=== PATIENT | male | born 1955 | race Caucasian/White ===

== ENCOUNTER 2016-04-09 08:22 | Emergency (ER) | payer OTHER ==
--- NOTE | 2016-04-09 09:58 | ER Document Report ---
HPI - HPI Patient complains to provider of: rash Onset: This morning Onset/Duration: Sudden Quality of pain: Achy, Burning Severity: Severe Pain Level: 5 Context: Patient presents to the emergency department with complaints of a rash that just started this morning. Patient reports history of shingles. He reports it feels the same way. He denies other symptoms such as fever vomiting diarrhea. He has not received a shingles vaccine Associated Symptoms: None Exacerbated by: Denies Relieved by: Denies Similar symptoms previously: Yes Recently seen / treated by doctor: No - DERM Skin Color: Normal Past Medical History - General Information source: Patient - Social History Smoking Status: Current Every Day Smoker Cigarette use (# per day): Yes Chew tobacco use (# tins/day): No Frequency of alcohol use: None Drug Abuse: None Lives with: Family - Son Family History: Reviewed & Not Pertinent Patient has suicidal ideation: No Patient has homicidal ideation: No - Past Medical History Cardiac Medical History: Reports: Hx Hypercholesterolemia, Hx Hypertension Pulmonary Medical History: Reports: Hx COPD Neurological Medical History: Reports: Hx Cerebrovascular Accident - x 4 Renal/ Medical History: Denies: Hx Peritoneal Dialysis Past Surgical History: Reports: Hx Carotid Endarterectomy - R carotid endarterectomy 2 years ago, left carotid enterectomy 3 days ago., Hx Orthopedic Surgery - left shoulder, left leg, Hx Vascular Surgery - Left femoral endarterectomy with left external iliac angioplasty and stent. - Immunizations Hx Diphtheria, Pertussis, Tetanus Vaccination: Yes Vertical Provider Document - CONSTITUTIONAL Agree With Documented VS: Yes Exam Limitations: No Limitations General Appearance: WD/WN, No Apparent Distress - INFECTION CONTROL TRAVEL OUTSIDE OF THE [place] IN LAST 30 DAYS: No - HEENT HEENT: Atraumatic, Normocephalic - NECK Neck: Normal Inspection, Supple. negative: Lymphadenopathy-Left, Lymphadenopathy-Right - RESPIRATORY Respiratory: Breath Sounds Normal, No Respiratory Distress O2 Sat by Pulse Oximetry: 96 - CARDIOVASCULAR Cardiovascular: Regular Rate - GI/ABDOMEN Gastrointestinal: Abdomen Soft, Abdomen Non-Tender - BACK Back: Normal Inspection - MUSCULOSKELETAL/EXTREMETIES Musculoskeletal/Extremeties: MAEW, FROM - NEURO Level of Consciousness: Awake, Alert, Appropriate Motor/Sensory: No Motor Deficit - DERM Integumentary: Warm, Dry, Rash - Typical shingles rash noted to patient's lower left side back upper buttocks area. small scattered vesicles with no open wounds Adult Front & Back Diagram: 1 - shingles rash Course - Re-evaluation Re-evalutation: 04/09/16 Patient instructed on medication. He reports he's taking valacyclovir before. [facility] and to [facility] vaccine. Medication prescriptions were written. Pharmacy latter called and reports patient cannot afford the medication and he cannot wait until the [facility] tomorrow. Valcyclovir was changed to acyclovir. Patient was notified of the switch in medication - Vital Signs Vital signs: Temp Pulse Resp BP Pulse Ox 98.1 F 86 20 175/84 H 96 04/09/16 08:26 04/09/16 08:26 04/09/16 08:26 04/09/16 08:26 04/09/16 08:26 Discharge - Discharge Clinical Impression: Elevated blood pressure reading Shingles Qualifiers: Herpes zoster complications: without complications Qualified Code(s): B02.9 - Zoster without complications Condition: Stable Disposition: HOME, SELF-CARE Instructions: Oral Narcotic Medication ([facility]), Shingles ([facility]), Use of Diphenhydramine Additional Instructions: *You have been treated for shingles *Take medication as prescribed *Monitor the site for signs of infection such as increasing redness, swelling, warmth, pain *Take benadryl as indicated *[facility] *Monitor your blood pressure. Your blood pressure was elevated today. This may be because you were anxious, in pain or because you need medication. It is important to follow up with your primary care provider for full evaluation. *Return to ED for signs of infection, worsening condition, changes, needs Prescriptions: Hydrocodone/Acetaminophen [[place] 5-325 Tablet] 1 each PO QID #15 tablet Valacyclovir HCl [Valacyclovir] 1,000 mg PO TID #21 tablet Forms: Elevated Blood Pressure
[2016-04-09 10:12] VITALS: BP 119/79
== END 2016-04-09 10:11 | disposition home or self-care (01) ==
LOC: ER 08:22
DX: B02.9 Zoster without complications (principal); R03.0 Elevated blood-pressure reading, without diagnosis of hypertension; R21 Rash and other nonspecific skin eruption; F17.210 Nicotine dependence, cigarettes, uncomplicated
CPT/HCPCS: 99282

== ENCOUNTER 2016-08-02 10:24 | Emergency (ER) | payer OTHER ==
[2016-08-02] MEDS ORDERED: PENICILLIN V POTASSIUM 500 MG TABLET PO ONE (11:02)
--- NOTE | 2016-08-02 11:06 | ER Document Report ---
HPI - HPI Patient complains to provider of: dental pain Onset: Yesterday Onset/Duration: Gradual Quality of pain: Achy Pain Level: 5 Context: Pt complains of left lower jaw pain and swelling from an infected broken tooth. Pt denies any fever. Patient states that he knows that his blood pressure is up because he just took his medicine just prior to coming into the emergency department this morning and it has not had time yet to bring his blood pressure down where it typically runs. Associated Symptoms: Other - Dental pain. denies: Fever Exacerbated by: Denies Relieved by: Denies Similar symptoms previously: Yes Recently seen / treated by doctor: No - ROS ROS below otherwise negative: Yes Systems Reviewed and Negative: Yes All other systems reviewed and negative - CONSTITUTIONAL Constitutional: DENIES: Fever, Chills - EENT Notes: Dental pain - NEURO Neurology: DENIES: Headache - CARDIOVASCULAR Cardiovascular: DENIES: Chest pain - GASTROINTESTINAL Gastrointestinal: DENIES: Nausea, Patient vomiting - MUSCULOSKELETAL Musculoskeletal: DENIES: Back Pain, Neck Pain - DERM Skin Color: Normal Skin Problems: None Past Medical History - General Information source: Patient - Social History Smoking Status: Current Every Day Smoker Chew tobacco use (# tins/day): No Frequency of alcohol use: None Drug Abuse: None Occupation: none Family History: Reviewed & Not Pertinent Patient has suicidal ideation: No Patient has homicidal ideation: No - Past Medical History Cardiac Medical History: Reports: Hx Hypercholesterolemia, Hx Hypertension Pulmonary Medical History: Reports: Hx COPD Neurological Medical History: Reports: Hx Cerebrovascular Accident - x 4 Renal/ Medical History: Denies: Hx Peritoneal Dialysis Past Surgical History: Reports: Hx Carotid Endarterectomy - R carotid endarterectomy 2 years ago, left carotid enterectomy 3 days ago., Hx Orthopedic Surgery - left shoulder, left leg, Hx Vascular Surgery - Left femoral endarterectomy with left external iliac angioplasty and stent. - Immunizations Hx Diphtheria, Pertussis, Tetanus Vaccination: Yes Vertical Provider Document - CONSTITUTIONAL Agree With Documented VS: Yes Exam Limitations: No Limitations General Appearance: WD/WN, No Apparent Distress - INFECTION CONTROL TRAVEL OUTSIDE OF THE [place] IN LAST 30 DAYS: No - HEENT HEENT: Atraumatic, Normocephalic. negative: Pharyngeal Exudate, Pharyngeal Tenderness, Pharyngeal Erythema, Tympanic Membrane Red, Tympanic Membrane Bulging Mouth Diagram: 1 - Decay, dental fracture 2 - tender indurated area, no drainable abscess Notes: swelling along the left lower submandibular area, no submental swelling, no sublingual swelling, no potential airway compromise. - NECK Neck: Normal Inspection, Supple. negative: Lymphadenopathy-Left, Lymphadenopathy-Right - RESPIRATORY Respiratory: Breath Sounds Normal, No Respiratory Distress, Chest Non-Tender O2 Sat by Pulse Oximetry: 97 - CARDIOVASCULAR Cardiovascular: Regular Rate, Regular Rhythm, No Murmur - MUSCULOSKELETAL/EXTREMETIES Musculoskeletal/Extremeties: MAEW - NEURO Level of Consciousness: Awake, Alert, Appropriate - DERM Integumentary: Warm, Dry, No Rash Course - Re-evaluation Re-evalutation: 08/02/16 11:05 The patient has been informed that they may have pre-hypertension or hypertension based on a blood pressure reading in the emergency department. I recommend that patient call the primary care provider listed on their discharge instructions or a physician of their choice by this week to arrange follow-up for further evaluation of possible pre-hypertension her hypertension. - Vital Signs Vital signs: Temp Pulse Resp BP Pulse Ox 97.5 F 98 16 211/107 H 97 08/02/16 10:32 08/02/16 10:32 08/02/16 10:32 08/02/16 10:32 08/02/16 10:32 Discharge - Discharge Clinical Impression: Infected dental caries, Hx of essential hypertension Condition: Stable Disposition: HOME, SELF-CARE Instructions: Toothache ([facility]), Oral Narcotic Medication ([facility]), Penicillin V K ( [facility]), Dentist, Dental Infection or Abscess ([facility]) Additional Instructions: Return immediately for any new or worsening symptoms Followup with your primary care provider, call tomorrow to make a followup appointment, your blood pressure was elevated today your doctor can recheck this for you Follow up with a dentist for further management Prescriptions: Oxycodone HCl/Acetaminophen [Percocet 5-325 mg Tablet] 1 tab PO ASDIR PRN #15 tablet PRN Reason: Penicillin V Potassium [Penicillin Vk 500 mg Tablet] 500 mg PO BID #20 tablet Referrals: [facility] [Provider Group] - Follow up as needed [facility] [Provider Group] - Follow up in 3-5 days
[2016-08-02 11:18] VITALS: BP 161/94
== END 2016-08-02 11:20 | disposition home or self-care (01) ==
LOC: ER 10:24
DX: K02.9 Dental caries, unspecified (principal); K04.7 Periapical abscess without sinus; K08.89 Other specified disorders of teeth and supporting structures; I10 Essential (primary) hypertension; J44.9 Chronic obstructive pulmonary disease, unspecified; F17.200 Nicotine dependence, unspecified, uncomplicated; Z86.73 Personal history of transient ischemic attack (TIA), and cerebral infarction without residual deficits; Z79.899 Other long term (current) drug therapy
CPT/HCPCS: 99282

== ENCOUNTER → 2017-04-26 | Outpatient (CLI) | payer OTHER ==
--- NOTE | 2017-04-27 08:25 | XCELERA REPORT ---
[address] [address] Lower Extremity Arterial Evaluation Name: MIRYAM GOFF Age: 61 yrs Gender: Male : 1955 Patient Status: Outpatient Patient Location: Study Date: 04/26/2017 02:20 PM Procedure: A color flow and duplex scan of the lower extremity arteries was performed bilaterally with velocity and waveform anaylsis. Ankle brachial indicies performed. Reason For Study: PVD Ordering Physician: CALVIN CAGLE Performed By: Sonya Boyd Measurements and Calculations Right Left COMMERCIAL AGENT PSV 139.1 36.2 cm/sec Prox PFA PSV -249.2 -84.9 cm/sec Dist SFA PSV -41.5 cm/sec Prox Pop A PSV 23.9 32.1 cm/sec Dist Pop A PSV -32.2 -23.6 cm/sec Prox FAVIOLA PSV 29.4 cm/sec Dist FAVIOLA PSV 23.9 8.8 cm/sec Prox CATERING SERVICE MANAGER PSV 28.4 41.5 cm/sec Dist CATERING SERVICE MANAGER PSV 22.9 34.3 cm/sec Dist Moraima A PSV 16.1 11.0 cm/sec Shelton Pedis PSV 26.1 13.2 cm/sec Right Side Arterial Evaluation Normal velocity and biphasic waveforms noted in the Common Femoral artery. Biphasic with increased velocity in the Deep Femoral artery. Occluded Femoral artery. Monophasic with reduced velocities, Popliteal to the infrageniculate vessels. 20-49 % stenosis at the Aorto Iliac inflow. with sequential disease. Ankle Brachial index is 0.62. Left Side Arterial Evaluation Near normal velocity and biphasic waveforms noted in the Common Femoral artery. Occluded Femoral artery. Monophasic with reduced velocities, Popliteal to the infrageniculate vessels. Short segment occlusion in the Anterior Tibial artery. 20-49 % stenosis at the Aorto Iliac inflow. with severe sequential disease. Ankle Brachial index is 0.46. Interpretation Summary Severe hemodynamically significant lesions in the bilateral lower extremities, on duplex imaging, at rest. Multilevel , complex PAD , worse on left. : CALVIN CAGLE > Calvin Cagle
== END ==
LOC: SP 13:53
PROVIDERS: ATTEND Surgery
DX: I73.9 Peripheral vascular disease, unspecified (principal)
CPT/HCPCS: 93925

== ENCOUNTER 2017-11-13 11:45 | Emergency (ER) | payer OTHER ==
--- NOTE | 2017-11-13 12:58 | ER Document Report ---
ED General - General Chief Complaint: Wound Infection Stated Complaint: ABSCESS Time Seen by Provider: 11/13/17 12:28 Mode of Arrival: Medic Information source: Patient, Outside Facility Records Notes: Patient was sent from the [facility] facility for concerns about a skin infection and wound infection. Patient has had erythema along surgical incision to his left AKA. Patient states that he has had previous episodes of in traction and was treated with antibiotics. Patient is not presently taking any antibiotics at this time. Patient also states that he leaks urine typically at nighttime but has been doing this for some time. Transfer note from the rehab facility states the patient has been lethargic. Patient presently awake alert oriented answering history questions without difficulty. TRAVEL OUTSIDE OF THE [place] IN LAST 30 DAYS: No - HPI Onset: This morning Onset/Duration: Gradual Pain Level: Denies Associated symptoms: denies: Chest pain, Nonproductive cough, Productive cough, Fever, Nausea, Vomiting Exacerbated by: Denies Relieved by: Denies Similar symptoms previously: Yes Recently seen / treated by doctor: No - Related Data Allergies/Adverse Reactions: No Known Allergies Allergy (Verified 08/02/16 10:28) Past Medical History - General Information source: Patient, Outside Facility Records - Social History Smoking Status: Never Smoker Frequency of alcohol use: None Drug Abuse: None [facility] with: [facility] Family History: Reviewed & Not Pertinent - Past Medical History Cardiac Medical History: Reports: Hx Hypercholesterolemia, Hx Hypertension Pulmonary Medical History: Reports: Hx COPD Neurological Medical History: Reports: Hx Cerebrovascular Accident - x 4 Renal/ Medical History: Denies: Hx Peritoneal Dialysis Psychiatric Medical History: Reports: Hx Post Traumatic Stress Disorder Past Surgical History: Reports: Hx Carotid Endarterectomy - R carotid endarterectomy 2 years ago, left carotid enterectomy 3 days ago., Hx Orthopedic Surgery - left shoulder, left leg, Hx Vascular Surgery - Left femoral endarterectomy with left external iliac angioplasty and stent. - Immunizations Hx Diphtheria, Pertussis, Tetanus Vaccination: Yes Review of Systems - Review of Systems Constitutional: No symptoms reported. denies: Fever, Recent illness EENT: No symptoms reported Cardiovascular: No symptoms reported. denies: Chest pain Respiratory: No symptoms reported. denies: Cough, Short of breath Gastrointestinal: No symptoms reported. denies: Abdominal pain, Nausea, Vomiting Genitourinary: Incontinence Male Genitourinary: No symptoms reported Musculoskeletal: Other - Phantom limb pain to left leg Skin: Other - Erythema along left AKA, scattered erythematous skin lesions to abdomen and extremities Hematologic/Lymphatic: No symptoms reported Neurological/Psychological: No symptoms reported Physical Exam - Vital signs Vitals: Resp Pulse Ox 18 96 11/13/17 13:18 11/13/17 13:18 - General General appearance: Appears well, Alert. No: Lethargic In distress: None - HEENT Head: Normocephalic, Atraumatic Eyes: Normal Conjunctiva: Normal Nasal: Normal Mouth/Lips: Normal Neck: Normal, Supple. No: Lymphadenopathy - Respiratory Respiratory status: No respiratory distress Chest status: Nontender Breath sounds: Normal. No: Rales, Rhonchi, Stridor, Wheezing Chest palpation: Normal - Cardiovascular Rhythm: Regular Heart sounds: S1 appreciated, S2 appreciated - Abdominal Inspection: Normal Distension: No distension Bowel sounds: Normal Tenderness: Nontender Organomegaly: No organomegaly - Back Back: Normal, Nontender - Extremities General upper extremity: Other - weakness to LUE, contracture to left hand General lower extremity: Other - L aka - Neurological Neuro grossly intact: Yes Cognition: Normal Miesha Coma Scale Eye Opening: Spontaneous [place] Coma Scale Verbal: Oriented Miesha Coma Scale Motor: Obeys Commands Miesha Coma Scale Total: 15 - Psychological Associated symptoms: Normal affect, Normal mood - Skin Skin Temperature: Warm Skin Moisture: Dry Skin Color: Erythema - Erythema noted along left AKA stump wound. Multiple erythematous pustular lesion to bilateral extremity and lower abdomen. Abrasion noted to scrotum Skin irregularity: negative: Abscess Course - Re-evaluation Re-evalutation: 11/13/17 15:41 Patient nontoxic in appearance. She without fever or any leukocytosis. No concern for sepsis at this time. Wound culture is pending, will cover with antibiotics for left stump cellulitis with folliculitis to abdomen. Patient has been awake alert oriented and able to give good history regarding his presentation. Patient has not been lethargic during his entire stay in the ER. - Vital Signs Vital signs: Temp Pulse Resp BP Pulse Ox 97.5 F 12 147/80 H 99 11/13/17 17:01 11/13/17 17:00 11/13/17 17:01 11/13/17 15:00 - Laboratory Result Diagrams: 11/13/17 13:30 11/13/17 13:30 Laboratory results interpreted by me: 11/13/17 11/13/17 11/13/17 13:30 13:30 15:00 RBC 4.17 L Hgb 12.0 L Hct 36.1 L RDW 14.7 H Carbon Dioxide 31 H Albumin 3.3 L Urine Urobilinogen 2.0 H Labs- Entire Visit 11/13/17 11/13/17 11/13/17 13:30 13:30 13:30 WBC 9.5 RBC 4.17 L Hgb 12.0 L Hct 36.1 L MCV 87 MCH 28.9 MCHC 33.3 RDW 14.7 H Plt Count 446 Seg Neutrophils % 73.5 Lymphocytes % 15.0 Monocytes % 5.9 Eosinophils % 5.0 Basophils % 0.6 Absolute Neutrophils 7.0 Absolute Lymphocytes 1.4 Absolute Monocytes 0.6 Absolute Eosinophils 0.5 Absolute Basophils 0.1 Sodium 140.3 Potassium 4.0 Chloride 102 Carbon Dioxide 31 H Anion Gap 7 BUN 8 Creatinine 0.68 Est GFR ( Amer) > 60 Est GFR (Non-Af Amer) > 60 Glucose 108 Lactic Acid 0.9 Calcium 9.2 Total Bilirubin 0.7 Direct Bilirubin 0.4 Neonat Total Bilirubin Not Reportable Neonat Direct Bilirubin Not Reportable Neonat Indirect Bili Not Reportable AST 26 ALT 28 Alkaline Phosphatase 79 Total Protein 6.3 Albumin 3.3 L Urine Color Urine Appearance Urine pH Ur Specific [place] Urine Protein Urine Glucose (UA) Urine Ketones Urine Blood Urine Nitrite Urine Bilirubin Urine Urobilinogen Ur Leukocyte Esterase Urine WBC (Auto) Urine RBC (Auto) U Hyaline Cast (Auto) Urine Mucus (Auto) Urine Ascorbic Acid 11/13/17 15:00 WBC RBC Hgb Hct MCV MCH MCHC RDW Plt Count Seg Neutrophils % Lymphocytes % Monocytes % Eosinophils % Basophils % Absolute Neutrophils Absolute Lymphocytes Absolute Monocytes Absolute Eosinophils Absolute Basophils Sodium Potassium Chloride Carbon Dioxide Anion Gap BUN Creatinine Est GFR ( Amer) Est GFR (Non-Af Amer) Glucose Lactic Acid Calcium Total Bilirubin Direct Bilirubin Neonat Total Bilirubin Neonat Direct Bilirubin Neonat Indirect Bili AST ALT Alkaline Phosphatase Total Protein Albumin Urine Color YELLOW Urine Appearance SLIGHTLY-CLOUDY Urine pH 6.0 Ur Specific [place] 1.016 Urine Protein NEGATIVE Urine Glucose (UA) NEGATIVE Urine Ketones NEGATIVE Urine Blood NEGATIVE Urine Nitrite NEGATIVE Urine Bilirubin NEGATIVE Urine Urobilinogen 2.0 H Ur Leukocyte Esterase NEGATIVE Urine WBC (Auto) 3 Urine RBC (Auto) 2 U Hyaline Cast (Auto) 1 Urine Mucus (Auto) OCC Urine Ascorbic Acid NEGATIVE Discharge - Discharge Clinical Impression: Folliculitis Cellulitis Qualifiers: Site of cellulitis: extremity Site of cellulitis of extremity: lower extremity Laterality: left Qualified Code(s): L03.116 - Cellulitis of left lower limb Condition: Stable Disposition: HOME, SELF-CARE Instructions: Cellulitis ([facility]), Cephalexin ([facility]), Folliculitis ([facility]) Additional Instructions: Return immediately for any new or worsening symptoms Followup with your primary care provider, call tomorrow to make a followup appointment Cultures are pending, we will call if you need any different treatment Prescriptions: Cephalexin Monohydrate [Keflex 500 mg Capsule] 500 mg PO Q6H 7 Days capsule Referrals: [facility] [Provider Group] - Follow up as needed
[2017-11-13] MEDS ORDERED: CEFTRIAXONE INJ 1000 MG VIAL IV ONE (13:16)
[2017-11-13 14:08] LABS: ABSOLUTE BASOPHILS # (AUTO) 0.1 10^3/uL (0.0-0.2); ABSOLUTE EOSINOPHILS # (AUTO) 0.5 10^3/uL (0.0-0.6); ABSOLUTE LYMPHOCYTES (AUTO) 1.4 10^3/uL (0.5-4.7); ABSOLUTE MONOCYTES (AUTO) 0.6 10^3/uL (0.1-1.4); BASOPHILS % (AUTO) 0.6 % (0-2); HEMATOCRIT 36.1 % (37.9-51.0); MEAN CORPUSCULAR HEMOGLOBIN 28.9 pg (27.0-33.4); MEAN CORPUSCULAR HGB CONC 33.3 g/dL (32.0-36.0); MEAN CORPUSCULAR VOLUME 87 fl (80-97); MONOCYTES % (AUTO) 5.9 % (3-13); PLATELET COUNT 446 10^3/uL (150-450); RED BLOOD COUNT 4.17 10^6/uL (4.35-5.55); RED CELL DISTRIBUTION WIDTH 14.7 % (11.5-14.0); SEGMENTED NEUTROPHILS % (AUTO) 73.5 % (42-78); TOTAL CELLS COUNTED % (AUTO) 100 %; WHITE BLOOD COUNT 9.5 10^3/uL (4.0-10.5)
[2017-11-13 14:24] LABS: ALANINE AMINOTRANSFERASE 28 U/L (21-72); ALBUMIN 3.3 g/dL (3.5-5.0); ALKALINE PHOSPHATASE 79 U/L (38-126); ANION GAP 7 (5-19); ASPARTATE AMINO TRANSFERASE 26 U/L (17-59); BILIRUBIN,DIRECT 0.4 mg/dL (0.0-0.4); BILIRUBIN,TOTAL 0.7 mg/dL (0.2-1.3); BLOOD UREA NITROGEN 8 mg/dL (7-20); CALCIUM 9.2 mg/dL (8.4-10.2); CARBON DIOXIDE 31 mmol/L (22-30); CHLORIDE 102 mmol/L (98-107); GLUCOSE 108 mg/dL (75-110); SODIUM 140.3 mmol/L (137-145); TOTAL PROTEIN 6.3 g/dL (6.3-8.2)
[2017-11-13 15:23] LABS: APPEARANCE,URINE SLIGHTLY-CLOUDY; BILIRUBIN,URINE NEGATIVE (NEGATIVE); COLOR,URINE YELLOW; GLUCOSE, URINE NEGATIVE (NEGATIVE); KETONES,URINE NEGATIVE (NEGATIVE); LEUKOCYTE ESTERASE,URINE NEGATIVE (NEGATIVE); NITRITE,URINE NEGATIVE (NEGATIVE); PROTEIN,URINE NEGATIVE (NEGATIVE); URINE SPECIFIC GRAVITY 1.016
[2017-11-13] MEDS ORDERED: OXYCODONE HCL IR 5 MG TABLET PO ONE ×2 (16:20→16:33)
[2017-11-13 17:08] VITALS: BP 147/80
== END 2017-11-13 17:08 | disposition home or self-care (01) ==
LOC: ER 11:45
DX: L03.116 Cellulitis of left lower limb (principal); L73.9 Follicular disorder, unspecified; G54.6 Phantom limb syndrome with pain; Z89.612 Acquired absence of left leg above knee; S30.813A Abrasion of scrotum and testes, initial encounter; X58.XXXA Exposure to other specified factors, initial encounter; R32 Unspecified urinary incontinence; I10 Essential (primary) hypertension; J44.9 Chronic obstructive pulmonary disease, unspecified; R53.1 Weakness
CPT/HCPCS: 99283; 96374; 36415; 87040; 87086; 87070; 87205; 83605; 85025; 87077; 80053; 81001; 87186; J0696

== ENCOUNTER 2018-03-19 11:58 | Emergency (ER) | payer OTHER ==
--- NOTE | 2018-03-19 13:18 | ER Document Report ---
ED Medical Screen (RME) - General Chief Complaint: Abscess Stated Complaint: LEFT THIGH PAIN Time Seen by Provider: 03/19/18 13:12 Primary Care Provider: JASPAL PUENTE MD [Primary Care Provider] - Follow up as needed Mode of Arrival: Wheelchair Information source: Patient Notes: Patient presents to the emergency department with complaints of abscess to his left leg. Patient has left BKA. The BKA due to poor circulation attempted bypass and infection. He reports he believes it started last week when he was not sitting with a pad in his wheelchair and the area rubbed against a wheelchair. He reports abscess is draining and is very large. He reports he could not put on his prosthetic leg today because of the abscess and pain. Denies fever vomiting diarrhea. Denies history of MRSA. I have greeted and performed a rapid initial assessment of this patient. A comprehensive ED assessment and evaluation of the patient, analysis of test results and completion of the medical decision making process will be conducted by additional ED providers. Dictation of this chart was performed using voice recognition software; therefore, there may be some unintended grammatical errors. TRAVEL OUTSIDE OF THE [place] IN LAST 30 DAYS: No - Related Data Allergies/Adverse Reactions: No Known Allergies Allergy (Verified 03/19/18 11:59) Past Medical History - Past Medical History Cardiac Medical History: Reports: Hx Hypercholesterolemia, Hx Hypertension Pulmonary Medical History: Reports: Hx COPD Neurological Medical History: Reports: Hx Cerebrovascular Accident - x 4 Renal/ Medical History: Denies: Hx Peritoneal Dialysis Psychiatric Medical History: Reports: Hx Post Traumatic Stress Disorder Past Surgical History: Reports: Hx Carotid Endarterectomy - R carotid endarterectomy 2 years ago, left carotid enterectomy 3 days ago., Hx Orthopedic Surgery - left shoulder, left leg, Hx Vascular Surgery - Left femoral endarterectomy with left external iliac angioplasty and stent. - Immunizations Hx Diphtheria, Pertussis, Tetanus Vaccination: Yes Physical Exam - Vital signs Vitals: Temp Pulse Resp BP Pulse Ox 98.3 F 87 24 H 139/69 H 99 03/19/18 12:29 03/19/18 12:29 03/19/18 12:29 03/19/18 12:29 03/19/18 12:29 Course - Vital Signs Vital signs: Temp Pulse Resp BP Pulse Ox 98.3 F 87 24 H 139/69 H 99 03/19/18 12:29 03/19/18 12:29 03/19/18 12:29 03/19/18 12:29 03/19/18 12:29 Doctor's Discharge - Discharge Referrals: JASPAL PUENTE MD [Primary Care Provider] - Follow up as needed
[2018-03-19] MEDS ORDERED: CEPHALEXIN 500 MG CAPSULE PO ONE (16:26)
[2018-03-19] MEDS ORDERED: SULFAMETHOXAZOLE/TRIMETHOPRIM 800-160 MG TABLET PO ONE (16:26)
--- NOTE | 2018-03-19 16:36 | ER Document Report ---
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 Patient is concerned that it is a new abscess. Does have a history of abscesses in the past. Patient denies fevers, chills, nausea, vomiting, shortness of breath, chest pain, warmth at the site. No other complaints TRAVEL OUTSIDE OF THE [place] IN LAST 30 DAYS: No - Related Data Allergies/Adverse Reactions: No Known Allergies Allergy (Verified 03/19/18 11:59) Past Medical History - General Information source: Patient - Social History Smoking Status: Current Every Day Smoker Frequency of alcohol use: None Drug Abuse: None Family History: Reviewed & Not Pertinent Patient has suicidal ideation: No Patient has homicidal ideation: No - Past Medical History Cardiac Medical History: Reports: Hx Hypercholesterolemia, Hx Hypertension Pulmonary Medical History: Reports: Hx COPD Neurological Medical History: Reports: Hx Cerebrovascular Accident - x 4 Renal/ Medical History: Denies: Hx Peritoneal Dialysis Psychiatric Medical History: Reports: Hx Depression - PTSD, Hx Post Traumatic Stress Disorder Past Surgical History: Reports: Hx Carotid Endarterectomy - R carotid endarterectomy 2 years ago, left carotid enterectomy 3 days ago., Hx Orthopedic Surgery - left shoulder, left leg, Hx Vascular Surgery - Left femoral endarterectomy with left external iliac angioplasty and stent. - Immunizations Hx Diphtheria, Pertussis, Tetanus Vaccination: Yes Review of Systems - Review of Systems Constitutional: See HPI EENT: No symptoms reported Cardiovascular: See HPI Respiratory: See HPI Gastrointestinal: See HPI Genitourinary: No symptoms reported Male Genitourinary: No symptoms reported Musculoskeletal: No symptoms reported Skin: No symptoms reported Hematologic/Lymphatic: No symptoms reported Neurological/Psychological: No symptoms reported Physical Exam - Vital signs Vitals: Temp Pulse Resp BP Pulse Ox 98.3 F 87 24 H 139/69 H 99 03/19/18 12:29 03/19/18 12:29 03/19/18 12:29 03/19/18 12:29 03/19/18 12:29 - Notes Notes: PHYSICAL EXAMINATION: Reviewed vital signs and charting by RN GENERAL: Alert, interacts well. No acute distress. HEAD: Normocephalic, atraumatic. EYES: Pupils equal, round. Extraocular movements intact. ENT: Oral mucosa moist. NECK: Full range of motion. Supple. Trachea midline. EXTREMITIES: Left AKA with abscess on the posterior proximal aspect. There is a hole about the size of a dime with a large mucous plug partially sticking out. There is surrounding erythema. NEUROLOGICAL: Alert and oriented x3. Normal speech. PSYCH: Normal affect, normal mood. Course - Re-evaluation Re-evalutation: 03/19/18 17:36 Well-appearing nontoxic 62-year-old male presents for abscess. Upon inspection there is a large mucous plug and a large open hole the size of a dime. I pulled the mucous plug out and used a pair of small hemostats to find that there was tracking. I was able to express purulent discharge. There is surrounding erythema consistent with mild cellulitis. Plan is for double coverage for MSSA/MRSA. Patient is being seen by the wound clinic and instructed him to call them tomorrow for sooner follow-up the next week. Patient does not have any fevers or any evidence of sepsis or sirs. Stable for discharge with close follow-up. - Vital Signs Vital signs: Temp Pulse Resp BP Pulse Ox 98.3 F 80 20 135/60 H 100 03/19/18 16:00 03/19/18 16:00 03/19/18 16:00 03/19/18 16:00 03/19/18 16:00 Discharge - Discharge Clinical Impression: Abscess Cellulitis Qualifiers: Site of cellulitis: extremity Site of cellulitis of extremity: lower extremity Laterality: left Qualified Code(s): L03.116 - Cellulitis of left lower limb Condition: Good Disposition: HOME, SELF-CARE Instructions: Abscess ([facility]), Cephalexin ([facility]), Trimethoprim-Sulfa ([facility]) Additional Instructions: You were seen in the emergency department this afternoon for an abscess and a mild case of cellulitis. Please call the wound clinic tomorrow to arrange follow-up care. You had a moderate size abscess on the back of your left leg with about a dime sized hole where it is actively discharging purulent drainage. This is good. Maintain your dressings and do daily dressing changes for more frequent if you have excessive drainage. If you develop fever, chills, nausea, vomiting, infectious symptoms, or you feel ill please follow-up with your primary care or return to the emergency department. Prescriptions: Cephalexin Monohydrate [Keflex 500 mg Capsule] 500 mg PO Q6H 7 Days capsule Sulfamethoxazole/Trimethoprim [Bactrim Ds Tablet] 1 each PO BID #14 tablet Referrals: JASPAL PUENTE MD [ACTIVE STAFF] - Follow up as needed
[2018-03-19 16:42] VITALS: BP 135/60
== END 2018-03-19 16:43 | disposition home or self-care (01) ==
LOC: ER 11:58
DX: L02.416 Cutaneous abscess of left lower limb (principal); L03.116 Cellulitis of left lower limb; F17.200 Nicotine dependence, unspecified, uncomplicated; J44.9 Chronic obstructive pulmonary disease, unspecified
CPT/HCPCS: 99282; A6266

== ENCOUNTER 2018-06-09 10:41 | Inpatient (IN) | payer OTHER ==
--- NOTE | 2018-06-09 11:02 | ER Document Report ---
ED Medical Screen (RME) - General Chief Complaint: Hip Injury Stated Complaint: FALL/HIP PAIN Time Seen by Provider: 06/09/18 10:53 Primary Care Provider: MITESH,ALEE [Primary Care Provider] - Follow up as needed Mode of Arrival: Wheelchair Information source: Patient Notes: Patient is a 63-year-old male, patient of the [place] clinic presenting with multiple complaints. Patient's private home health aide is accompanying him. She states patient has not had any urinary output in greater than 24 hours, patient reports he has tried multiple times and nothing will come out. He states he has low abdominal pain due to this. Patient also is complaining of right-sided hip pain from a fall last week. Patient is wheelchair-bound, he has a left [id number] amputation. He is also had low-grade fevers and has a wound on his buttocks. The home health aide that is accompanying him states that the wound just appeared a few days ago. Exam: Patient alert, oriented and answering all questions appropriately. Lung sounds are clear to auscultation bilaterally. I have greeted and performed a rapid initial assessment of this patient. A comprehensive ED assessment and evaluation of the patient, analysis of test results and completion of the medical decision making process will be conducted by additional ED providers. Dictation of this chart was performed using voice recognition software; therefore, there may be some unintended grammatical errors. TRAVEL OUTSIDE OF THE [place] IN LAST 30 DAYS: No - Related Data Allergies/Adverse Reactions: No Known Allergies Allergy (Verified 03/19/18 11:59) Past Medical History - Social History Chew tobacco use (# tins/day): No Frequency of alcohol use: None Drug Abuse: Marijuana - Past Medical History Cardiac Medical History: Reports: Hx Hypercholesterolemia, Hx Hypertension Pulmonary Medical History: Reports: Hx COPD Neurological Medical History: Reports: Hx Cerebrovascular Accident - x 4 Renal/ Medical History: Denies: Hx Peritoneal Dialysis Psychiatric Medical History: Reports: Hx Depression - PTSD, Hx Post Traumatic Stress Disorder Past Surgical History: Reports: Hx Carotid Endarterectomy - R carotid endarterectomy 2 years ago, left carotid enterectomy 3 days ago., Hx Orthopedic Surgery - left shoulder, left leg amputation, Hx Vascular Surgery - Left femoral endarterectomy with left external iliac angioplasty and stent. - Immunizations Hx Diphtheria, Pertussis, Tetanus Vaccination: Yes Physical Exam - Vital signs Vitals: Temp Pulse Resp BP Pulse Ox 100.1 F 99 16 127/66 H 95 06/09/18 10:52 06/09/18 10:52 06/09/18 10:52 06/09/18 10:52 06/09/18 10:52 Course - Vital Signs Vital signs: Temp Pulse Resp BP Pulse Ox 100.1 F 99 16 127/66 H 95 06/09/18 10:52 06/09/18 10:52 06/09/18 10:52 06/09/18 10:52 06/09/18 10:52 Doctor's Discharge - Discharge [facility]errals: [facility] [Primary [facility]] - Follow up as needed
[2018-06-09 11:49] LABS: HEMATOCRIT 34.5 % (37.9-51.0); HEMOGLOBIN 11.8 g/dL (13.5-17.0); MEAN CORPUSCULAR HEMOGLOBIN 30.5 pg (27.0-33.4); MEAN CORPUSCULAR HGB CONC 34.3 g/dL (32.0-36.0); MEAN CORPUSCULAR VOLUME 89 fl (80-97); PLATELET COUNT 414 10^3/uL (150-450); RED BLOOD COUNT 3.88 10^6/uL (4.35-5.55); RED CELL DISTRIBUTION WIDTH 14.5 % (11.5-14.0); WHITE BLOOD COUNT 25.1 10^3/uL (4.0-10.5)
[2018-06-09 11:50] LABS: ALANINE AMINOTRANSFERASE 25 U/L (21-72); ALBUMIN 3.6 g/dL (3.5-5.0); ALKALINE PHOSPHATASE 117 U/L (38-126); ANION GAP 14 (5-19); ASPARTATE AMINO TRANSFERASE 50 U/L (17-59); BILIRUBIN,DIRECT 0.5 mg/dL (0.0-0.4); BILIRUBIN,TOTAL 0.9 mg/dL (0.2-1.3); BLOOD UREA NITROGEN 14 mg/dL (7-20); CALCIUM 9.3 mg/dL (8.4-10.2); CARBON DIOXIDE 27 mmol/L (22-30); CHLORIDE 91 mmol/L (98-107); GLUCOSE 141 mg/dL (75-110); POTASSIUM 4.5 mmol/L (3.6-5.0); SODIUM 131.7 mmol/L (137-145)
--- NOTE | 2018-06-09 11:57 | RADIOLOGY REPORT (SQ) ---
EXAM DESCRIPTION: PELVIS AP COMPLETED DATE/TIME: 06/09/2018 11:36 am REASON FOR STUDY: fall, right hip pain COMPARISON: None. NUMBER OF VIEWS: Single AP view pelvis. LIMITATIONS: None. FINDINGS: Osteopenic. Mild hip DJD. No areas of bone destruction. No fracture. Lower lumbar spon dylosis and SI joint DJD. OTHER: No other significant finding. IMPRESSION: No acute radiographic abnormality. TECHNICAL DOCUMENTATION: JOB ID: [id number] Reading location - IP/workstation name: [email or web address]
[2018-06-09 12:28] LABS: ABSOLUTE LYMPHOCYTES# (MANUAL) 1.3 10^3/uL (0.5-4.7); ABSOLUTE MONOCYTES # (MANUAL) 0.8 10^3/uL (0.1-1.4); ABSOLUTE NEUTROPHILS# (MANUAL) 22.8 10^3/uL (1.7-8.2); BASOPHILS % (MANUAL) 0 % (0-2); EOSINOPHILS % (MANUAL) 1 % (0-6); LYMPHOCYTES % (MANUAL) 5 % (13-45); MONOCYTES % (MANUAL) 3 % (3-13); SEGMENTED NEUTROPHILS % (MAN) 91 % (42-78); TOTAL CELLS COUNTED 100
[2018-06-09 12:36] LABS: ANISOCYTOSIS SLIGHT; TOXIC GRANULATION 1+
[2018-06-09 12:37] LABS: PLATELET COMMENT ADEQUATE
[2018-06-09] MEDS ORDERED: VANCOMYCIN HCL INJ 1000 MG VIAL IV ONE (12:44)
[2018-06-09] MEDS ORDERED: PIPERACILLIN/TAZOBACTAM 3.375 GM VIAL IV ONE ×2 (12:45→21:33)
--- NOTE | 2018-06-09 12:52 | ER Document Report ---
ED Hip Pain/Injury - General Chief Complaint: Hip Injury Stated Complaint: FALL/HIP PAIN Time Seen by Provider: 06/09/18 10:53 Primary Care Provider: MITESH,ALEE [Primary Care Provider] - Follow up as needed Mode of Arrival: Wheelchair Information source: Patient Notes: Patient is a 63-year-old male presents today with right hip pain. Patient supposedly has had multiple falls on his right side when attempting to get out of bed. Patient is sure he has not hit his head. Patient has a history of peripheral vascular disease with a left AKA. Patient however is normally very ambulatory. Patient has also been noted to have a recent sacral decubitus wound noted in the last 48 hours by the work adjustment instructor who is currently at bedside. Low- grade fever without vomiting. Patient states pain to his right lateral hip. He denies any pain to his thigh, knee, tibia/fibula, ankle, or foot. Patient denies any lightheadedness, dizziness, headache, or chest pain causing the fall. Patient is on Plavix. TRAVEL OUTSIDE OF THE [place] IN LAST 30 DAYS: No - Related Data Allergies/Adverse Reactions: No Known Allergies Allergy (Verified 03/19/18 11:59) Past Medical History - General Information source: Patient - Social History Smoking Status: Current Every Day Smoker Chew tobacco use (# tins/day): No Frequency of alcohol use: None Drug Abuse: Marijuana Family History: Reviewed & Not Pertinent Patient has suicidal ideation: No Patient has homicidal ideation: No - Past Medical History Cardiac Medical History: Reports: Hx Hypercholesterolemia, Hx Hypertension Pulmonary Medical History: Reports: Hx COPD Neurological Medical History: Reports: Hx Cerebrovascular Accident - x 4 Renal/ Medical History: Denies: Hx Peritoneal Dialysis Psychiatric Medical History: Reports: Hx Depression - PTSD, Hx Post Traumatic Stress Disorder Past Surgical History: Reports: Hx Carotid Endarterectomy - R carotid endarterectomy 2 years ago, left carotid enterectomy 3 days ago., Hx Orthopedic Surgery - left shoulder, left leg amputation, Hx Vascular Surgery - Left femoral endarterectomy with left external iliac angioplasty and stent. - Immunizations Hx Diphtheria, Pertussis, Tetanus Vaccination: Yes Review of Systems - Review of Systems Constitutional: denies: Fever Respiratory: denies: Short of breath Gastrointestinal: denies: Vomiting Genitourinary: denies: Dysuria Musculoskeletal: denies: Leg swelling Neurological/Psychological: Other - no slurred speech -: Yes All other systems reviewed and negative Physical Exam - Vital signs Vitals: Temp Pulse Resp BP Pulse Ox 100.1 F 99 16 127/66 H 95 06/09/18 10:52 06/09/18 10:52 06/09/18 10:52 06/09/18 10:52 06/09/18 10:52 Interpretation: Normal Notes: Reviewed vital signs and nursing note as charted by RN. CONSTITUTIONAL: Alert and oriented and responds appropriately to questions. Well-appearing; well-nourished HEAD: Normocephalic; atraumatic EYES: PERRL; Conjunctivae clear, sclerae non-icteric NECK: Supple without meningismus; non-tender; no cervical lymphadenopathy, no masses CARD: Regular rate and rhythm; no murmurs; symmetric distal pulses RESP: Normal chest excursion without splinting or tachypnea; breath sounds clear and equal bilaterally; no wheezes, no rhonchi, no rales ABD/GI: Normal bowel sounds; soft, non-tender; suprapubic fullness present BACK: Patient has what appears to be a sacral decubitus ulcer more the left lateral side of the lower lumbar sacral region. Surrounding erythema is present. It does not appear to extend into the perirectal region EXT: Normal ROM in all joints; non-tender to palpation; no edema SKIN: No acute lesions noted NEURO: CN 2-12 intact; 5/5 bilateral upper and lower extremity strength with sensation intact to light touch PSYCH: The patient's mood and manner are appropriate. Grooming and personal hygiene are appropriate. Course - Re-evaluation Re-evalutation: Given the above history and physical examination, a septic workup was ordered in triage as well as a pelvis/hip x-ray. Temperature as recorded. Examination is recorded. I am concerned about a possible sacral decubitus infection causing the symptomatology. I would also like to rule out hip fracture. Patient has 5 out of 5 plantar and flexor extension of the right foot with good distal pulses. Left AKA present. I do not believe CT imaging of the head is necessary given the lack of any head trauma in this oriented patient. 06/09/18 12:51 Labs as recorded. Broad-spectrum antibiotics have been provided. I have called and spoken directly to the surgeon who states that he will come and consult on the patient. The surgeon now believes he would take the patient to the operating room to help remove a possible abscess to that region. - Vital Signs Vital signs: Temp Pulse Resp BP Pulse Ox 100.1 F 99 16 127/66 H 95 06/09/18 10:52 06/09/18 10:52 06/09/18 10:52 06/09/18 10:52 06/09/18 10:52 - Laboratory Result Diagrams: 06/09/18 11:05 06/09/18 11:05 Laboratory results interpreted by me: 06/09/18 06/09/18 11:05 11:05 WBC 25.1 H RBC 3.88 L Hgb 11.8 L Hct 34.5 L RDW 14.5 H Seg Neuts % (Manual) 91 H Lymphocytes % (Manual) 5 L Abs Neuts (Manual) 22.8 H Sodium 131.7 L Chloride 91 L Glucose 141 H Direct Bilirubin 0.5 H Discharge - Discharge Clinical Impression: Sacral decubitus ulcer Qualifiers: Pressure injury stage: unspecified pressure injury stage Qualified Code(s): L89.159 - Pressure ulcer of sacral region, unspecified stage Fever Qualifiers: Fever type: unspecified Qualified Code(s): R50.9 - Fever, unspecified Fall Qualifiers: Encounter type: initial encounter Qualified Code(s): W19.XXXA - Unspecified fall, initial encounter Contusion of right hip Qualifiers: Encounter type: initial encounter Qualified Code(s): S70.01XA - Contusion of right hip, initial encounter Condition: Fair Disposition: ADMITTED OBSERVATION Admitting Provider: Surgicalist Unit Admitted: Surgical Floor [facility]errals: [facility] [Primary [facility]] - Follow up as needed
[2018-06-09] MEDS ORDERED: MIDAZOLAM 2 MG/2 ML INJ ONE (15:34)
[2018-06-09] MEDS ORDERED: LIDOCAINE 1% INJ-PF (10 MG/ML) 30 ML SDV ONE (15:34)
[2018-06-09] MEDS ORDERED: FENTANYL CITRATE INJ/PF 100 MCG/2 ML AMPUL ONE (15:34)
[2018-06-09] MEDS ORDERED: PROPOFOL INJ 200 MG/20 ML VIAL IV ONE (15:34)
[2018-06-09] MEDS ORDERED: IPRATROPIUM/ALBUTEROL 0.5-2.5 MG/3 ML AMPUL NEB PRN (15:44)
[2018-06-09] MEDS ORDERED: MAGNESIUM HYDROXIDE SUSP 30 ML UDCUP PO PRN (15:44)
[2018-06-09] MEDS ORDERED: ONDANSETRON HCL INJ/PF 4 MG/2 ML SDV IV PRN ×2 (15:44→17:57)
[2018-06-09] MEDS ORDERED: PROMETHAZINE HCL INJ 25 MG/1 ML VIAL IV PRN (15:44)
[2018-06-09] MEDS ORDERED: ACETAMINOPHEN 325 MG TABLET PO PRN (15:44)
[2018-06-09] MEDS ORDERED: MAG HYDROX/AL HYDROX/SIMETH SUSP 30 ML UDCUP PO PRN (15:44)
[2018-06-09] MEDS ORDERED: VANCOMYCIN HCL 0 MG in DEXTROSE 5%-WATER 250 ML IV NR (16:00)
[2018-06-09] MEDS ORDERED: HYDRALAZINE HCL INJ/PF 20 MG/1 ML SDV IV PRN (16:04)
--- NOTE | 2018-06-09 16:08 | PDOC H&P ---
History of Present Illness Admission Date/PCP: 06/09/18 13:15 Patient complains of: hip pain History of Present Illness: MIRYAM GOFF is a 63 year old male with a past medical history of multiple CVAs, on dual antiplatelet therapy, hypertension, hyperlipidemia, COPD, left AKA secondary to PAD, tobacco dependence with continuous use, and chronic pain on opiate medications who presents to the emergency department after multiple falls at home resulting in right hip pain and a left lateral unstageable sacral decubitus wound. Evaluation in the emergency department revealed a low-grade temperature (100.1), tachycardia (120), leukocytosis (WBCs 25.1), unremarkable chemistry, and normal lactic acid. Surgical services were consulted; Dr. Cox plans to take the patient to the OR today for debridement and requested the hospitalist service to admit and manage chronic medical conditions. Past Medical History Cardiac Medical History: Reports: Hyperlipidema, Hypertension Pulmonary Medical History: Reports: Chronic Obstructive Pulmonary Disease (COPD) Neurological Medical History: Reports: Ischemic CVA Endocrine Medical History: Reports: Obesity Psychiatric Medical History: Reports: Post Traumatic Stress Disorder, Tobacco Dependency Past Surgical History Past Surgical History: Reports: Carotid Endarterectomy - Bilateral, Orthopedic Surgery - left shoulder, left leg amputation, Vascular Surgery - Left femoral endarterectomy with left external iliac angioplasty and stent. Social History Information Source: Patient Lives with: Family Smoking Status: Current Every Day Smoker Cigarettes Packs Per Day: 1 Number of Years Smokin Frequency of Alcohol Use: Rare Hx Recreational Drug Use: No Hx Prescription Drug Abuse: No - Advance Directive Resuscitation Status: Full Code Surrogate healthcare decision maker:: The patient's son, Elias Macias, Family History Family History: Reviewed & Not Pertinent Parental Family History Reviewed: Yes Children Family History Reviewed: Yes Sibling(s) Family History Reviewed.: Yes Medication/Allergy Allergies/Adverse Reactions: No Known Allergies Allergy (Verified 03/19/18 11:59) Review of Systems Constitutional: PRESENT: chills, fatigue, fever(s), weakness. ABSENT: headache(s), weight gain, weight loss Eyes: ABSENT: visual disturbances Ears: ABSENT: hearing changes Cardiovascular: ABSENT: chest pain, dyspnea on exertion, edema, orthropnea, palpitations Respiratory: ABSENT: cough, hemoptysis Gastrointestinal: ABSENT: abdominal pain, constipation, diarrhea, hematemesis, hematochezia, nausea, vomiting Genitourinary: ABSENT: dysuria, hematuria Musculoskeletal: PRESENT: back pain. ABSENT: joint swelling Integumentary: PRESENT: wounds. ABSENT: rash Neurological: PRESENT: confusion. ABSENT: abnormal gait, abnormal speech, dizziness, focal weakness, syncope Psychiatric: ABSENT: anxiety, depression, homidical ideation, suicidal ideation Endocrine: ABSENT: cold intolerance, heat intolerance, polydipsia, polyuria Hematologic/Lymphatic: ABSENT: easy bleeding, easy bruising Physical Exam Vital Signs: Temp Pulse Resp BP Pulse Ox 98.7 F 115 H 20 127/66 H 96 06/09/18 15:25 06/09/18 15:25 06/09/18 15:25 06/09/18 10:52 06/09/18 15:25 Intake & Output 06/08/18 06/09/18 06/10/18 06:59 06:59 06:59 Weight 81.193 kg General appearance: PRESENT: cooperative, mild distress, well-developed, well-nourished - Overweight, other - Acutely ill-appearing Head exam: PRESENT: atraumatic, normocephalic Eye exam: PRESENT: conjunctiva pink, EOMI, PERRLA. ABSENT: scleral icterus Ear exam: PRESENT: normal external ear exam Mouth exam: PRESENT: dry mucosa, tongue midline Neck exam: ABSENT: carotid bruit - Bilateral carotid endarterectomies, JVD, lymphadenopathy, thyromegaly Respiratory exam: PRESENT: prolonged expiratory phas, rhonchi, symmetrical, unlabored, wheezes - Lower right. ABSENT: rales Cardiovascular exam: PRESENT: RRR, +S1, +S2, tachycardia. ABSENT: diastolic murmur, rubs, systolic murmur Pulses: PRESENT: normal dorsalis pedis pul Vascular exam: PRESENT: normal capillary refill GI/Abdominal exam: PRESENT: normal bowel sounds, soft. ABSENT: distended, guarding, mass, organolmegaly, rebound, tenderness Rectal exam: PRESENT: deferred Gentrourinary exam: PRESENT: indwelling catheter Extremities exam: PRESENT: full ROM, other - Left AKA. ABSENT: calf tenderness, clubbing, pedal edema Neurological exam: PRESENT: alert, awake, oriented to person, oriented to place, oriented to time, oriented to situation, CN II-XII grossly intact, other - Confused/repetitive. ABSENT: motor sensory deficit Psychiatric exam: PRESENT: appropriate affect, normal mood. ABSENT: homicidal ideation, suicidal ideation Skin exam: PRESENT: dry, warm, other - Unstageable sacral decubitus wound. ABSENT: cyanosis, rash Results Laboratory Results: 06/09/18 11:05 06/09/18 11:05 06/09/18 06/09/18 06/09/18 11:05 11:05 11:05 WBC 25.1 H RBC 3.88 L Hgb 11.8 L Hct 34.5 L MCV 89 MCH 30.5 MCHC 34.3 RDW 14.5 H Plt Count 414 Seg Neutrophils % Not Reportable Lymphocytes % Not Reportable Monocytes % Not Reportable Eosinophils % Not Reportable Basophils % Not Reportable Absolute Neutrophils Not Reportable Absolute Lymphocytes Not Reportable Absolute Monocytes Not Reportable Absolute Eosinophils Not Reportable Absolute Basophils Not Reportable Sodium 131.7 L Potassium 4.5 Chloride 91 L Carbon Dioxide 27 Anion Gap 14 BUN 14 Creatinine 0.70 Est GFR ( Amer) > 60 Est GFR (Non-Af Amer) > 60 Glucose 141 H Lactic Acid 1.5 Calcium 9.3 Total Bilirubin 0.9 AST 50 ALT 25 Alkaline Phosphatase 117 Total Protein 7.0 Albumin 3.6 Impressions: Pelvis X-Ray 06/09/18 10:59 IMPRESSION: No acute radiographic abnormality. Assessment and Plan - Diagnosis (1) Sepsis Qualifiers: Sepsis type: sepsis due to unspecified organism Qualified Code(s): A41.9 - Sepsis, unspecified organism Is this a current diagnosis for this admission?: Yes Plan: Patient presents with sepsis, due to sacral decubitus wound with surrounding cellulitis (likely MRSA or Pseudomonas given patient's previous wound culture history), present on admission, and evidenced by acute encephalopathy (patient is oriented, but confused, repetitive, and forgetful), with leukocytosis, tachycardia, and fever. Patient meets sepsis 2 criteria. Patient was taken directly to the OR prior to admission orders placed; therefore has not received IV fluid boluses. Presumably he will receive fluid support during his intraoperative period. Lactic acid 1.5. Blood cultures pending. He will be admitted to the medical floor. We will continue maintenance IV fluids He is empirically placed on IV Zosyn and vancomycin (suspected Pseudomonas and MRSA); will adjust as cultures result. Surgery is consulted; appreciate their assistance. Will follow daily CBC and chemistry. (2) Sacral decubitus ulcer Qualifiers: Pressure injury stage: unspecified pressure injury stage Qualified Code(s): L89.159 - Pressure ulcer of sacral region, unspecified stage Is this a current diagnosis for this admission?: Yes Plan: Left lateral unstageable sacral decubitus ulcer present on arrival. Surgery is consulted; appreciate Dr. Cox's assistance. Patient is taken directly to the OR from the ED. Wound care per surgery's direction. Cultures and antibiotics as above. (3) HTN (hypertension) Is this a current diagnosis for this admission?: Yes Plan: Patient reports a history of hypertension; unfortunately the patient's caregiver left with his home medications prior to full reconciliation being completed. The patient is confused and when asked what he takes at home repeatedly directs me to look in to his belongings back which only contains his shoes. Cardiac diet with no longer n.p.o. for surgery. IV hydralazine as needed for blood pressure control. We will resume home medications once reconciled. (4) HLD (hyperlipidemia) Is this a current diagnosis for this admission?: Yes Plan: Cardiac diet, statin therapy. (5) History of CVA (cerebrovascular accident) Is this a current diagnosis for this admission?: Yes Plan: Patient reports history of CVA events with mild left upper extremity residual weakness. We will resume the patient's daily aspirin and Plavix therapy tomorrow (to the OR tonight). Continue statin therapy. We will resume his home dose antihypertensives once reconciled. Cardiac diet. (6) Contusion of right hip Qualifiers: Encounter type: initial encounter Qualified Code(s): S70.01XA - Contusion of right hip, initial encounter Is this a current diagnosis for this admission?: Yes Plan: Secondary to fall at home. Daily returns. Analgesics as needed. (7) Tobacco dependence Is this a current diagnosis for this admission?: Yes Plan: Smoking cessation encouraged, nicotine replacement therapies provided. - Time Time Spent with patient: 35 or more minutes Smoking Cessation Education: 3 to 10 minutes Anticipated discharge: SNF - vs home w/ HH. Anticipate possible wound vac needs. - Inpatient Certification Based on my medical assessment, after consideration of the patient's comorbidities, presenting symptoms, or acuity I expect that the services needed warrant INPATIENT care.: Yes I certify that my determination is in accordance with my understanding of Medicare's requirements for reasonable and necessary INPATIENT services [42 CFR 412.3e].: Yes Medical Necessity: Need For IV Fluids, Need for IV Antibiotics
[2018-06-09] MEDS ORDERED: DIPHENHYDRAMINE HCL 50 MG/ML VIAL IV PRN (16:20)
[2018-06-09] MEDS ORDERED: MEPERIDINE HCL/PF INJ 25 MG/1 ML DISP.SYRIN IV PRN (16:20)
[2018-06-09] MEDS ORDERED: FENTANYL CITRATE INJ/PF 100 MCG/2 ML AMPUL IV PRN ×3 (16:20)
[2018-06-09] MEDS ORDERED: LIDOCAINE 0.5% INJ-PF (5 MG/ML) 50 ML SDV ONE (16:31)
[2018-06-09] MEDS ORDERED: NORMAL SALINE 1000 ML 1,000 ML IV ONE (18:00)
--- NOTE | 2018-06-09 18:59 | OPERATIVE REPORT E ---
Operative Report NAME: MIRYAM GOFF : 1955 AGE: 63Y DATE OF SURGERY: 06/09/2018 ROOM: ED12 PREOPERATIVE DIAGNOSIS: LEFT PERIANAL AND COCCYGEAL ABSCESS. POSTOPERATIVE DIAGNOSIS: LEFT PERIANAL AND COCCYGEAL ABSCESS WITH ABSCESS EXTENDING THROUGH THE SUPRALEVATOR MUSCLE. OPERATION: Incision and drainage and debridement of left perianal and lateral coccygeal abscess with necrotic subcutaneous, fascia extending to the supralevator muscle. SURGEON: PHILLY GONZALEZ M.D. ANESTHESIA: Local MAC. 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 Patient noted severe pains in the left buttock area and noted to have a markedly elevated white count and tender reddish swelling along the left pericoccygeal and perianal area. PROCEDURE: Patient was placed in prone position and given adequate IV sedation. The perianal area was then prepped and draped in the usual sterile fashion. Appropriate timeout was then called. Patient had multiple areas of dark discoloration with some soft area underneath. This was then incised from the left perirectal area, which was about 3 to 4 cm from the anal verge, extending cephalad just lateral to the coccygeal area, encompassing a length of about 12 cm. There was a gush of foul-smelling purulent material and there was some necrotic subcutaneous and fascia that were sharply debrided. On further blunt dissection with a finger, the abscess cavity appeared to be going down through the lateral supralevator muscle area. This was then pulse lavaged. No evidence of necrotic area deep to this site, but just some purulent material that was all removed and suctioned out. Further sharp debridement of all necrotic areas was done. Practically all the necrotic skin and subcutaneous and fat as well as some fascia that were involved were sharply removed. Hemostasis obtained with cautery. Specimens were sent for culture. After pulse lavage using at least 2 liters of saline, the cavity towards the supralevator muscle area was then packed with a half-inch Iodoform gauze and all the rest of the cavity also packed with another bottle of Iodoform gauze, which was tied together. Adequate hemostasis was noted. A sterile dressing with 4 x 4 and ABD pad was used to dress the operative site. Patient may need a diverting colostomy because of the proximity of the wound to the rectal site and it is going to be impossible to prevent contamination of the wound. At any rate, patient tolerated the procedure well. Needle, instrument and sponge counts were all correct. Estimated blood loss about 40 mL. Patient brought to the recovery room in guarded condition. DICTATING PHYSICIAN: PHILLY GONZALEZ M.D. [id number] PHY#: [id number] ID: [id number] JOB#: [id number] ACCT: [id number] cc:PHILLY GONZALEZ M.D. > MTDD
[2018-06-09 19:14] LABS: ANION GAP 7 (5-19); BLOOD UREA NITROGEN 13 mg/dL (7-20); CALCIUM 8.1 mg/dL (8.4-10.2); CARBON DIOXIDE 29 mmol/L (22-30); CHLORIDE 95 mmol/L (98-107); GLUCOSE 127 mg/dL (75-110); POTASSIUM 3.7 mmol/L (3.6-5.0); SODIUM 130.7 mmol/L (137-145)
[2018-06-09 19:47] LABS: APPEARANCE,URINE CLEAR; BILIRUBIN,URINE NEGATIVE (NEGATIVE); COLOR,URINE YELLOW; GLUCOSE, URINE NEGATIVE (NEGATIVE); KETONES,URINE NEGATIVE (NEGATIVE); LEUKOCYTE ESTERASE,URINE NEGATIVE (NEGATIVE); NITRITE,URINE NEGATIVE (NEGATIVE); PROTEIN,URINE 30 mg/dL (NEGATIVE); URINE SPECIFIC GRAVITY 1.017
[2018-06-09] MEDS: DOCUSATE SODIUM 100 MG/10 ML UDC PO SCH (20:20)
[2018-06-09] MEDS: METRONIDAZOLE 500 MG/NS RTU 500 MG/100 ML RTUPB IV SCH (20:20)
[2018-06-09] MEDS ORDERED: VANCOMYCIN HCL INJ 1000 MG VIAL ONE (21:33)
[2018-06-09] MEDS: VANCOMYCIN HCL 1,000 MG in DEXTROSE 5%-WATER 250 ML IV SCH (22:06)
[2018-06-09] MEDS: PIPERACILLIN SODIUM/TAZOBACTAM 3.375 GM in NORMAL SALINE 100 ML IV SCH (22:07)
[2018-06-09] MEDS: HEPARIN SOD (PORCINE) 5,000 UNIT/ML 1 ML SYRINGE SUBCUT SCH (22:08)
[2018-06-09] MEDS: ATORVASTATIN CALCIUM 20 MG TABLET PO SCH (22:08)
[2018-06-09] MEDS: FAMOTIDINE INJ/PF 20 MG/2 ML SDV IV SCH (22:08)
[2018-06-09] MEDS: NORMAL SALINE 1000 ML 1,000 ML IV PRN (22:17)
--- NOTE | 2018-06-09 23:37 | EKG REPORT ---
SEVERITY:- ABNORMAL ECG - SINUS TACHYCARDIA MULTIPLE ATRIAL PREMATURE COMPLEXES LEFT AXIS DEVIATION CONSIDER ANTEROSEPTAL INFARCT : Confirmed by: Blade Maya 09-Jun-2018 23:36:51
--- NOTE | 2018-06-09 23:37 | EKG REPORT ---
SEVERITY:- ABNORMAL ECG - SINUS TACHYCARDIA LEFT AXIS DEVIATION CONSIDER ANTEROSEPTAL INFARCT : Confirmed by: Blade Maya 09-Jun-2018 23:37:01
[2018-06-10] MEDS: METRONIDAZOLE 500 MG/NS RTU 500 MG/100 ML RTUPB IV SCH ×5 (01:04→23:44)
[2018-06-10] MEDS: PIPERACILLIN SODIUM/TAZOBACTAM 3.375 GM in NORMAL SALINE 100 ML IV SCH ×4 (03:37→20:58)
[2018-06-10 05:43] LABS: HEMATOCRIT 26.9 % (37.9-51.0); MEAN CORPUSCULAR HEMOGLOBIN 29.4 pg (27.0-33.4); MEAN CORPUSCULAR HGB CONC 32.8 g/dL (32.0-36.0); MEAN CORPUSCULAR VOLUME 90 fl (80-97); PLATELET COUNT 259 10^3/uL (150-450); RED CELL DISTRIBUTION WIDTH 14.5 % (11.5-14.0); WHITE BLOOD COUNT 17.4 10^3/uL (4.0-10.5)
[2018-06-10 05:46] LABS: HEMOGLOBIN 8.8 g/dL (13.5-17.0)
[2018-06-10] MEDS: HEPARIN SOD (PORCINE) 5,000 UNIT/ML 1 ML SYRINGE SUBCUT SCH ×3 (05:46→22:10)
[2018-06-10] MEDS: VANCOMYCIN HCL 1,000 MG in DEXTROSE 5%-WATER 250 ML IV SCH ×3 (05:47→22:02)
[2018-06-10 05:54] LABS: ANION GAP 5 (5-19); BLOOD UREA NITROGEN 12 mg/dL (7-20); CALCIUM 8.2 mg/dL (8.4-10.2); GLUCOSE 105 mg/dL (75-110); POTASSIUM 3.2 mmol/L (3.6-5.0)
[2018-06-10 05:58] LABS: ABSOLUTE LYMPHOCYTES# (MANUAL) 1.2 10^3/uL (0.5-4.7); ABSOLUTE MONOCYTES # (MANUAL) 0.9 10^3/uL (0.1-1.4); ABSOLUTE NEUTROPHILS# (MANUAL) 15.3 10^3/uL (1.7-8.2); BASOPHILS % (MANUAL) 0 % (0-2); EOSINOPHILS % (MANUAL) 0 % (0-6); LYMPHOCYTES % (MANUAL) 7 % (13-45); MONOCYTES % (MANUAL) 5 % (3-13); SEGMENTED NEUTROPHILS % (MAN) 88 % (42-78); TOTAL CELLS COUNTED 100
[2018-06-10 05:59] LABS: TOXIC GRANULATION 1+; TOXIC VACUOLATION PRESENT
[2018-06-10 06:00] LABS: ANISOCYTOSIS SLIGHT; CARBON DIOXIDE 26 mmol/L (22-30); CHLORIDE 103 mmol/L (98-107); HYPOCHROMASIA SLIGHT; SODIUM 134.3 mmol/L (137-145)
[2018-06-10 06:01] LABS: PLATELET COMMENT ADEQUATE
[2018-06-10] MEDS ORDERED: POTASSI CL 20 MEQ/50 ML RIDER 20 MEQ/50 ML RTUPB IV ONE ×2 (06:20→07:30)
[2018-06-10] MEDS ORDERED: POTASSIUM CHLORIDE 10 MEQ CAPSULE.ER PO ONE (08:18)
--- NOTE | 2018-06-10 10:05 | PDOC PROGRESS REPORT ---
Subjective Progress Note for:: 06/10/18 Subjective:: Patient laying in bed; states he gets out of bed transfers to chair at home. Reason For Visit: SCARAL DECUBITUS ULCER,CELLULITIS Physical Exam Vital Signs: Temp Pulse Resp BP Pulse Ox 98.6 F 107 H 18 123/61 91 L 06/10/18 07:41 06/10/18 07:41 06/10/18 07:41 06/10/18 07:41 06/10/18 07:41 Intake & Output 06/09/18 06/10/18 06/11/18 06:59 06:59 06:59 Intake Total 4970 Output Total 2210 Balance 2760 Weight 81.2 kg General appearance: PRESENT: mild distress Rectal exam: PRESENT: other - Patient rolled in the right lateral decubitus position. All packing removed from ischial wound. Surrounding skin slightly macerated with some vitalized fibrinous subcutaneous tissue. No pus draining from wound at this time. Wound repacked with moist saline dressings. Results Laboratory Results: 06/10/18 04:50 06/10/18 04:50 06/09/18 06/09/18 06/09/18 11:05 11:05 11:05 WBC 25.1 H RBC 3.88 L Hgb 11.8 L Hct 34.5 L MCV 89 MCH 30.5 MCHC 34.3 RDW 14.5 H Plt Count 414 Seg Neutrophils % Not Reportable Lymphocytes % Not Reportable Monocytes % Not Reportable Eosinophils % Not Reportable Basophils % Not Reportable Absolute Neutrophils Not Reportable Absolute Lymphocytes Not Reportable Absolute Monocytes Not Reportable Absolute Eosinophils Not Reportable Absolute Basophils Not Reportable Sodium 131.7 L Potassium 4.5 Chloride 91 L Carbon Dioxide 27 Anion Gap 14 BUN 14 Creatinine 0.70 Est GFR ( Amer) > 60 Est GFR (Non-Af Amer) > 60 Glucose 141 H Lactic Acid 1.5 Calcium 9.3 Total Bilirubin 0.9 AST 50 ALT 25 Alkaline Phosphatase 117 Total Protein 7.0 Albumin 3.6 Urine Color Urine Appearance Urine pH Ur Specific [place] Urine Protein Urine Glucose (UA) Urine Ketones Urine Blood Urine Nitrite Ur Leukocyte Esterase Urine WBC (Auto) Urine RBC (Auto) 06/09/18 06/09/18 06/10/18 13:00 18:45 04:50 WBC 17.4 H RBC 3.00 L Hgb 8.8 L D Hct 26.9 L MCV 90 MCH 29.4 MCHC 32.8 RDW 14.5 H Plt Count 259 Seg Neutrophils % Not Reportable Lymphocytes % Not Reportable Monocytes % Not Reportable Eosinophils % Not Reportable Basophils % Not Reportable Absolute Neutrophils Not Reportable Absolute Lymphocytes Not Reportable Absolute Monocytes Not Reportable Absolute Eosinophils Not Reportable Absolute Basophils Not Reportable Sodium 130.7 L Potassium 3.7 Chloride 95 L Carbon Dioxide 29 Anion Gap 7 BUN 13 Creatinine 0.75 Est GFR ( Amer) > 60 Est GFR (Non-Af Amer) > 60 Glucose 127 H Lactic Acid Calcium 8.1 L Total Bilirubin AST ALT Alkaline Phosphatase Total Protein Albumin Urine Color YELLOW Urine Appearance CLEAR Urine pH 6.0 Ur Specific [place] 1.017 Urine Protein 30 H Urine Glucose (UA) NEGATIVE Urine Ketones NEGATIVE Urine Blood SMALL H Urine Nitrite NEGATIVE Ur Leukocyte Esterase NEGATIVE Urine WBC (Auto) 3 Urine RBC (Auto) 8 06/10/18 04:50 WBC RBC Hgb Hct MCV MCH MCHC RDW Plt Count Seg Neutrophils % Lymphocytes % Monocytes % Eosinophils % Basophils % Absolute Neutrophils Absolute Lymphocytes Absolute Monocytes Absolute Eosinophils Absolute Basophils Sodium 134.3 L Potassium 3.2 L Chloride 103 Carbon Dioxide 26 Anion Gap 5 BUN 12 Creatinine 0.72 Est GFR ( Amer) > 60 Est GFR (Non-Af Amer) > 60 Glucose 105 Lactic Acid Calcium 8.2 L Total Bilirubin AST ALT Alkaline Phosphatase Total Protein Albumin Urine Color Urine Appearance Urine pH Ur Specific [place] Urine Protein Urine Glucose (UA) Urine Ketones Urine Blood Urine Nitrite Ur Leukocyte Esterase Urine WBC (Auto) Urine RBC (Auto) Impressions: Pelvis X-Ray 06/09/18 10:59 IMPRESSION: No acute radiographic abnormality. Assessment & Plan - Diagnosis (1) Left ischial pressure sore Qualifiers: Pressure injury stage: stage 4 Qualified Code(s): L89.324 - Pressure ulcer of left buttock, stage 4 Is this a current diagnosis for this admission?: Yes Plan: Impression: Day 1 status post vigorous debridement of left ischial ulcer, with perirectal tension; packing removed today and devitalized skin and subcutaneous tissue but no clinical indication for repeat debridement now. Recommendations 1. Wound repacked; managing this deep, stage IV wound adjacent to the anus with persisting fecal stream will be a challenge. I did not discuss colostomy options with the patient at this time; May be a candidate for wound VAC in a few days 2. We will get patient out of bed to chair.
[2018-06-10] MEDS: CLOPIDOGREL BISULFATE 75 MG TABLET PO SCH (10:39)
[2018-06-10] MEDS: ASPIRIN 81 MG TABLET, CHEWABLE PO SCH (10:39)
[2018-06-10] MEDS: FAMOTIDINE INJ/PF 20 MG/2 ML SDV IV SCH ×2 (10:39→22:10)
[2018-06-10] MEDS: NICOTINE 14 MG/24 HR PATCH.TD24 TD SCH (10:39)
[2018-06-10] MEDS: DOCUSATE SODIUM 100 MG/10 ML UDC PO SCH ×2 (10:39→17:14)
[2018-06-10] MEDS: NORMAL SALINE 1000 ML 1,000 ML IV PRN ×2 (15:08→23:49)
[2018-06-10] MEDS: OXYCODONE-ACETAMINOPHEN 5-325 MG TABLET PO PRN ×2 (16:34→23:48)
--- NOTE | 2018-06-10 17:32 | PDOC PROGRESS REPORT ---
Subjective Progress Note for:: 06/10/18 Subjective:: MIRYAM GOFF is a 63 year old male with a past medical history of multiple CVAs, on dual antiplatelet therapy, hypertension, hyperlipidemia, COPD, left AKA secondary to PAD, tobacco dependence with continuous use, and chronic pain on opiate medications who was admitted 06/09/18 sepsis secondary to sacral decubitus ulcer and surrounding cellulitis. Patient was seen on morning rounds. He was found resting in bed comfortably on room air. He was oriented to self, year and president, but not place or situation. The patient insisted that he was in [place] became upset with me when I informed him that he was at a hospital in [facility]. Comfort ent tells me that he went for a long car ride yesterday and is now in [place] and he does not understand why I will not assist him to return to home. He is reminded that he underwent surgery yesterday for a wound to his sacrum; he again becomes upset and tells me that I must be talking to the wrong person. He did deny fever, chills, chest pain, dyspnea, cough, abdominal pain, nausea and vomiting. Has no questions at this time. No concerns per nursing. Reason For Visit: SACRAL DECUBITUS ULCER,CELLULITIS Physical Exam Vital Signs: Temp Pulse Resp BP Pulse Ox 98.3 F 90 18 104/51 L 93 06/10/18 15:57 06/10/18 15:57 06/10/18 15:57 06/10/18 15:57 06/10/18 15:57 Intake & Output 06/09/18 06/10/18 06/11/18 06:59 06:59 06:59 Intake Total 5970 950 Output Total 2210 375 Balance 3760 575 Weight 81.2 kg General appearance: PRESENT: no acute distress, well-developed, well-nourished - Overweight Head exam: PRESENT: atraumatic, normocephalic Eye exam: PRESENT: conjunctiva pink, EOMI, PERRLA. ABSENT: scleral icterus Ear exam: PRESENT: normal external ear exam Mouth exam: PRESENT: moist, tongue midline Neck exam: ABSENT: carotid bruit, JVD, lymphadenopathy, thyromegaly Respiratory exam: PRESENT: rhonchi, symmetrical, unlabored. ABSENT: rales, wheezes Cardiovascular exam: PRESENT: RRR. ABSENT: diastolic murmur, rubs, systolic murmur Pulses: PRESENT: normal dorsalis pedis pul Vascular exam: PRESENT: normal capillary refill GI/Abdominal exam: PRESENT: normal bowel sounds, soft. ABSENT: distended, guarding, mass, organolmegaly, rebound, tenderness Rectal exam: PRESENT: deferred Gentrourinary exam: PRESENT: indwelling catheter Extremities exam: PRESENT: full ROM, other - Left AKA. ABSENT: calf tenderness, clubbing, pedal edema Neurological exam: PRESENT: alert, awake, oriented to person, oriented to time, CN II-XII grossly intact, other - Disoriented to place and situation; becomes upset with attempts to reorient. ABSENT: oriented to place, oriented to situation, motor sensory deficit Psychiatric exam: PRESENT: agitated, appropriate affect. ABSENT: homicidal ideation, suicidal ideation Skin exam: PRESENT: dry, warm, other - would to sacrum not visualized; surgical dressing in place.. ABSENT: cyanosis, rash Results Laboratory Results: 06/10/18 04:50 06/10/18 04:50 06/09/18 06/09/18 06/10/18 13:00 18:45 04:50 WBC 17.4 H RBC 3.00 L Hgb 8.8 L D Hct 26.9 L MCV 90 MCH 29.4 MCHC 32.8 RDW 14.5 H Plt Count 259 Seg Neutrophils % Not Reportable Lymphocytes % Not Reportable Monocytes % Not Reportable Eosinophils % Not Reportable Basophils % Not Reportable Absolute Neutrophils Not Reportable Absolute Lymphocytes Not Reportable Absolute Monocytes Not Reportable Absolute Eosinophils Not Reportable Absolute Basophils Not Reportable Sodium 130.7 L Potassium 3.7 Chloride 95 L Carbon Dioxide 29 Anion Gap 7 BUN 13 Creatinine 0.75 Est GFR ( Amer) > 60 Est GFR (Non-Af Amer) > 60 Glucose 127 H Calcium 8.1 L Urine Color YELLOW Urine Appearance CLEAR Urine pH 6.0 Ur Specific [place] 1.017 Urine Protein 30 H Urine Glucose (UA) NEGATIVE Urine Ketones NEGATIVE Urine Blood SMALL H Urine Nitrite NEGATIVE Ur Leukocyte Esterase NEGATIVE Urine WBC (Auto) 3 Urine RBC (Auto) 8 06/10/18 04:50 WBC RBC Hgb Hct MCV MCH MCHC RDW Plt Count Seg Neutrophils % Lymphocytes % Monocytes % Eosinophils % Basophils % Absolute Neutrophils Absolute Lymphocytes Absolute Monocytes Absolute Eosinophils Absolute Basophils Sodium 134.3 L Potassium 3.2 L Chloride 103 Carbon Dioxide 26 Anion Gap 5 BUN 12 Creatinine 0.72 Est GFR ( Amer) > 60 Est GFR (Non-Af Amer) > 60 Glucose 105 Calcium 8.2 L Urine Color Urine Appearance Urine pH Ur Specific [place] Urine Protein Urine Glucose (UA) Urine Ketones Urine Blood Urine Nitrite Ur Leukocyte Esterase Urine WBC (Auto) Urine RBC (Auto) Impressions: Pelvis X-Ray 06/09/18 10:59 IMPRESSION: No acute radiographic abnormality. Assessment and Plan - Diagnosis (1) Sepsis Qualifiers: Sepsis type: sepsis due to unspecified organism Qualified Code(s): A41.9 - Sepsis, unspecified organism Is this a current diagnosis for this admission?: Yes Plan: Improved; T-max 103.1 in the last 24 hours, tachycardia has resolved, blood pressures remain soft (140/50), tachypnea has resolved, and now maintaining oxygen saturations on room air, Patient remains confused. Patient presents with sepsis, due to sacral decubitus wound with surrounding cellulitis (likely MRSA or Pseudomonas given patient's previous wound culture history), present on admission, and evidenced by acute encephalopathy (patient is oriented, but confused, repetitive, and forgetful), with leukocytosis, tachycardia, and fever. Patient meets sepsis 2 criteria. Patient was taken directly to the OR prior to admission orders placed; he did receive generous IV fluids during the intraoperative period (5L in first 24 hrs) Lactic acid 1.5. Blood cultures are negative at 24 hours. He is admitted to the medical floor. Continue maintenance IV fluids He is empirically placed on IV Zosyn and vancomycin (suspected Pseudomonas and MRSA); will adjust as cultures result. Surgery is consulted; appreciate their assistance. Will follow daily CBC and chemistry. (2) Sacral decubitus ulcer Qualifiers: Pressure injury stage: stage 4 Qualified Code(s): L89.154 - Pressure ulcer of sacral region, stage 4 Is this a current diagnosis for this admission?: Yes Plan: Now POD#1 surgical debridement. Left lateral unstageable sacral decubitus ulcer present on arrival. Surgery is consulted. Spoke with Dr. Cox; wound is extensive and bordering against the rectum. He may require colostomy. Wound care per surgery's direction. Cultures and antibiotics as above. (3) HTN (hypertension) Is this a current diagnosis for this admission?: Yes Plan: Patient reports a history of hypertension; blood pressures remain low (104/50) Cardiac diet once no longer n.p.o. for surgery. IV hydralazine as needed for blood pressure control. We will hold on resuming patient's home medications at this time as blood pressures remain soft. Will resume when appropriate. (4) HLD (hyperlipidemia) Is this a current diagnosis for this admission?: Yes Plan: Cardiac diet, statin therapy. (5) History of CVA (cerebrovascular accident) Is this a current diagnosis for this admission?: Yes Plan: Patient reports history of CVA events with mild left upper extremity residual weakness. We will resume the patient's daily aspirin and Plavix therapy once cleared by Surgery (plans for possible additional debridement and/or colostomy). Continue statin therapy. We will resume his home dose antihypertensives once blood pressures allow. Cardiac diet. (6) Contusion of right hip Qualifiers: Encounter type: initial encounter Qualified Code(s): S70.01XA - Contusion of right hip, initial encounter Is this a current diagnosis for this admission?: Yes Plan: Secondary to fall at home. Turn/reposition every 2 hours. Analgesics as needed. Physical therapy consultation. (7) Tobacco dependence Is this a current diagnosis for this admission?: Yes Plan: Smoking cessation encouraged, nicotine replacement therapies provided. (8) Acute encephalopathy Is this a current diagnosis for this admission?: Yes Plan: Acute metabolic encephalopathy secondary to #1. Supportive care. Gentle IV fluids. Cultures and antibiotics as above. Fall precautions. - Time Time Spent with patient: 15-24 minutes Medications reviewed and adjusted accordingly: Yes Anticipated discharge: Home with Homehealth
[2018-06-10] MEDS: AMITRIPTYLINE HCL 25 MG TABLET PO SCH (22:05)
[2018-06-10] MEDS: OXYCODONE HCL IR 5 MG TABLET PO PRN (22:05)
[2018-06-10] MEDS: ATORVASTATIN CALCIUM 20 MG TABLET PO SCH (22:05)
[2018-06-10] MEDS: GABAPENTIN 300 MG CAPSULE PO SCH (22:05)
[2018-06-11] MEDS: PIPERACILLIN SODIUM/TAZOBACTAM 3.375 GM in NORMAL SALINE 100 ML IV SCH ×4 (02:53→21:47)
[2018-06-11] MEDS: OXYCODONE HCL IR 5 MG TABLET PO PRN ×3 (02:54→17:17)
[2018-06-11] MEDS: METRONIDAZOLE 500 MG/NS RTU 500 MG/100 ML RTUPB IV SCH (05:18)
[2018-06-11] MEDS: OXYCODONE-ACETAMINOPHEN 5-325 MG TABLET PO PRN ×3 (06:49→21:45)
[2018-06-11] MEDS: GABAPENTIN 300 MG CAPSULE PO SCH ×3 (06:50→21:45)
[2018-06-11] MEDS: HEPARIN SOD (PORCINE) 5,000 UNIT/ML 1 ML SYRINGE SUBCUT SCH ×3 (06:50→21:46)
[2018-06-11] MEDS: VANCOMYCIN HCL 1,000 MG in DEXTROSE 5%-WATER 250 ML IV SCH ×3 (07:10→22:36)
[2018-06-11 07:29] LABS: ABSOLUTE BASOPHILS # (AUTO) 0.1 10^3/uL (0.0-0.2); ABSOLUTE EOSINOPHILS # (AUTO) 0.3 10^3/uL (0.0-0.6); ABSOLUTE LYMPHOCYTES (AUTO) 0.9 10^3/uL (0.5-4.7); ABSOLUTE MONOCYTES (AUTO) 0.8 10^3/uL (0.1-1.4); ABSOLUTE NEUT (AUTO) 9.1 10^3/uL (1.7-8.2); BASOPHILS % (AUTO) 0.7 % (0-2); EOSINOPHILS % (AUTO) 3.1 % (0-6); HEMOGLOBIN 8.8 g/dL (13.5-17.0); LYMPHOCYTES % (AUTO) 7.9 % (13-45); MEAN CORPUSCULAR HEMOGLOBIN 30.1 pg (27.0-33.4); MEAN CORPUSCULAR HGB CONC 33.7 g/dL (32.0-36.0); MEAN CORPUSCULAR VOLUME 89 fl (80-97); MONOCYTES % (AUTO) 7.4 % (3-13); PLATELET COUNT 294 10^3/uL (150-450); RED BLOOD COUNT 2.91 10^6/uL (4.35-5.55); RED CELL DISTRIBUTION WIDTH 14.6 % (11.5-14.0); SEGMENTED NEUTROPHILS % (AUTO) 80.9 % (42-78); TOTAL CELLS COUNTED % (AUTO) 100 %; WHITE BLOOD COUNT 11.3 10^3/uL (4.0-10.5)
[2018-06-11 07:44] LABS: ANION GAP 5 (5-19); BLOOD UREA NITROGEN 8 mg/dL (7-20); CALCIUM 8.4 mg/dL (8.4-10.2); CARBON DIOXIDE 24 mmol/L (22-30); CHLORIDE 105 mmol/L (98-107); GLUCOSE 100 mg/dL (75-110); POTASSIUM 3.4 mmol/L (3.6-5.0)
[2018-06-11 08:24] LABS: VANCOMYCIN,TROUGH 16.5 ug/mL (5.0-20.0)
[2018-06-11] MEDS ORDERED: EZETIMIBE 10 MG TABLET PO SCH (10:00)
--- NOTE | 2018-06-11 10:13 | PDOC PROGRESS REPORT ---
Subjective Progress Note for:: 06/11/18 Subjective:: This is a 63-year-old male with a large decubitus ulcer overlying the left ischium and buttock. It abuts the anus. The patient underwent debridement of the area several days ago. The patient reports pain in the area, fatigue, malaise. He denies chest pain, shortness of breath, fevers, chills, nausea, vomiting, dizziness, blurry vision. Reason For Visit: SACRAL DECUBITUS ULCER,CELLULITIS Physical Exam Vital Signs: Temp Pulse Resp BP Pulse Ox 98.5 F 88 18 123/74 93 06/11/18 08:00 06/11/18 09:21 06/11/18 09:21 06/11/18 08:00 06/11/18 09:21 Intake & Output 06/10/18 06/11/18 06/12/18 06:59 06:59 06:59 Intake Total 5970 2700 Output Total 2210 375 Balance 3760 2325 Weight 81.2 kg 81 kg Skin exam: PRESENT: other - Wound to the left buttock with developing areas of necrosis. There is a foul odor to the wound. There is obvious purulence present. Results Laboratory Results: 06/11/18 06:42 06/11/18 06:42 06/11/18 06/11/18 06/11/18 06:42 06:42 06:42 WBC 11.3 H RBC 2.91 L Hgb 8.8 L Hct 26.0 L MCV 89 MCH 30.1 MCHC 33.7 RDW 14.6 H Plt Count 294 Seg Neutrophils % 80.9 H Lymphocytes % 7.9 L Monocytes % 7.4 Eosinophils % 3.1 Basophils % 0.7 Absolute Neutrophils 9.1 H Absolute Lymphocytes 0.9 Absolute Monocytes 0.8 Absolute Eosinophils 0.3 Absolute Basophils 0.1 Sodium 134.0 L Potassium 3.4 L Chloride 105 Carbon Dioxide 24 Anion Gap 5 BUN 8 Creatinine 0.66 0.64 Est GFR ( Amer) > 60 > 60 Est GFR (Non-Af Amer) > 60 > 60 Glucose 100 Calcium 8.4 06/09/18 13:00 Swenson Catheter Urine Culture - Final NO GROWTH 2 DAYS 06/09/18 16:17 Buttocks - Left Side Abscess Gram Stain - Final 06/09/18 16:26 Coccyx - Abscess Gram Stain - Final Impressions: Pelvis X-Ray 06/09/18 10:59 IMPRESSION: No acute radiographic abnormality. Assessment & Plan - Diagnosis (2) Sepsis Qualifiers: Sepsis type: sepsis due to unspecified organism Qualified Code(s): A41.9 - Sepsis, unspecified organism Is this a current diagnosis for this admission?: Yes - Plan Summary Plan Summary: This is a 63-year-old male with a large decubitus ulcer of the left buttock area. It is very close to the anus. There is obvious necrotic tissue present. The patient will require further debridement to remove all necrotic tissue. I have encouraged the patient to minimize pressure on this area. Diverting colostomy has also been discussed with the patient. I believe this will be necessary in order to maintain a clean environment for healing. The patient wishes to discuss all of these options with his son, who is coming to see him today. Plan for n.p.o. after midnight with debridement tomorrow (if the patient will consent).
[2018-06-11] MEDS: FAMOTIDINE INJ/PF 20 MG/2 ML SDV IV SCH ×2 (10:31→21:46)
[2018-06-11] MEDS: NICOTINE 14 MG/24 HR PATCH.TD24 TD SCH (10:31)
[2018-06-11] MEDS: TAMSULOSIN HCL 0.4 MG CAP.SR.24H PO SCH (10:32)
[2018-06-11] MEDS: ASPIRIN 81 MG TABLET, CHEWABLE PO SCH (10:32)
[2018-06-11] MEDS: DOCUSATE SODIUM 100 MG/10 ML UDC PO SCH ×2 (10:32→17:17)
[2018-06-11] MEDS: CLOPIDOGREL BISULFATE 75 MG TABLET PO SCH (10:32)
[2018-06-11] MEDS: NORMAL SALINE 1000 ML 1,000 ML IV PRN ×2 (10:42→21:48)
[2018-06-11] MEDS ORDERED: GLUCAGON,HUMAN RECOMB 1 MG INJ SUBCUT PRN (17:55)
[2018-06-11] MEDS ORDERED: DEXTROSE 50%-WATER 25 GM/50 ML DISP.SYRIN IV PRN ×2 (17:55)
[2018-06-11] MEDS ORDERED: DEXTROSE 40% GEL 15 GM TUBE PO PRN ×2 (17:55)
[2018-06-11] MEDS: AMITRIPTYLINE HCL 25 MG TABLET PO SCH (21:45)
[2018-06-11] MEDS: ATORVASTATIN CALCIUM 20 MG TABLET PO SCH (21:45)
[2018-06-12] MEDS: PIPERACILLIN SODIUM/TAZOBACTAM 3.375 GM in NORMAL SALINE 100 ML IV SCH ×4 (03:23→22:26)
--- NOTE | 2018-06-12 04:59 | PDOC PROGRESS REPORT ---
Subjective Progress Note for:: 06/11/18 Subjective:: MIRYAM GOFF is a 63 year old male with a past medical history of multiple CVAs, on dual antiplatelet therapy, hypertension, hyperlipidemia, COPD, left AKA secondary to PAD, tobacco dependence with continuous use, and chronic pain on opiate medications who was admitted 06/09/18 sepsis secondary to sacral decubitus ulcer and surrounding cellulitis. The patient was seen this afternoon on rounds. He is resting comfortably with friends at the bedside. The patient denies any complaints. Nursing denies any concerns. Plan for OR tomorrow for wound debridement. Reason For Visit: SACRAL DECUBITUS ULCER,CELLULITIS Physical Exam Vital Signs: Temp Pulse Resp BP Pulse Ox 99.0 F 80 16 141/74 H 94 06/11/18 23:37 06/12/18 02:00 06/11/18 23:37 06/11/18 23:37 06/11/18 23:37 Intake & Output 06/10/18 06/11/18 06/12/18 06:59 06:59 06:59 Intake Total 5970 2700 3268 Output Total 2210 375 300 Balance 3760 2325 2968 Weight 81.2 kg 81 kg General appearance: PRESENT: well-developed, well-nourished Head exam: PRESENT: atraumatic Eye exam: PRESENT: conjunctiva pink, PERRLA Mouth exam: PRESENT: moist Teeth exam: PRESENT: poor dentation Neck exam: PRESENT: full ROM Respiratory exam: PRESENT: clear to auscultation kami, symmetrical, unlabored Cardiovascular exam: PRESENT: RRR Pulses: PRESENT: normal radial pulses, +1 pedal pulses bilateral - rle only. L AKA GI/Abdominal exam: PRESENT: normal bowel sounds, soft. ABSENT: distended, tenderness Rectal exam: PRESENT: deferred Musculoskeletal exam: ABSENT: ambulatory - L AKA. PT DOES NOT HAVE PROSTHETIC DEVICE. USES WHEELCHAIR FOR MOBILITY, normal inspection - L AKA Neurological exam: PRESENT: alert, awake, oriented to person, oriented to place, oriented to time, oriented to situation Psychiatric exam: PRESENT: appropriate affect Skin exam: PRESENT: dry, intact, normal color Results Laboratory Results: 06/11/18 06:42 06/11/18 06:42 06/11/18 06/11/18 06/11/18 06:42 06:42 06:42 WBC 11.3 H RBC 2.91 L Hgb 8.8 L Hct 26.0 L MCV 89 MCH 30.1 MCHC 33.7 RDW 14.6 H Plt Count 294 Seg Neutrophils % 80.9 H Lymphocytes % 7.9 L Monocytes % 7.4 Eosinophils % 3.1 Basophils % 0.7 Absolute Neutrophils 9.1 H Absolute Lymphocytes 0.9 Absolute Monocytes 0.8 Absolute Eosinophils 0.3 Absolute Basophils 0.1 Sodium 134.0 L Potassium 3.4 L Chloride 105 Carbon Dioxide 24 Anion Gap 5 BUN 8 Creatinine 0.66 0.64 Est GFR ( Amer) > 60 > 60 Est GFR (Non-Af Amer) > 60 > 60 Glucose 100 Calcium 8.4 06/09/18 16:17 Buttocks - Left Side Abscess Gram Stain - Final 06/09/18 16:26 Coccyx - Abscess Gram Stain - Final 06/09/18 16:26 Coccyx - Abscess Wound Culture - Final Mrsa (Meth Resis Staph Aureus) Prevotella Species Anaerococcus (Peptostrep) Sp. 06/09/18 13:00 Swenson Catheter Urine Culture - Final NO GROWTH 2 DAYS Impressions: Pelvis X-Ray 06/09/18 10:59 IMPRESSION: No acute radiographic abnormality. Status: Imported from PACS Assessment and Plan - Diagnosis (1) Sepsis Qualifiers: Sepsis type: sepsis due to unspecified organism Qualified Code(s): A41.9 - Sepsis, unspecified organism Is this a current diagnosis for this admission?: Yes Plan: Improved; T-max 103.1 in the last 48 hours, other vital signs acceptable Patient presents with sepsis, due to sacral decubitus wound with surrounding cellulitis (likely MRSA or Pseudomonas given patient's previous wound culture history), present on admission, and evidenced by acute encephalopathy (oriented, but confused, repetitive, and forgetful), with leukocytosis, tachycardia, and fever. Patient meets sepsis 2 criteria. Patient was taken directly to the OR prior to admission orders placed; he did receive generous IV fluids during the intraoperative period (5L in first 24 hrs) Lactic acid 1.5. Blood cultures are negative at 24 hours. Empirically covered with IV Zosyn and vancomycin (suspected Pseudomonas and MRSA); waiting for C&S Surgery is consulted; appreciate their assistance. (2) HLD (hyperlipidemia) Is this a current diagnosis for this admission?: Yes Plan: Cardiac diet, statin therapy. (3) HTN (hypertension) Is this a current diagnosis for this admission?: Yes Plan: Patient reports a history of hypertension; systolic blood pressures now 118-135 Cardiac diet IV hydralazine as needed for blood pressure control. Will resume home anti-HTN medications now that he is no longer hypotensive (4) Sacral decubitus ulcer Qualifiers: Pressure injury stage: unstageable Qualified Code(s): L89.150 - Pressure ulcer of sacral region, unstageable Is this a current diagnosis for this admission?: Yes Plan: Now POD#2 surgical debridement. Left lateral unstageable sacral decubitus ulcer present on arrival. Surgery is consulted. Wound is extensive and bordering against the rectum. He may require colostomy. Wound care per surgery's direction. Cultures and antibiotics as above. (5) Acute encephalopathy Is this a current diagnosis for this admission?: Yes Plan: Resolved (6) Contusion of right hip Qualifiers: Encounter type: initial encounter Qualified Code(s): S70.01XA - Contusion of right hip, initial encounter Is this a current diagnosis for this admission?: Yes Plan: Secondary to fall at home. Turn/reposition every 2 hours. Analgesics as needed. Physical therapy consultation. (7) History of CVA (cerebrovascular accident) Is this a current diagnosis for this admission?: Yes Plan: Patient reports history of CVA events with mild left upper extremity residual weakness. We will resume the patient's daily aspirin and Plavix therapy once cleared by Surgery (plans for possible additional debridement and/or colostomy). Continue statin therapy. Resume home anti-HTN Cardiac diet. - Time Time Spent with patient: 15-24 minutes Medications reviewed and adjusted accordingly: Yes Anticipated discharge: Home with Homehealth Within: Other - when medically cleared - Inpatient Certification Based on my medical assessment, after consideration of the patient's comorbidities, presenting symptoms, or acuity I expect that the services needed warrant INPATIENT care.: Yes I certify that my determination is in accordance with my understanding of Medicare's requirements for reasonable and necessary INPATIENT services [42 CFR 412.3e].: Yes Medical Necessity: Risk of Complication if Not Cared For in Hospital
[2018-06-12] MEDS: VANCOMYCIN HCL 1,000 MG in DEXTROSE 5%-WATER 250 ML IV SCH ×3 (05:54→23:29)
[2018-06-12] MEDS: GABAPENTIN 300 MG CAPSULE PO SCH ×3 (07:06→22:25)
[2018-06-12] MEDS: HEPARIN SOD (PORCINE) 5,000 UNIT/ML 1 ML SYRINGE SUBCUT SCH ×3 (07:06→22:32)
[2018-06-12 07:10] LABS: HEMATOCRIT 29.5 % (37.9-51.0); MEAN CORPUSCULAR HEMOGLOBIN 30.4 pg (27.0-33.4); MEAN CORPUSCULAR HGB CONC 34.1 g/dL (32.0-36.0); MEAN CORPUSCULAR VOLUME 89 fl (80-97); PLATELET COUNT 406 10^3/uL (150-450); RED BLOOD COUNT 3.31 10^6/uL (4.35-5.55); RED CELL DISTRIBUTION WIDTH 14.6 % (11.5-14.0); WHITE BLOOD COUNT 11.7 10^3/uL (4.0-10.5)
[2018-06-12 07:19] LABS: ALANINE AMINOTRANSFERASE 27 U/L (21-72); ALBUMIN 2.6 g/dL (3.5-5.0); ALKALINE PHOSPHATASE 81 U/L (38-126); ANION GAP 7 (5-19); ASPARTATE AMINO TRANSFERASE 20 U/L (17-59); BILIRUBIN,DIRECT 0.3 mg/dL (0.0-0.4); BILIRUBIN,TOTAL 0.4 mg/dL (0.2-1.3); BLOOD UREA NITROGEN 6 mg/dL (7-20); CALCIUM 8.4 mg/dL (8.4-10.2); CARBON DIOXIDE 27 mmol/L (22-30); CHLORIDE 104 mmol/L (98-107); GLUCOSE 103 mg/dL (75-110); PHOSPHORUS 3.5 mg/dL (2.5-4.5); POTASSIUM 3.5 mmol/L (3.6-5.0); SODIUM 138.1 mmol/L (137-145); TOTAL PROTEIN 5.3 g/dL (6.3-8.2)
[2018-06-12] MEDS ORDERED: LIDOCAINE 2% INJ-PF (20 MG/ML) 2 ML AMPUL ONE (10:38)
[2018-06-12] MEDS: DOCUSATE SODIUM 100 MG/10 ML UDC PO SCH ×2 (11:50→17:07)
[2018-06-12] MEDS: ASPIRIN 81 MG TABLET, CHEWABLE PO SCH (11:50)
[2018-06-12] MEDS: FAMOTIDINE INJ/PF 20 MG/2 ML SDV IV SCH ×2 (11:50→22:24)
[2018-06-12] MEDS: LOSARTAN POTASSIUM 50 MG TABLET PO SCH (11:55)
[2018-06-12] MEDS: TAMSULOSIN HCL 0.4 MG CAP.SR.24H PO SCH (11:55)
[2018-06-12] MEDS: CLOPIDOGREL BISULFATE 75 MG TABLET PO SCH (11:55)
[2018-06-12] MEDS: METOPROLOL TARTRATE 50 MG TABLET PO SCH ×2 (11:55→22:25)
[2018-06-12] MEDS: NICOTINE 14 MG/24 HR PATCH.TD24 TD SCH (15:35)
[2018-06-12] MEDS: MORPHINE SULFATE 10 MG/ML INJ IV PRN ×2 (15:58→23:29)
[2018-06-12] MEDS ORDERED: FENTANYL CITRATE INJ/PF 100 MCG/2 ML AMPUL ONE (16:57)
[2018-06-12] MEDS ORDERED: HYDROMORPHONE HCL INJ/PF 2 MG/ML AMPULE ONE (16:57)
[2018-06-12] MEDS ORDERED: ACETAMINOPHEN 0 MG/0 ML RTUPB IV ONE (16:58)
[2018-06-12] MEDS ORDERED: MIDAZOLAM 2 MG/2 ML INJ ONE (16:58)
[2018-06-12] MEDS ORDERED: PROPOFOL INJ 200 MG/20 ML VIAL IV ONE (16:58)
[2018-06-12] MEDS ORDERED: LIDOCAINE 1% INJ-PF (10 MG/ML) 30 ML SDV ONE (17:07)
[2018-06-12] MEDS ORDERED: KETAMINE HCL INJ 500 MG/10 ML VIAL ONE (19:30)
[2018-06-12] MEDS ORDERED: FENTANYL CITRATE INJ/PF 100 MCG/2 ML AMPUL IV PRN ×3 (20:26)
[2018-06-12] MEDS ORDERED: PROMETHAZINE HCL INJ 25 MG/1 ML VIAL IV PRN (20:26)
[2018-06-12] MEDS ORDERED: DIPHENHYDRAMINE HCL 50 MG/ML VIAL IV PRN (20:26)
--- NOTE | 2018-06-12 21:54 | OPERATIVE REPORT E ---
Operative Report NAME: MIRYAM GOFF : 1955 AGE: 63Y DATE OF SURGERY: 06/12/2018 ROOM: 404 PREOPERATIVE DIAGNOSIS: MORE NECROTIC AREAS AND FOUL-SMELLING DISCHARGE FROM THE ORIGINAL INCISION AND DEBRIDEMENT SITE IN THE LEFT PARACOCCYGEAL AND PERIANAL AREAS. POSTOPERATIVE DIAGNOSIS: MORE NECROTIC AREAS AND FOUL-SMELLING DISCHARGE FROM THE ORIGINAL INCISION AND DEBRIDEMENT SITE IN THE LEFT PARACOCCYGEAL AND PERIANAL AREAS. OPERATION: FURTHER DEBRIDEMENT AND PULSE LAVAGE OF LEFT PARACOCCYGEAL AND PERIANAL INCISION AND DRAINAGE SITE. SIZE OF THE NEW WOUND IS ABOUT 21 CM LONG X 5.5 CM WIDE WITH THE MID PART GOING INTO THE AREA OF THE SUPRALEVATOR MUSCLE ABOUT 8 CM DOWN CLOSE TO THE RECTAL AREA AND ROUGHLY ABOUT 2 CM WIDE. SURGEON: PHILLY GONZALEZ M.D. ANESTHESIA: Local. INDICATION: This is a 63-year-old male who initially had debridement of abscess along the left paracoccygeal and perianal area about 3 days ago. The patient has been falling on this side for the past few days. The initial size of the wound was about 12 cm long x 5 cm wide with deep cavity going to the levator muscle about 8 cm deep. At this time, the patient has a lot more necrotic tissue going cephalad and also purulent material going distally toward the perianal area. This area was incised and a lot of purulent material with some thick exudate was removed. Hemostasis obtained with cautery. PROCEDURE: Anesthesia was infiltrated along the necrotic areas using about 60 mL of 0.5% Xylocaine. The necrotic area was then excised sharply down to subcutaneous area, actually going also to the fascial area. Hemostasis was then obtained with cautery. The cavity in the mid part going to the levator muscle was noted to have a small amount of purulent material. Cultures again obtained. The cavity was then pulse lavaged with at least 2 liters of saline. Further hemostasis obtained with cautery. Following this, the deep narrowed cavity was packed with Iodoform gauze 1/2 inch and also the whole external area close to the rectum was also packed with part of the 1/2 inch Iodoform gauze, and another bottle of 1/4 inch Iodoform gauze. Sterile 4 x 4 and ABD pad were used to dress the wound. It appears at this time the patient needs definitely a diverting colostomy to allow healing of this large wound, which now measures about 21 cm long x 5.5 cm wide x persistent 8 cm deep cavity going through the levator muscle about 8 cm deep. The patient tolerated the procedure well. Needle, instrument, and sponge count were all correct. Estimated blood loss is about 50 mL. The patient was then brought to the recovery room in satisfactory condition. DICTATING PHYSICIAN: PHILLY GONZALEZ M.D. [id number] PHY#: [id number] ID: [id number] JOB#: [id number] ACCT: [id number] cc:PHILLY GONZALEZ M.D. > MTDD
[2018-06-12] MEDS: AMITRIPTYLINE HCL 25 MG TABLET PO SCH (22:25)
[2018-06-12] MEDS: ATORVASTATIN CALCIUM 20 MG TABLET PO SCH (22:25)
[2018-06-13] MEDS: NORMAL SALINE 1000 ML 1,000 ML IV PRN ×2 (01:13→11:04)
[2018-06-13] MEDS: PIPERACILLIN SODIUM/TAZOBACTAM 3.375 GM in NORMAL SALINE 100 ML IV SCH (02:13)
--- NOTE | 2018-06-13 05:12 | PDOC PROGRESS REPORT ---
Subjective Progress Note for:: 06/12/18 Subjective:: MIRYAM GOFF is a 63 year old male with a past medical history of multiple CVAs, on dual antiplatelet therapy, hypertension, hyperlipidemia, COPD, left AKA secondary to PAD, tobacco dependence with continuous use, and chronic pain on opiate medications who was admitted 06/09/18 sepsis secondary to sacral decubitus ulcer and surrounding cellulitis. The patient was seen this afternoon on rounds. He is resting comfortably in bed. The patient denies any complaints. Nursing denies any concerns. Plan for OR today for wound debridement. Reason For Visit: SACRAL DECUBITUS ULCER,CELLULITIS Physical Exam Vital Signs: Temp Pulse Resp BP Pulse Ox 99.0 F 93 18 140/73 H 93 06/13/18 02:30 06/13/18 02:30 06/13/18 02:30 06/13/18 02:30 06/13/18 02:30 Intake & Output 06/11/18 06/12/18 06/13/18 06:59 06:59 06:59 Intake Total 2700 3388 4350 Output Total 375 1300 3300 Balance 2325 2088 1050 Weight 81 kg 81 kg General appearance: PRESENT: well-developed, well-nourished Eye exam: PRESENT: conjunctiva pink, PERRLA Mouth exam: PRESENT: moist, tongue midline Neck exam: PRESENT: full ROM Respiratory exam: PRESENT: clear to auscultation kami, symmetrical, unlabored Cardiovascular exam: PRESENT: RRR Pulses: PRESENT: normal radial pulses GI/Abdominal exam: PRESENT: soft. ABSENT: distended, tenderness Rectal exam: PRESENT: deferred Extremities exam: ABSENT: full ROM Musculoskeletal exam: PRESENT: deformity - L AKA. ABSENT: ambulatory - USES WHEELCHAIR FOR MOBILITY Neurological exam: PRESENT: alert, awake, oriented to person, oriented to place, oriented to time, oriented to situation Psychiatric exam: PRESENT: appropriate affect Skin exam: PRESENT: dry, intact, other - UNSTAGABLE SACRAL PRESSURE ULCER Results Laboratory Results: 06/12/18 06:00 06/12/18 06:00 06/12/18 06/12/18 06:00 06:00 WBC 11.7 H RBC 3.31 L Hgb 10.0 L Hct 29.5 L MCV 89 MCH 30.4 MCHC 34.1 RDW 14.6 H Plt Count 406 Sodium 138.1 Potassium 3.5 L Chloride 104 Carbon Dioxide 27 Anion Gap 7 BUN 6 L Creatinine 0.74 Est GFR ( Amer) > 60 Est GFR (Non-Af Amer) > 60 Glucose 103 Calcium 8.4 Phosphorus 3.5 Magnesium 2.0 Total Bilirubin 0.4 AST 20 ALT 27 Alkaline Phosphatase 81 Total Protein 5.3 L Albumin 2.6 L 06/09/18 16:17 Buttocks - Left Side Abscess Gram Stain - Final 06/09/18 16:17 Buttocks - Left Side Abscess Wound Culture - Final Mrsa (Meth Resis Staph Aureus) Proteus Mirabilis Prevotella Species Anaerococcus (Peptostrep) Sp. Impressions: Pelvis X-Ray 06/09/18 10:59 IMPRESSION: No acute radiographic abnormality. Status: Imported from PACS Assessment and Plan - Diagnosis (1) Sepsis Qualifiers: Sepsis type: sepsis due to unspecified organism Qualified Code(s): A41.9 - Sepsis, unspecified organism Is this a current diagnosis for this admission?: Yes Plan: Improved Patient presents with sepsis, due to sacral decubitus wound with surrounding cellulitis (likely MRSA or Pseudomonas given patient's previous wound culture history), present on admission, and evidenced by acute encephalopathy (oriented, but confused, repetitive, and forgetful), with leukocytosis, tachycardia, and fever. Patient meets sepsis 2 criteria. Patient was taken directly to the OR prior to admission orders placed; he did receive generous IV fluids during the intraoperative period (5L in first 24 hrs) Lactic acid 1.5. Blood cultures are negative at 24 hours. Initially covered with IV Zosyn and vancomycin, buttocks wound culture (+) for MRSA and proteus. Will d/c Zosyn and switch to cefepime. Coccyx wound culture (+) MRSA Surgery is consulted; appreciate their assistance. (2) HLD (hyperlipidemia) Is this a current diagnosis for this admission?: Yes Plan: Cardiac diet, statin therapy. (3) HTN (hypertension) Is this a current diagnosis for this admission?: Yes Plan: Patient reports a history of hypertension; systolic blood pressures now 118-135 Cardiac diet IV hydralazine as needed for blood pressure control. Will resume home anti-HTN medications now that he is no longer hypotensive (4) Sacral decubitus ulcer Qualifiers: Pressure injury stage: unstageable Qualified Code(s): L89.150 - Pressure ulcer of sacral region, unstageable Is this a current diagnosis for this admission?: Yes Plan: Now POD#3 surgical debridement, plan to go to OR today for another debridement. Left lateral unstageable sacral decubitus ulcer present on arrival. Surgery is consulted. Wound is extensive and bordering against the rectum. He may require colostomy. Wound care per surgery's direction. Cultures and antibiotics as above. (5) Acute encephalopathy Is this a current diagnosis for this admission?: Yes Plan: Resolved (6) Contusion of right hip Qualifiers: Encounter type: initial encounter Qualified Code(s): S70.01XA - Contusion of right hip, initial encounter Is this a current diagnosis for this admission?: Yes Plan: Secondary to fall at home. Turn/reposition every 2 hours. Analgesics as needed. Physical therapy consultation. (7) History of CVA (cerebrovascular accident) Is this a current diagnosis for this admission?: Yes Plan: Patient reports history of CVA events with mild left upper extremity residual weakness. We will resume the patient's daily aspirin and Plavix therapy once cleared by Surgery (plans for possible additional debridementS and/or colostomy). Continue statin therapy. Resume home anti-HTN Cardiac diet. - Time Time Spent with patient: 15-24 minutes Medications reviewed and adjusted accordingly: Yes Anticipated discharge: Home with Homehealth - Inpatient Certification Based on my medical assessment, after consideration of the patient's comorbidities, presenting symptoms, or acuity I expect that the services needed warrant INPATIENT care.: Yes I certify that my determination is in accordance with my understanding of Medicare's requirements for reasonable and necessary INPATIENT services [42 CFR 412.3e].: Yes Medical Necessity: Need for IV Antibiotics
[2018-06-13] MEDS: GABAPENTIN 300 MG CAPSULE PO SCH ×3 (05:34→21:56)
[2018-06-13] MEDS: VANCOMYCIN HCL 1,000 MG in DEXTROSE 5%-WATER 250 ML IV SCH ×3 (05:35→21:57)
[2018-06-13] MEDS ORDERED: CEFEPIME 2 GM/D5W RTU 2 GM/50 ML RTUPB IV SCH ×2 (06:00→10:00)
[2018-06-13] MEDS: HEPARIN SOD (PORCINE) 5,000 UNIT/ML 1 ML SYRINGE SUBCUT SCH ×3 (06:09→21:58)
[2018-06-13] MEDS: CLOPIDOGREL BISULFATE 75 MG TABLET PO SCH (09:38)
[2018-06-13] MEDS: TAMSULOSIN HCL 0.4 MG CAP.SR.24H PO SCH (09:39)
[2018-06-13] MEDS: METOPROLOL TARTRATE 50 MG TABLET PO SCH ×2 (09:39→21:56)
[2018-06-13] MEDS: ASPIRIN 81 MG TABLET, CHEWABLE PO SCH (09:39)
[2018-06-13] MEDS: LOSARTAN POTASSIUM 50 MG TABLET PO SCH (09:39)
[2018-06-13] MEDS: NICOTINE 14 MG/24 HR PATCH.TD24 TD SCH (09:39)
[2018-06-13] MEDS: MORPHINE SULFATE 10 MG/ML INJ IV PRN (09:40)
[2018-06-13] MEDS: DOCUSATE SODIUM 100 MG/10 ML UDC PO SCH ×3 (09:41→19:03)
[2018-06-13] MEDS: FAMOTIDINE INJ/PF 20 MG/2 ML SDV IV SCH ×2 (09:41→21:58)
[2018-06-13] MEDS: CEFEPIME HCL 2 GM in DEXTROSE 5%-WATER 50 ML IV SCH (09:50)
[2018-06-13] MEDS: OXYCODONE HCL IR 5 MG TABLET PO PRN ×2 (13:17→19:06)
[2018-06-13] MEDS ORDERED: POLYETHYLENE GLYCOL 3350 POWDER 17 GM/1 PACKET PO ONE ×2 (19:00→21:45)
[2018-06-13] MEDS: AMITRIPTYLINE HCL 25 MG TABLET PO SCH (21:56)
[2018-06-13] MEDS: ATORVASTATIN CALCIUM 20 MG TABLET PO SCH (21:56)
[2018-06-14] MEDS: CEFEPIME HCL 2 GM in DEXTROSE 5%-WATER 50 ML IV SCH ×2 (00:44→10:45)
[2018-06-14] MEDS: GABAPENTIN 300 MG CAPSULE PO SCH ×3 (06:04→22:47)
[2018-06-14] MEDS: HEPARIN SOD (PORCINE) 5,000 UNIT/ML 1 ML SYRINGE SUBCUT SCH ×2 (06:04→14:00)
[2018-06-14] MEDS: VANCOMYCIN HCL 1,000 MG in DEXTROSE 5%-WATER 250 ML IV SCH ×2 (06:08→14:00)
[2018-06-14] MEDS: NORMAL SALINE 1000 ML 1,000 ML IV PRN (06:09)
[2018-06-14 06:32] LABS: HEMATOCRIT 27.2 % (37.9-51.0); HEMOGLOBIN 9.4 g/dL (13.5-17.0); MEAN CORPUSCULAR HEMOGLOBIN 30.5 pg (27.0-33.4); MEAN CORPUSCULAR HGB CONC 34.5 g/dL (32.0-36.0); MEAN CORPUSCULAR VOLUME 89 fl (80-97); PLATELET COUNT 411 10^3/uL (150-450); RED BLOOD COUNT 3.07 10^6/uL (4.35-5.55); RED CELL DISTRIBUTION WIDTH 14.4 % (11.5-14.0); WHITE BLOOD COUNT 9.8 10^3/uL (4.0-10.5)
[2018-06-14 06:57] LABS: ALANINE AMINOTRANSFERASE 20 U/L (21-72); ALBUMIN 2.3 g/dL (3.5-5.0); ALKALINE PHOSPHATASE 59 U/L (38-126); ANION GAP 6 (5-19); ASPARTATE AMINO TRANSFERASE 19 U/L (17-59); BILIRUBIN,DIRECT 0.2 mg/dL (0.0-0.4); BILIRUBIN,TOTAL 0.3 mg/dL (0.2-1.3); BLOOD UREA NITROGEN 7 mg/dL (7-20); CALCIUM 8.3 mg/dL (8.4-10.2); CARBON DIOXIDE 26 mmol/L (22-30); CHLORIDE 105 mmol/L (98-107); GLUCOSE 103 mg/dL (75-110); POTASSIUM 3.2 mmol/L (3.6-5.0); SODIUM 136.8 mmol/L (137-145); TOTAL PROTEIN 4.9 g/dL (6.3-8.2)
[2018-06-14] MEDS: METOPROLOL TARTRATE 50 MG TABLET PO SCH ×2 (10:00→22:47)
[2018-06-14] MEDS: DOCUSATE SODIUM 100 MG/10 ML UDC PO SCH ×2 (10:00→19:59)
[2018-06-14] MEDS: LOSARTAN POTASSIUM 50 MG TABLET PO SCH (10:00)
[2018-06-14] MEDS: ASPIRIN 81 MG TABLET, CHEWABLE PO SCH (10:00)
[2018-06-14] MEDS: TAMSULOSIN HCL 0.4 MG CAP.SR.24H PO SCH (10:00)
[2018-06-14] MEDS: MORPHINE SULFATE 10 MG/ML INJ IV PRN (11:42)
[2018-06-14] MEDS ORDERED: DEXAMETHASONE SOD PHOSPHATE INJ 4 MG/1 ML VIAL ONE (14:16)
[2018-06-14] MEDS ORDERED: SUCCINYLCHOLINE CHLORIDE INJ 200 MG/10 ML VIAL ONE (14:16)
[2018-06-14] MEDS ORDERED: NEOSTIGMINE METHYLSULFATE 10 MG/10 ML VIAL ONE (14:16)
[2018-06-14] MEDS ORDERED: LIDOCAINE 2% INJ-PF (20 MG/ML) 2 ML AMPUL ONE (14:16)
[2018-06-14] MEDS ORDERED: ROCURONIUM BROMIDE INJ 50 MG/5 ML VIAL IV ONE (14:16)
[2018-06-14] MEDS ORDERED: KETOROLAC TROMETHAMINE 60 MG/2 ML SDV ONE (14:16)
[2018-06-14] MEDS ORDERED: GLYCOPYRROLATE 1 MG/5 ML SYRINGE ONE (14:16)
[2018-06-14] MEDS ORDERED: ONDANSETRON HCL INJ/PF 4 MG/2 ML SDV ONE (14:16)
[2018-06-14] MEDS: FAMOTIDINE INJ/PF 20 MG/2 ML SDV IV SCH ×2 (15:20→22:48)
[2018-06-14] MEDS: NICOTINE 14 MG/24 HR PATCH.TD24 TD SCH (15:21)
[2018-06-14] MEDS: POTASSI CL 20 MEQ/50 ML RIDER 20 MEQ/50 ML RTUPB IV SCH (15:22)
[2018-06-14] MEDS ORDERED: MIDAZOLAM 2 MG/2 ML INJ ONE (16:46)
[2018-06-14] MEDS ORDERED: FENTANYL CITRATE INJ/PF 100 MCG/2 ML AMPUL ONE (16:46)
[2018-06-14] MEDS ORDERED: HYDROMORPHONE HCL INJ/PF 2 MG/ML AMPULE ONE (16:46)
[2018-06-14] MEDS ORDERED: PROPOFOL INJ 200 MG/20 ML VIAL IV ONE (16:47)
[2018-06-14] MEDS ORDERED: ACETAMINOPHEN 1,000 MG/100 ML RTUPB IV ONE (16:47)
[2018-06-14] MEDS ORDERED: BUPIVACAINE HCL 0.5%-EPI 1:200000 INJ/PF 30 ML VIAL ONE (16:52)
[2018-06-14] MEDS ORDERED: ALBUMIN HUMAN 25.0 GM/100 ML RTUINJ IV ONE (16:55)
[2018-06-14] MEDS ORDERED: DIPHENHYDRAMINE HCL 50 MG/ML VIAL IV PRN (18:33)
[2018-06-14] MEDS ORDERED: MEPERIDINE HCL/PF INJ 25 MG/1 ML DISP.SYRIN IV PRN (18:33)
[2018-06-14] MEDS ORDERED: PROMETHAZINE HCL INJ 25 MG/1 ML VIAL IV PRN ×2 (18:33)
[2018-06-14] MEDS ORDERED: FENTANYL CITRATE INJ/PF 100 MCG/2 ML AMPUL IV PRN ×3 (18:33)
[2018-06-14] MEDS ORDERED: OXYCODONE-ACETAMINOPHEN 5-325 MG TABLET PO PRN ×2 (18:33)
[2018-06-14] MEDS ORDERED: ONDANSETRON HCL INJ/PF 4 MG/2 ML SDV IV PRN (18:33)
--- NOTE | 2018-06-14 19:13 | Operative Report ---
Nonrecallable Operative Report DATE OF SURGERY: 06/14/18 PREOPERATIVE DIAGNOSIS: sacral decubuti ulcers POSTOPERATIVE DIAGNOSIS: sacral decubuti ulcers OPERATION: laparoscopic assisted decending loop colostomy ANESTHESIA: GA COMPLICATIONS: none ESTIMATED BLOOD LOSS: 10cc INTRAOPERATIVE FINDINGS: see dictation PROCEDURE: see dictation
[2018-06-14] MEDS: CLOPIDOGREL BISULFATE 75 MG TABLET PO SCH (19:57)
[2018-06-14] MEDS: OXYCODONE HCL IR 5 MG TABLET PO PRN (20:58)
[2018-06-14] MEDS: ALBUMIN HUMAN 12.5 GM/50 ML RTUINJ IV SCH ×2 (21:01→22:48)
--- NOTE | 2018-06-14 21:30 | OPERATIVE REPORT E ---
Operative Report NAME: MIRYAM GOFF : 1955 AGE: 63Y DATE OF SURGERY: 06/14/2018 ROOM: 404 PREOPERATIVE DIAGNOSIS: SACRAL DECUBITI. POSTOPERATIVE DIAGNOSIS: SACRAL DECUBITI. OPERATIVE PROCEDURE: Laparoscopic assisted diverting colostomy. SURGEON: KEREN SAUCEDO M.D. INDICATIONS FOR OPERATION: This is a 63-year-old male who is admitted to the hospital for severe sacral decubiti. He has undergone a number of debridements and they are extending down towards his rectum. He continues to stool and cause difficulty with healing and dressing changes and, therefore, he is being scheduled for this diverting colostomy. PROCEDURE IN DETAIL: The patient brought to the operating room in awake, alert, and stable condition and placed on the operating room table supine position, induced under general anesthesia, intubated. The abdomen was prepped and draped in the usual sterile manner for the procedure. After appropriate timeout and site verification a Veress needle was placed in to the umbilicus and the abdomen was insufflated with 6 liters of CO2 gas. An infraumbilical 10 mm incision was made with a 10 blade and a 10 mm port placed in the abdominal cavity. Intraabdominal visualization revealed no evidence of a Veress needle or trocar injury. Two right-sided 5 mm ports were placed under direct vision. We identified the transverse colon, the splenic flexure, descending colon, and sigmoid colon. The descending colon was chosen for point for colostomy. The peritoneal reflection was taken down along the white line of Toldt using the LigaSure device, being careful not to injury ureteral structures. Once the mobilization was complete and the descending colon easily came up to the anterior abdominal wall a point was picked on the left anterior abdominal wall, lateral to the umbilicus, and just above it. A circular incision was made with the cautery to remove the section of about 2 cm diameter skin segment. We carried our dissection down to the rectus fascia that was open in a stellate fashion. The rectus muscle was divided bluntly. The descending colon was easily pulled through the defect. It was then fixed to the skin circumferentially, serosa to skin with 3-0 Vicryl sutures. A bridge was then placed underneath through the loop of bowel, through the mesentery, and fixed to the skin with 3-0 Nylon. The stoma was then matured by opening it longitudinally and fixing it to the skin edge with interrupted placed 3-0 Vicryl sutures creating a dual lumen diverting colostomy. Once this was done we looked again laparoscopically and noted that were was no twist to the colon. We then closed the umbilical port site with 0 Vicryl and then closed the skin incisions with intracuticular 4-0 Caprosyn. Steri-Strips were placed and then a sterile colostomy appliance was then placed on top of the stoma, which completed the procedure. Estimated blood loss was less than 25 mL. Sponge and needle counts were correct x2. The patient was awakened in the operating room, extubated, and transferred to recovery in stable condition. No complications. DICTATING PHYSICIAN: KEREN SAUCEDO M.D. [id number] Y#: [id number] ID: [id number] JOB#: [id number] ACCT: [id number] cc:KEREN SAUCEDO M.D. >
[2018-06-14] MEDS: AMITRIPTYLINE HCL 25 MG TABLET PO SCH (22:48)
[2018-06-14] MEDS: ATORVASTATIN CALCIUM 20 MG TABLET PO SCH (22:48)
[2018-06-15] MEDS: OXYCODONE-ACETAMINOPHEN 5-325 MG TABLET PO PRN ×3 (00:12→17:37)
[2018-06-15] MEDS: VANCOMYCIN HCL 1,000 MG in DEXTROSE 5%-WATER 250 ML IV SCH ×4 (00:15→21:33)
[2018-06-15] MEDS: HEPARIN SOD (PORCINE) 5,000 UNIT/ML 1 ML SYRINGE SUBCUT SCH ×4 (01:12→21:33)
[2018-06-15] MEDS: GABAPENTIN 300 MG CAPSULE PO SCH ×3 (05:28→21:34)
[2018-06-15] MEDS: OXYCODONE HCL IR 5 MG TABLET PO PRN ×3 (05:28→19:57)
--- NOTE | 2018-06-15 05:30 | PDOC PROGRESS REPORT ---
Addendum entered and electronically signed by ELBA ADAN NP 06/15/18 05:34: Provider Note Provider Note: LATE ENTRY: THIS IS PROGRESS NOTE FOR 06/14/2018 Original Note: Subjective Progress Note for:: 06/15/18 Subjective:: MIRYAM GOFF is a 63 year old male with a past medical history of multiple CVAs, on dual antiplatelet therapy, hypertension, hyperlipidemia, COPD, left AKA secondary to PAD, tobacco dependence with continuous use, and chronic pain on opiate medications who was admitted 06/09/18 sepsis secondary to sacral decubitus ulcer and surrounding cellulitis. The patient was seen this afternoon on rounds. He is resting comfortably in bed. The patient is asking when he will go to surgery (plan is for tonight around 1800). Nursing denies any concerns. Plan for OR today for colostomy. Reason For Visit: SACRAL DECUBITUS ULCER,CELLULITIS Physical Exam Vital Signs: Temp Pulse Resp BP Pulse Ox 98.1 F 76 15 149/79 H 100 06/15/18 04:00 06/15/18 04:00 06/15/18 04:00 06/15/18 04:00 06/15/18 04:00 Intake & Output 06/13/18 06/14/18 06/15/18 06:59 06:59 06:59 Intake Total 4670 3017 1500 Output Total 4156 2956 1795 Balance 520 -884 -749 Weight 81.3 kg 80.6 kg 81.9 kg General appearance: PRESENT: obese Eye exam: PRESENT: conjunctiva pink, PERRLA Mouth exam: PRESENT: moist, tongue midline Neck exam: PRESENT: full ROM Respiratory exam: PRESENT: clear to auscultation kami, symmetrical, unlabored Cardiovascular exam: PRESENT: RRR Pulses: PRESENT: normal radial pulses Vascular exam: PRESENT: pallor GI/Abdominal exam: PRESENT: normal bowel sounds, soft. ABSENT: tenderness Rectal exam: PRESENT: deferred Extremities exam: PRESENT: full ROM - RLE only. L AKA Musculoskeletal exam: PRESENT: deformity - L AKA. ABSENT: ambulatory - wheelchair Neurological exam: PRESENT: alert, awake, oriented to person, oriented to place, oriented to time, oriented to situation Psychiatric exam: PRESENT: appropriate affect Skin exam: PRESENT: dry, intact, other - unstagable sacral decubitus ulcer Results Laboratory Results: 06/14/18 05:10 04/19/19 05:10 06/14/18 06/14/18 06/14/18 05:10 05:10 09:57 WBC 9.8 RBC 3.07 L Hgb 9.4 L Hct 27.2 L MCV 89 MCH 30.5 MCHC 34.5 RDW 14.4 H Plt Count 411 Sodium 136.8 L Potassium 3.2 L Chloride 105 Carbon Dioxide 26 Anion Gap 6 BUN 7 Creatinine 0.83 Est GFR ( Amer) > 60 Est GFR (Non-Af Amer) > 60 Glucose 103 Calcium 8.3 L Total Bilirubin 0.3 AST 19 ALT 20 L Alkaline Phosphatase 59 Total Protein 4.9 L Albumin 2.3 L Blood Type A POSITIVE Antibody Screen NEGATIVE 06/09/18 15:31 Blood Blood Culture - Final NO GROWTH IN 5 DAYS 06/09/18 11:05 Blood Blood Culture - Final NO GROWTH IN 5 DAYS Impressions: Pelvis X-Ray 06/09/18 10:59 IMPRESSION: No acute radiographic abnormality. Status: Imported from PACS Assessment and Plan - Diagnosis (1) Sepsis Qualifiers: Sepsis type: sepsis due to unspecified organism Qualified Code(s): A41.9 - Sepsis, unspecified organism Is this a current diagnosis for this admission?: Yes Plan: Improved Patient presents with sepsis, due to sacral decubitus wound with surrounding cellulitis (likely MRSA or Pseudomonas given patient's previous wound culture history), present on admission, and evidenced by acute encephalopathy (oriented, but confused, repetitive, and forgetful), with leukocytosis, tachycardia, and fever. Patient meets sepsis 2 criteria. Patient was taken directly to the OR prior to admission orders placed; he did receive generous IV fluids during the intraoperative period (5L in first 24 hrs) Lactic acid 1.5. Blood cultures are negative at 24 hours. Initially covered with IV Zosyn and vancomycin, buttocks wound culture (+) for MRSA and proteus. Will d/c Zosyn and switch to cefepime. Coccyx wound culture (+) MRSA Surgery is consulted; appreciate their assistance. Will consult ID regarding duration of antibiotic treatment (2) HLD (hyperlipidemia) Is this a current diagnosis for this admission?: Yes Plan: Cardiac diet, statin therapy. (3) HTN (hypertension) Is this a current diagnosis for this admission?: Yes Plan: Patient reports a history of hypertension; systolic blood pressures now 118-135 Cardiac diet IV hydralazine as needed for blood pressure control. Will resume home anti-HTN medications now that he is no longer hypotensive (4) Sacral decubitus ulcer Qualifiers: Pressure injury stage: unstageable Qualified Code(s): L89.150 - Pressure ulcer of sacral region, unstageable Is this a current diagnosis for this admission?: Yes Plan: Now POD#1 surgical debridement, plan to go to OR today for colostomy. Left lateral unstageable sacral decubitus ulcer present on arrival. Surgery is consulted. Wound is extensive and bordering against the rectum. Plan for temporary colostomy Wound care per surgery's direction. Cultures and antibiotics as above. (5) Acute encephalopathy Is this a current diagnosis for this admission?: Yes Plan: Resolved (6) Contusion of right hip Qualifiers: Encounter type: initial encounter Qualified Code(s): S70.01XA - Contusion of right hip, initial encounter Is this a current diagnosis for this admission?: Yes Plan: Secondary to fall at home. Turn/reposition every 2 hours. Analgesics as needed. Physical therapy consultation. (7) History of CVA (cerebrovascular accident) Is this a current diagnosis for this admission?: Yes Plan: Patient reports history of CVA events with mild left upper extremity residual weakness. We will resume the patient's daily aspirin and Plavix therapy once cleared by Surgery (plans for possible additional debridementS and/or colostomy). Continue statin therapy. Resume home anti-HTN Cardiac diet. - Time Time Spent with patient: 15-24 minutes Medications reviewed and adjusted accordingly: Yes Anticipated discharge: Home - Inpatient Certification Based on my medical assessment, after consideration of the patient's comorbidities, presenting symptoms, or acuity I expect that the services needed warrant INPATIENT care.: Yes I certify that my determination is in accordance with my understanding of Medicare's requirements for reasonable and necessary INPATIENT services [42 CFR 412.3e].: Yes Medical Necessity: Risk of Complication if Not Cared For in Hospital
[2018-06-15] MEDS: CEFEPIME HCL 2 GM in DEXTROSE 5%-WATER 50 ML IV SCH ×3 (05:42→21:33)
[2018-06-15] MEDS: POTASSI CL 20 MEQ/50 ML RIDER 20 MEQ/50 ML RTUPB IV SCH (07:36)
[2018-06-15] MEDS: FAMOTIDINE INJ/PF 20 MG/2 ML SDV IV SCH ×2 (10:39→21:34)
[2018-06-15] MEDS: DOCUSATE SODIUM 100 MG/10 ML UDC PO SCH ×3 (10:39→17:41)
[2018-06-15] MEDS: METOPROLOL TARTRATE 50 MG TABLET PO SCH ×2 (10:41→21:34)
[2018-06-15] MEDS: CLOPIDOGREL BISULFATE 75 MG TABLET PO SCH (10:41)
[2018-06-15] MEDS: TAMSULOSIN HCL 0.4 MG CAP.SR.24H PO SCH (10:41)
[2018-06-15] MEDS: NICOTINE 14 MG/24 HR PATCH.TD24 TD SCH (10:41)
[2018-06-15] MEDS: ASPIRIN 81 MG TABLET, CHEWABLE PO SCH (10:42)
[2018-06-15] MEDS: LOSARTAN POTASSIUM 50 MG TABLET PO SCH (10:42)
--- NOTE | 2018-06-15 11:39 | PDOC PROGRESS REPORT ---
Subjective Reason For Visit: SACRAL DECUBITUS ULCER,CELLULITIS Physical Exam Vital Signs: Temp Pulse Resp BP Pulse Ox 97.6 F 78 16 130/77 H 100 06/15/18 08:00 06/15/18 08:00 06/15/18 08:00 06/15/18 08:00 06/15/18 08:00 Intake & Output 06/14/18 06/15/18 06/16/18 06:59 06:59 06:59 Intake Total 3017 2493 Output Total 3376 2095 Balance -358 398 Weight 80.6 kg 81.9 kg Results Laboratory Results: 06/14/18 05:10 06/14/18 05:10 06/09/18 15:31 Blood Blood Culture - Final NO GROWTH IN 5 DAYS 06/09/18 11:05 Blood Blood Culture - Final NO GROWTH IN 5 DAYS Impressions: Pelvis X-Ray 06/09/18 10:59 IMPRESSION: No acute radiographic abnormality. Assessment & Plan - Plan Summary Plan Summary: This is a 63-year-old male with a large pressure ulcer to the left buttock. The wound is much mold sheet cleaner today than previously. There is still some fibrinous slough in the base. The patient is status post diverting left lower quadrant colostomy. His ostomy is pink with a small amount of air in the colostomy bag. The patient is currently on a liquid diet, and tolerating it well. Awaiting bowel function before advancing to regular diet. Will change dressing orders to include Santyl applications daily. Minimize pressure on the wound as much as is feasible. Protein supplementation when appropriate. Will follow.
[2018-06-15] MEDS: NORMAL SALINE 1000 ML 1,000 ML IV PRN (18:46)
[2018-06-15] MEDS: ATORVASTATIN CALCIUM 20 MG TABLET PO SCH (21:34)
[2018-06-15] MEDS: AMITRIPTYLINE HCL 25 MG TABLET PO SCH (21:34)
[2018-06-16] MEDS: OXYCODONE-ACETAMINOPHEN 5-325 MG TABLET PO PRN ×4 (00:19→23:33)
[2018-06-16] MEDS: OXYCODONE HCL IR 5 MG TABLET PO PRN ×2 (02:24→11:11)
[2018-06-16] MEDS: GABAPENTIN 300 MG CAPSULE PO SCH ×3 (05:55→21:19)
[2018-06-16] MEDS: VANCOMYCIN HCL 1,000 MG in DEXTROSE 5%-WATER 250 ML IV SCH (05:55)
[2018-06-16] MEDS: HEPARIN SOD (PORCINE) 5,000 UNIT/ML 1 ML SYRINGE SUBCUT SCH ×3 (05:56→21:18)
[2018-06-16] MEDS: NORMAL SALINE 1000 ML 1,000 ML IV PRN ×2 (05:56→17:36)
--- NOTE | 2018-06-16 06:03 | PDOC PROGRESS REPORT ---
Addendum entered and electronically signed by ELBA ADAN NP 06/16/18 06:03: Provider Note Provider Note: LATE ENTRY: THIS IS PROGRESS NOTE FOR 06/15/2018 Original Note: Subjective Progress Note for:: 06/15/18 Subjective:: MIRYAM GOFF is a 63 year old male with a past medical history of multiple CVAs, on dual antiplatelet therapy, hypertension, hyperlipidemia, COPD, left AKA secondary to PAD, tobacco dependence with continuous use, and chronic pain on opiate medications who was admitted 06/09/18 sepsis secondary to sacral decubitus ulcer and surrounding cellulitis. Pod#1 laparoscopic assisted decending loop colostomy. The patient was seen this morning on rounds. He is resting comfortably in bed. He is asking to go outside to "get some vitamin D." Informed the patient he could go accompanied by a staff member. Patient has no complaints regarding his colostomy. No stool present at the time of assessment. Staff/patient have no concerns or questions. Reason For Visit: SACRAL DECUBITUS ULCER,CELLULITIS Physical Exam Vital Signs: Temp Pulse Resp BP Pulse Ox 98.0 F 75 16 127/66 H 100 06/15/18 20:00 06/16/18 02:00 06/15/18 20:00 06/15/18 20:00 06/15/18 20:00 Intake & Output 06/14/18 06/15/18 06/16/18 06:59 06:59 06:59 Intake Total 3017 3493 2380 Output Total 3375 2095 650 Balance -358 1398 1730 Weight 80.6 kg 81.9 kg General appearance: PRESENT: well-developed, well-nourished Eye exam: PRESENT: conjunctiva pink, PERRLA Mouth exam: PRESENT: moist, tongue midline Neck exam: PRESENT: full ROM Respiratory exam: PRESENT: clear to auscultation kami, symmetrical, unlabored Cardiovascular exam: PRESENT: RRR Pulses: PRESENT: normal radial pulses, normal dorsalis pedis pul Vascular exam: PRESENT: normal capillary refill GI/Abdominal exam: PRESENT: soft, other - new colostomy present. stoma appears pink/round/healthy tissue. ABSENT: tenderness Rectal exam: PRESENT: deferred Extremities exam: PRESENT: full ROM - RLE only Musculoskeletal exam: PRESENT: full ROM - rle only. ABSENT: ambulatory - uses wheelchair for mobility Neurological exam: PRESENT: alert, awake, oriented to person, oriented to place, oriented to time, oriented to situation Psychiatric exam: PRESENT: appropriate affect Skin exam: PRESENT: dry, intact Results Laboratory Results: 06/14/18 05:10 06/14/18 05:10 Impressions: Pelvis X-Ray 06/09/18 10:59 IMPRESSION: No acute radiographic abnormality. Status: Imported from PACS Assessment and Plan - Diagnosis (1) Sepsis Qualifiers: Sepsis type: sepsis due to unspecified organism Qualified Code(s): A41.9 - Sepsis, unspecified organism Is this a current diagnosis for this admission?: Yes Plan: Improved Patient presents with sepsis, due to sacral decubitus wound with surrounding cellulitis (likely MRSA or Pseudomonas given patient's previous wound culture history), present on admission, and evidenced by acute encephalopathy (oriented, but confused, repetitive, and forgetful), with leukocytosis, tachycardia, and fever. Patient meets sepsis 2 criteria. Patient was taken directly to the OR prior to admission orders placed; he did receive generous IV fluids during the intraoperative period (5L in first 24 hrs) Lactic acid 1.5. Blood cultures are negative at 24 hours. Initially covered with IV Zosyn and vancomycin, buttocks wound culture (+) for MRSA and proteus. Will d/c Zosyn and switch to cefepime. Coccyx wound culture (+) MRSA Surgery is consulted; appreciate their assistance. Will consult ID regarding duration of antibiotic treatment (2) HLD (hyperlipidemia) Is this a current diagnosis for this admission?: Yes Plan: Cardiac diet, statin therapy. (3) HTN (hypertension) Is this a current diagnosis for this admission?: Yes Plan: Patient reports a history of hypertension; systolic blood pressures now 118-135 Cardiac diet IV hydralazine as needed for blood pressure control. Will resume home anti-HTN medications now that he is no longer hypotensive (4) Sacral decubitus ulcer Qualifiers: Pressure injury stage: unstageable Qualified Code(s): L89.150 - Pressure ulcer of sacral region, unstageable Is this a current diagnosis for this admission?: Yes Plan: Now post-op surgical debridement Left lateral unstageable sacral decubitus ulcer present on arrival. Surgery is consulted. Wound is extensive and bordering against the rectum. Plan for temporary colostomy Wound care per surgery's direction. Cultures and antibiotics as above. (5) Acute encephalopathy Is this a current diagnosis for this admission?: Yes Plan: Resolved (6) Contusion of right hip Qualifiers: Encounter type: initial encounter Qualified Code(s): S70.01XA - Contusion of right hip, initial encounter Is this a current diagnosis for this admission?: Yes Plan: Secondary to fall at home. Turn/reposition every 2 hours. Analgesics as needed. Physical therapy consultation. (7) History of CVA (cerebrovascular accident) Is this a current diagnosis for this admission?: Yes Plan: Patient reports history of CVA events with mild left upper extremity residual weakness. We will resume the patient's daily aspirin and Plavix therapy once cleared by Surgery (plans for possible additional debridementS and/or colostomy). Continue statin therapy. Resume home anti-HTN Cardiac diet. - Time Time Spent with patient: 15-24 minutes Medications reviewed and adjusted accordingly: Yes Anticipated discharge: Home, Home with Homehealth Within: within 48 hours - Inpatient Certification Based on my medical assessment, after consideration of the patient's cassie rbidities, presenting symptoms, or acuity I expect that the services needed warrant INPATIENT care.: Yes I certify that my determination is in accordance with my understanding of Medicare's requirements for reasonable and necessary INPATIENT services [42 CFR 412.3e].: Yes Medical Necessity: Risk of Complication if Not Cared For in Hospital
[2018-06-16 07:38] LABS: VANCOMYCIN,TROUGH 28.8 ug/mL (5.0-20.0)
--- NOTE | 2018-06-16 10:49 | PDOC PROGRESS REPORT ---
Subjective Reason For Visit: SACRAL DECUBITUS ULCER,CELLULITIS Physical Exam Vital Signs: Temp Pulse Resp BP Pulse Ox 97.5 F 74 18 121/70 97 06/16/18 07:58 06/16/18 07:58 06/16/18 07:58 06/16/18 07:58 06/16/18 07:58 Intake & Output 06/15/18 06/16/18 06/17/18 06:59 06:59 06:59 Intake Total 3493 3380 250 Output Total 2095 1550 Balance 1398 1830 250 Weight 81.9 kg 82.1 kg Results Laboratory Results: 06/14/18 05:10 06/16/18 05:53 06/16/18 05:53 Creatinine 0.89 Est GFR ( Amer) > 60 Est GFR (Non-Af Amer) > 60 Impressions: Pelvis X-Ray 06/09/18 10:59 IMPRESSION: No acute radiographic abnormality. Assessment & Plan - Plan Summary Plan Summary: This is a 63-year-old male with a large pressure ulcer to the left buttock. The wound is stable. The patient is status post diverting left lower quadrant colostomy. His ostomy is pink and productive. Regular diet. Santyl with Dressing changes, daily. Minimize pressure on the wound as much as is feasible. Protein supplementation. Will follow.
[2018-06-16] MEDS: DOCUSATE SODIUM 100 MG/10 ML UDC PO SCH ×2 (11:05→17:37)
[2018-06-16] MEDS: LOSARTAN POTASSIUM 50 MG TABLET PO SCH (11:05)
[2018-06-16] MEDS: CLOPIDOGREL BISULFATE 75 MG TABLET PO SCH (11:05)
[2018-06-16] MEDS: TAMSULOSIN HCL 0.4 MG CAP.SR.24H PO SCH (11:06)
[2018-06-16] MEDS: FAMOTIDINE INJ/PF 20 MG/2 ML SDV IV SCH ×2 (11:06→21:18)
[2018-06-16] MEDS: METOPROLOL TARTRATE 50 MG TABLET PO SCH ×2 (11:06→21:19)
[2018-06-16] MEDS: ASPIRIN 81 MG TABLET, CHEWABLE PO SCH (11:06)
[2018-06-16] MEDS: CEFEPIME HCL 2 GM in DEXTROSE 5%-WATER 50 ML IV SCH ×2 (11:06→21:18)
[2018-06-16] MEDS: NICOTINE 14 MG/24 HR PATCH.TD24 TD SCH (11:06)
[2018-06-16] MEDS: COLLAGENASE CLOSTRIDIUM HIST. OINT 30 GM TP SCH (11:12)
[2018-06-16] MEDS ORDERED: OXYCODONE HCL IR 5 MG TABLET PO ONE (17:30)
[2018-06-16] MEDS: ATORVASTATIN CALCIUM 20 MG TABLET PO SCH (21:19)
[2018-06-16] MEDS: AMITRIPTYLINE HCL 25 MG TABLET PO SCH (21:19)
[2018-06-16] MEDS: VANCOMYCIN HCL 750 MG in DEXTROSE 5%-WATER 250 ML IV SCH (21:25)
[2018-06-17] MEDS: GABAPENTIN 300 MG CAPSULE PO SCH ×2 (05:42→13:46)
[2018-06-17] MEDS: HEPARIN SOD (PORCINE) 5,000 UNIT/ML 1 ML SYRINGE SUBCUT SCH ×2 (05:42→13:46)
[2018-06-17] MEDS: NORMAL SALINE 1000 ML 1,000 ML IV PRN (05:44)
[2018-06-17] MEDS: CEFEPIME HCL 2 GM in DEXTROSE 5%-WATER 50 ML IV SCH (09:08)
[2018-06-17] MEDS: DOCUSATE SODIUM 100 MG/10 ML UDC PO SCH (09:08)
[2018-06-17] MEDS: TAMSULOSIN HCL 0.4 MG CAP.SR.24H PO SCH (09:09)
[2018-06-17] MEDS: LOSARTAN POTASSIUM 50 MG TABLET PO SCH (09:09)
[2018-06-17] MEDS: FAMOTIDINE INJ/PF 20 MG/2 ML SDV IV SCH (09:09)
[2018-06-17] MEDS: ASPIRIN 81 MG TABLET, CHEWABLE PO SCH (09:09)
[2018-06-17] MEDS: CLOPIDOGREL BISULFATE 75 MG TABLET PO SCH (09:09)
[2018-06-17] MEDS: METOPROLOL TARTRATE 50 MG TABLET PO SCH (09:09)
[2018-06-17] MEDS: OXYCODONE-ACETAMINOPHEN 5-325 MG TABLET PO PRN ×2 (09:09→16:08)
[2018-06-17] MEDS: NICOTINE 14 MG/24 HR PATCH.TD24 TD SCH (09:10)
[2018-06-17] MEDS: COLLAGENASE CLOSTRIDIUM HIST. OINT 30 GM TP SCH (09:16)
[2018-06-17] MEDS: VANCOMYCIN HCL 750 MG in DEXTROSE 5%-WATER 250 ML IV SCH (11:48)
--- NOTE | 2018-06-17 14:19 | Progress Note ---
Provider Note Provider Note: ID Consult- I reviewed the patient's chart, including the operative note and the microbiology cultures. The patient has had an I&D of a large abscess of the buttocks with Stage IV decubitus ulcer. Cultures done at the time of the surgical debridement were positive for several organisms, including MRSA, Proteus, Prevotella, and Streptococcus anginosus. The patient appears to be clinically responding. The WBC was elevated, and is now normal. He has been treated with vancomycin and Zosyn; the Zosyn was recently changed to cefepime. The duration of antibiotics will depend on whether or not there is felt to be bone involvement. This is a stage IV decubitus ulcer, which may or may not involve bone. If there is bone involvement, then the patient should be treated for 6 weeks. I would recommend treating with the combination of vancomycin (for MRSA), ceftriaxone 2 gm daily (for Strep and Proteus), and metronidazole 500 mg IV q 12 hours (for Prevotella). An oral alternative, if the patient is to be discharged soon, is TMP-SMX (Bactrim DS) 2 tabs BID (for MRSA) and Augmentin 500 mg TID (for Strep, Proteus, and Prevotella). If there is not bone involvement, then the duration of antibiotics could be much shorter (10 days) as long as there has been adequate debridement of the infected tissue. Demario Godwin MD Pager: [phone]
[2018-06-17 17:20] VITALS: BP 147/79
--- NOTE | 2018-07-04 08:56 | PDOC DISCHARGE SUMMARY ---
General - Admit/Disc Date/PCP Admission Date/Primary Care Provider: 06/09/18 13:15 Discharge Date: 06/17/18 - Discharge Diagnosis (1) Sepsis Is this a current diagnosis for this admission?: Yes (2) HLD (hyperlipidemia) Is this a current diagnosis for this admission?: Yes (3) HTN (hypertension) Is this a current diagnosis for this admission?: Yes (4) Sacral decubitus ulcer Is this a current diagnosis for this admission?: Yes (5) Acute encephalopathy Is this a current diagnosis for this admission?: Yes (6) Contusion of right hip Is this a current diagnosis for this admission?: Yes (7) History of CVA (cerebrovascular accident) Is this a current diagnosis for this admission?: Yes - Additional Information Resuscitation Status: Full Code Discharge Diet: As Tolerated Discharge Activity: Activity As Tolerated Prescriptions: Amox Tr/Potassium Clavulanate [Augmentin 500-125 Tablet] 1 tab PO Q8 #30 tablet Collagenase Clostridium Hist. [Santyl Ointment 30 gm] 1 applic TP DAILY #1 tube Sulfamethoxazole/Trimethoprim [Bactrim Ds Tablet] 2 each PO BID #20 tablet Home Medications: Amitriptyline HCl [Elavil 25 mg Tablet] 25 mg PO QHS 06/10/18 Baclofen [Baclofen 10 mg Tablet] 10 mg PO Q12 06/10/18 Clopidogrel Bisulfate [Plavix 75 mg Tablet] 75 mg PO DAILY 06/10/18 Ezetimibe [Zetia 10 mg Tablet] 10 mg PO DAILY 06/10/18 Gabapentin [Neurontin 300 mg Capsule] 300 mg PO Q8 06/10/18 Hydroxyzine HCl [Atarax 10 mg Tablet] 10 mg PO TIDP PRN 06/10/18 Losartan Potassium [Cozaar 50 mg Tablet] 100 mg PO DAILY 06/10/18 Metoprolol Tartrate [Lopressor 50 mg Tablet] 50 mg PO Q12 06/10/18 Nicotine [Nicoderm 21 mg/24 Hr Transderm Patch] 1 patch TD DAILY 06/10/18 Coxsackie-3 Fatty Acids/Fish Oil [Fish Oil 1,000 mg Capsule] 2,000 mg PO BID 06/10/18 Oxycodone HCl [Oxy-Ir 5 mg Tablet] 2.5 mg PO Q12HP PRN 06/10/18 Sildenafil Citrate [Viagra] 100 mg PO ASDIR PRN 06/10/18 Tamsulosin HCl [Flomax 0.4 mg Cap.sr] 0.4 mg PO DAILY 06/10/18 Amox Tr/Potassium Clavulanate [Augmentin 500-125 Tablet] 1 tab PO Q8 #30 tablet 06/17/18 Collagenase Clostridium Hist. [Santyl Ointment 30 gm] 1 applic TP DAILY #1 tube 06/17/18 Sulfamethoxazole/Trimethoprim [Bactrim Ds Tablet] 2 each PO BID #20 tablet 06/17/18 History of Present Illness History of Present Illness: MIRYAM GOFF is a 63 year old male with a past medical history of multiple CVAs, on dual antiplatelet therapy, hypertension, hyperlipidemia, COPD, left AKA secondary to PAD, tobacco dependence with continuous use, and chronic pain on opiate medications who presents to the emergency department after multiple falls at home resulting in right hip pain and a left lateral unstageable sacral decubitus wound. Evaluation in the emergency department revealed a low-grade temperature (100.1), tachycardia (120), leukocytosis (WBCs 25.1), unremarkable chemistry, and normal lactic acid. Surgical services were consulted; Dr. Cox plans to take the patient to the OR today for debridement and requested the hospitalist service to admit and manage chronic medical conditions. Hospital Course Hospital Course: MIRYAM GOFF is a 63 year old male with a past medical history of multiple CVAs, on dual antiplatelet therapy, hypertension, hyperlipidemia, COPD, left AKA secondary to PAD, tobacco dependence with continuous use, and chronic pain on opiate medications who was admitted 06/09/18 sepsis secondary to sacral decubitus ulcer and surrounding cellulitis. The patient was placed on broad spectrum antibiotics and underwent a perianal wound debridement with Dr. Cox of general surgery on 06/12/2018. Necrotic tissue was removed from the wound, which ended up positive (+) for MRSA. ID was consulted and Dr. Godwin ([facility]) recommended vancomycin, Rocephin and Flagyl for a total of 10 days. There was concern about the proximity of the wound to the anus, and the impact on wound healing if stool was entering the wound every time the patient had a bowel movement. Surgery recommenced a temporary colostomy. Dr Weir of general surgery took the patient to the OR on 06/14/2018 for a laparoscopic assisted decending loop colostomy. Within 48 hours the patient was producing stool in the colostomy bag. The patient provided a great deal of colostomy care instruction from the nursing staff, additionally, he was scheduled for a follow up appointment at the [facility]. Per ID recommendations, the patient completed his antibiotic regimen as an outpatient. He was provided prescriptions for Bactrim and Augmentin. Physical Exam Vital Signs: Temp Pulse Resp BP Pulse Ox 98.0 F 93 18 147/79 H 98 06/17/18 17:18 06/17/18 17:18 06/17/18 17:18 06/17/18 17:18 06/17/18 17:18 General appearance: PRESENT: obese, well-developed, well-nourished Head exam: PRESENT: atraumatic Eye exam: PRESENT: conjunctiva pink, PERRLA Mouth exam: PRESENT: moist Teeth exam: PRESENT: poor dentation Neck exam: PRESENT: full ROM Respiratory exam: PRESENT: clear to auscultation kami, symmetrical, unlabored Cardiovascular exam: PRESENT: RRR Pulses: PRESENT: normal radial pulses Vascular exam: PRESENT: normal capillary refill GI/Abdominal exam: PRESENT: soft. ABSENT: distended, normal bowel sounds - BOWEL MOVEMENTS VIA COLOSTOMY, tenderness Rectal exam: ABSENT: black stool, bloody stool Extremities exam: PRESENT: full ROM. ABSENT: pedal edema Musculoskeletal exam: PRESENT: deformity - L AKA, full ROM. ABSENT: ambulatory - WHEELCHAIR Neurological exam: PRESENT: alert, awake, oriented to person, oriented to place, oriented to time, oriented to situation Psychiatric exam: PRESENT: normal mood Skin exam: PRESENT: dry. ABSENT: intact - PERIANAL DECUB. PRESSURE ULCER - PRE SENT PRIOR TO ADMISSION Results Laboratory Results: 06/14/18 05:10 06/16/18 05:53 Impressions: Pelvis X-Ray 06/09/18 10:59 IMPRESSION: No acute radiographic abnormality. Status: Imported from PACS Qualifiers - * PATIENT BEING DISCHARGED WITH ANY OF THE FOLLOWING DIAGNOSIS: No Acute Heart Failure Is this a Heart Failure Patient?: Yes Plan Discharge Plan: COMPLETE ANTIBIOTIC REGIMEN. FOLLOW UP CLOSELY WITH [facility]. Time Spent: Greater than 30 Minutes
== END 2018-06-17 18:03 | disposition home health service (06) | DRG 853 ==
LOC: ER 10:41 → EH 13:15 → 4N 19:05
PROVIDERS: ADMIT Internal Medicine; ATTEND Internal Medicine
PROC: 0KBP0ZZ Excision of Left Hip Muscle, Open Approach (ICD-10-PCS; 2018-06-09)
PROC: 3E0F73Z Introduction of Anti-inflammatory into Respiratory Tract, Via Natural or Artificial Opening (ICD-10-PCS; 2018-06-10)
PROC: 0KDP0ZZ Extraction of Left Hip Muscle, Open Approach (ICD-10-PCS; 2018-06-12)
PROC: 0D1M4Z4 Bypass Descending Colon to Cutaneous, Percutaneous Endoscopic Approach (ICD-10-PCS; principal; 2018-06-14 10:30)
DX: A41.9 Sepsis, unspecified organism (principal); L89.154 Pressure ulcer of sacral region, stage 4; G93.41 Metabolic encephalopathy; L03.317 Cellulitis of buttock; I10 Essential (primary) hypertension; E78.5 Hyperlipidemia, unspecified; E11.9 Type 2 diabetes mellitus without complications; G89.29 Other chronic pain; R29.6 Repeated falls; J44.9 Chronic obstructive pulmonary disease, unspecified; E66.9 Obesity, unspecified; F43.10 Post-traumatic stress disorder, unspecified; S70.01XA Contusion of right hip, initial encounter; W18.30XA Fall on same level, unspecified, initial encounter; B95.62 Methicillin resistant Staphylococcus aureus infection as the cause of diseases classified elsewhere; B96.4 Proteus (mirabilis) (morganii) as the cause of diseases classified elsewhere; F17.210 Nicotine dependence, cigarettes, uncomplicated; Y92.009 Unspecified place in unspecified non-institutional (private) residence as the place of occurrence of the external cause; Z86.73 Personal history of transient ischemic attack (TIA), and cerebral infarction without residual deficits; Z89.612 Acquired absence of left leg above knee; Z79.899 Other long term (current) drug therapy; Z79.02 Long term (current) use of antithrombotics/antiplatelets; Z79.82 Long term (current) use of aspirin
CPT/HCPCS: 00300; 00840; 01120; 36415; 72170; 80048; 80053; 80202; 81001; 82565; 83605; 83735; 84100; 85025; 85027; 86850; 86900; 86901; 87040; 87070; 87075; 87077; 87086; 87186; 87205; 93005; 93010; 99285; A6266; J0131; J0330; J0360; J0692; J1100; J1170; J1644; J1885; J2250; J2270; J2405; J2543; J2704; J2710; J3010; J3370; J3480; J3490; J7030; J7050; J7060; P9047; S0028

== ENCOUNTER 2018-06-23 09:53 | Emergency (ER) | payer OTHER ==
--- NOTE | 2018-06-23 10:47 | ER Document Report ---
ED General - General Chief Complaint: Nausea/Vomiting Stated Complaint: NAUSEA,VOMITING Time Seen by Provider: 06/23/18 10:24 Primary Care Provider: MITESH,ALEE [Primary Care Provider] - Follow up as needed Mode of Arrival: Medic Information source: Patient, Emergency Med Personnel, PENDING SALE TO [facility] Records Notes: This 63-year-old male patient brought to the emergency room by EMS with chief complaint of "I'm hurting everywhere". Patient was admitted to the hospital on 06/09/2018 after suffering several falls. He does have a left AKA, but normally gets around quite well. He was found to have an infected left perianal and lateral coccygeal abscess that was debrided in the operating room on 06/09/2018. He subsequently had a diverting colostomy done on 06/14/2018. He was discharged home on 06/17/2018. He states that he began having his pain everywhere on 06/21/2018. He states that he does have oxycodone at home that he takes for his pain. He states in the hospital his pain was better controlled. His back medications has a Percocet bottle that was filled on 05/21/2018 with 30 tablets, it is empty. Reviewing pharmacy records shows that he did fill a prescription for 30 Percocet tablets on 08/19/2018. He reports that he has not had a bowel movement through his colostomy in the past 3 days. He is having some liquid or serous type fluid draining. He also reports she vomited 2 times last night. He is quite vague about his symptoms. TRAVEL OUTSIDE OF THE [place] IN LAST 30 DAYS: No - Related Data Allergies/Adverse Reactions: No Known Allergies Allergy (Verified 03/19/18 11:59) Past Medical History - General Information source: Patient, Emergency Med Personnel, PENDING SALE TO [facility] Records - Social History Smoking Status: Current Every Day Smoker Cigarette use (# per day): Yes Chew tobacco use (# tins/day): No Smoking Education Provided: No Frequency of alcohol use: None Drug Abuse: Marijuana Occupation: Disabled Lives with: Friend Family History: Reviewed & Not Pertinent - Past Medical History Cardiac Medical History: Reports: Hx Hypercholesterolemia, Hx Hypertension Pulmonary Medical History: Reports: Hx COPD Neurological Medical History: Reports: Hx Cerebrovascular Accident - x 4 Psychiatric Medical History: Reports: Hx Depression, Hx Post Traumatic Stress Disorder Past Surgical History: Reports: Hx Bowel Diversion - Diverting colostomy on 06/14/2018, Hx Carotid Endarterectomy - Bilateral, Hx Orthopedic Surgery - left shoulder, left leg amputation, Hx Vascular Surgery - Left femoral endarterectomy with left external iliac angioplasty and stent. - Immunizations Hx Diphtheria, Pertussis, Tetanus Vaccination: Yes Review of Systems - Review of Systems Constitutional: Other - Pain all over EENT: No symptoms reported Cardiovascular: No symptoms reported Respiratory: No symptoms reported Gastrointestinal: See HPI Genitourinary: Other - Patient has a Swenson catheter Musculoskeletal: Back pain Skin: Other - Sacral decubitus ulcers Hematologic/Lymphatic: No symptoms reported Neurological/Psychological: Depression Physical Exam - Vital signs Vitals: Resp Pulse Ox 15 93 06/23/18 09:58 06/23/18 09:58 Interpretation: Normal - General General appearance: Alert In distress: None - HEENT Head: Normocephalic, Atraumatic Eyes: Normal Pupils: PERRL - Respiratory Respiratory status: No respiratory distress Chest status: Nontender Breath sounds: Normal - Cardiovascular Rhythm: Regular Heart sounds: Normal auscultation Murmur: No - Abdominal Inspection: Other - Left lower quadrant colostomy Distension: No distension Bowel sounds: Normal - Back Back: Other - Intact bandages over the sacral and perianal decubitus regions - Extremities General upper extremity: Normal inspection General lower extremity: Other - Left AKA - Neurological Neuro grossly intact: Yes - Psychological Associated symptoms: Depressed - Skin Skin Temperature: Warm Skin Moisture: Dry Skin Color: Normal Course - Re-evaluation Re-evalutation: 06/23/18 12:42 The patient's lab work does not suggest an acute infectious process. The abdominal x-rays do not show any obstruction or other suggestion of abnormality. The patient's chief complaint is pain everywhere which he admits is a chronic problem, and he takes Percocet for this. I was eventually able to determine that the reason he came to the emergency room was because his home health nurse suggested it thinking he might have a bowel obstruction. 06/23/18 12:47 I did explain to the patient that his lab work was unremarkable, and that his x- rays did not show any obstruction, or ileus. He seems happy with this, and daniela gray states that the reason he is here is because his home health nurse requested he come to be checked. He states that he does have pain medication at home. He states that he can take a taxicab back to the house. 06/23/18 13:02 Patient's blood pressure was elevated when he came in and remained elevated during his stay. It was also elevated when he was discharged from the hospital a few days ago. He did not take his blood pressure medication today. He is encouraged to take his medication when he gets home. He has not vomited since he has been here, he has been drinking water. He has not been given any antiemetics here in the emergency room. - Vital Signs Vital signs: Temp Pulse Resp BP Pulse Ox 98.8 F 22 H 186/96 H 93 06/23/18 12:54 06/23/18 12:03 06/23/18 12:03 06/23/18 12:03 - Laboratory Result Diagrams: 06/23/18 10:35 06/23/18 10:35 Laboratory results interpreted by me: 06/23/18 06/23/18 06/23/18 10:35 10:35 11:30 WBC 11.0 H RBC 3.89 L Hgb 11.6 L Hct 33.7 L Plt Count 561 H Seg Neutrophils % 90.3 H Lymphocytes % 5.1 L Absolute Neutrophils 9.9 H Chloride 96 L Glucose 121 H Creatine Kinase 24 L Urine Protein 30 H Urine Blood SMALL H Ur Leukocyte Esterase SMALL H - Diagnostic Test Radiology reviewed: Image reviewed, Reports reviewed - Acute abdominal series does not show any acute abnormalities. Discharge - Discharge Clinical Impression: Generalized pain, Colostomy in place Decubitus ulcers Qualifiers: Pressure injury location: buttock Pressure injury stage: unspecified pressure injury stage Laterality: left Qualified Code(s): L89.329 - Pressure ulcer of left buttock, unspecified stage Condition: Stable Disposition: HOME, SELF-CARE Additional Instructions: Your evaluation today did not show any signs of a new infectious problem. There is no sign of bowel obstruction. You should continue your regular medications. Follow-up with your doctor this week if any problems. RETURN TO THE EMERGENCY ROOM IF ANY NEW OR WORSENING SYMPTOMS. Referrals: [facility] [Primary Care Provider] - Follow up as needed
--- NOTE | 2018-06-23 11:18 | RADIOLOGY REPORT (SQ) ---
EXAM DESCRIPTION: ACUTE ABDOMEN SERIES COMPLETED DATE/TIME: 06/23/2018 11:07 am REASON FOR STUDY: Colostomy 06/14/2018, c/o N V COMPARISON: None. NUMBER OF VIEWS: Three views. TECHNIQUE: Frontal chest, supine abdomen and upright/decubitus abdomen radiographic images acquired. LIMITATIONS: None. FINDINGS: CHEST: Lungs clear of infiltrates. FREE AIR: None. No abnormal gas collections. BOWEL GAS PATTERN: Nonobstructive pattern. No dilated loops or air fluid levels. CALCIFICATIONS: No suspicious calcifications. HARDWARE: Ostomy in the left side. Left iliac stent. SOFT TISSUES: No gross mass or suggestion of organomegaly. BONES: No acute fracture. Degenerative changes in the spine. No worrisome bone lesions. OTHER: No other significant finding. IMPRESSION: NO RADIOGRAPHIC EVIDENCE FOR ACUTE ABDOMINAL DISEASE. TECHNICAL DOCUMENTATION: JOB ID: [id number] [employer]- All Rights Reserved Reading location - IP/workstation name: [email or web address]
[2018-06-23 11:19] LABS: ABSOLUTE EOSINOPHILS # (AUTO) 0.1 10^3/uL (0.0-0.6); ABSOLUTE LYMPHOCYTES (AUTO) 0.6 10^3/uL (0.5-4.7); ABSOLUTE MONOCYTES (AUTO) 0.4 10^3/uL (0.1-1.4); ABSOLUTE NEUT (AUTO) 9.9 10^3/uL (1.7-8.2); BASOPHILS % (AUTO) 0.2 % (0-2); EOSINOPHILS % (AUTO) 0.8 % (0-6); HEMATOCRIT 33.7 % (37.9-51.0); HEMOGLOBIN 11.6 g/dL (13.5-17.0); LYMPHOCYTES % (AUTO) 5.1 % (13-45); MEAN CORPUSCULAR HEMOGLOBIN 29.9 pg (27.0-33.4); MEAN CORPUSCULAR HGB CONC 34.4 g/dL (32.0-36.0); MEAN CORPUSCULAR VOLUME 87 fl (80-97); MONOCYTES % (AUTO) 3.6 % (3-13); PLATELET COUNT 561 10^3/uL (150-450); RED BLOOD COUNT 3.89 10^6/uL (4.35-5.55); SEGMENTED NEUTROPHILS % (AUTO) 90.3 % (42-78); TOTAL CELLS COUNTED % (AUTO) 100 %
[2018-06-23 11:32] LABS: ALANINE AMINOTRANSFERASE 43 U/L (21-72); ALBUMIN 3.5 g/dL (3.5-5.0); ALKALINE PHOSPHATASE 87 U/L (38-126); ANION GAP 14 (5-19); ASPARTATE AMINO TRANSFERASE 42 U/L (17-59); BILIRUBIN,DIRECT 0.4 mg/dL (0.0-0.4); BILIRUBIN,TOTAL 0.8 mg/dL (0.2-1.3); BLOOD UREA NITROGEN 9 mg/dL (7-20); CALCIUM 9.5 mg/dL (8.4-10.2); CARBON DIOXIDE 30 mmol/L (22-30); CHLORIDE 96 mmol/L (98-107); CREATINE KINASE 24 U/L (55-170); GLUCOSE 121 mg/dL (75-110); POTASSIUM 4.7 mmol/L (3.6-5.0); SODIUM 139.9 mmol/L (137-145); TOTAL PROTEIN 7.1 g/dL (6.3-8.2)
[2018-06-23 11:57] LABS: APPEARANCE,URINE SLIGHTLY-CLOUDY; BILIRUBIN,URINE NEGATIVE (NEGATIVE); COLOR,URINE YELLOW; GLUCOSE, URINE NEGATIVE (NEGATIVE); KETONES,URINE NEGATIVE (NEGATIVE); LEUKOCYTE ESTERASE,URINE SMALL (NEGATIVE); NITRITE,URINE NEGATIVE (NEGATIVE); PROTEIN,URINE 30 mg/dL (NEGATIVE); URINE SPECIFIC GRAVITY 1.013; UROBILINOGEN,URINE NEGATIVE mg/dL (<2.0)
[2018-06-23] MEDS ORDERED: OXYCODONE-ACETAMINOPHEN 5-325 MG TABLET PO ONE (12:45)
[2018-06-23 13:05] VITALS: BP 170/107
== END 2018-06-23 13:07 | disposition home or self-care (01) ==
LOC: ER 09:53
DX: M79.10 Myalgia, unspecified site (principal); Z93.3 Colostomy status; L89.329 Pressure ulcer of left buttock, unspecified stage; R11.2 Nausea with vomiting, unspecified; W19.XXXA Unspecified fall, initial encounter; Z89.612 Acquired absence of left leg above knee; Z98.890 Other specified postprocedural states; Z79.899 Other long term (current) drug therapy; F17.210 Nicotine dependence, cigarettes, uncomplicated; I10 Essential (primary) hypertension; J44.9 Chronic obstructive pulmonary disease, unspecified
CPT/HCPCS: 36415; 74022; 80053; 81001; 82550; 83605; 84484; 85025; 87040; 99284

== ENCOUNTER 2018-07-03 14:55 | Emergency (ER) | payer OTHER ==
[2018-07-03 16:43] LABS: ABSOLUTE BASOPHILS # (AUTO) 0.1 10^3/uL (0.0-0.2); ABSOLUTE EOSINOPHILS # (AUTO) 0.4 10^3/uL (0.0-0.6); ABSOLUTE LYMPHOCYTES (AUTO) 1.5 10^3/uL (0.5-4.7); ABSOLUTE MONOCYTES (AUTO) 0.7 10^3/uL (0.1-1.4); ABSOLUTE NEUT (AUTO) 6.6 10^3/uL (1.7-8.2); BASOPHILS % (AUTO) 0.6 % (0-2); EOSINOPHILS % (AUTO) 4.2 % (0-6); HEMATOCRIT 34.9 % (37.9-51.0); HEMOGLOBIN 11.8 g/dL (13.5-17.0); LYMPHOCYTES % (AUTO) 16.1 % (13-45); MEAN CORPUSCULAR HEMOGLOBIN 28.5 pg (27.0-33.4); MEAN CORPUSCULAR HGB CONC 33.7 g/dL (32.0-36.0); MEAN CORPUSCULAR VOLUME 85 fl (80-97); MONOCYTES % (AUTO) 7.6 % (3-13); PLATELET COUNT 545 10^3/uL (150-450); RED BLOOD COUNT 4.13 10^6/uL (4.35-5.55); RED CELL DISTRIBUTION WIDTH 14.5 % (11.5-14.0); SEGMENTED NEUTROPHILS % (AUTO) 71.5 % (42-78); TOTAL CELLS COUNTED % (AUTO) 100 %; WHITE BLOOD COUNT 9.2 10^3/uL (4.0-10.5)
[2018-07-03 17:08] LABS: ANION GAP 12 (5-19); BLOOD UREA NITROGEN 20 mg/dL (7-20); CARBON DIOXIDE 25 mmol/L (22-30); CHLORIDE 99 mmol/L (98-107); GLUCOSE 97 mg/dL (75-110); POTASSIUM 5.5 mmol/L (3.6-5.0); SODIUM 136.3 mmol/L (137-145)
[2018-07-03] MEDS ORDERED: OXYCODONE-ACETAMINOPHEN 5-325 MG TABLET PO ONE (18:28)
--- NOTE | 2018-07-03 18:28 | ER Document Report ---
Addendum entered and electronically signed by MINA PEDRAZA NP 07/03/18 18:29: Course - Re-evaluation Re-evalutation: 07/03/18 18:29 patient reports he normally takes Percocet for his pain. Percocet ordered - Vital Signs Vital signs: Temp Pulse Resp BP Pulse Ox 98.1 F 74 16 101/69 07/03/18 15:13 07/03/18 15:13 07/03/18 15:13 07/03/18 15:13 - Laboratory Result Diagrams: 07/03/18 16:11 07/03/18 16:11 Laboratory results interpreted by me: 07/03/18 07/03/18 16:11 16:11 RBC 4.13 L Hgb 11.8 L Hct 34.9 L RDW 14.5 H Plt Count 545 H Sodium 136.3 L Potassium 5.5 H Original Note: ED Medical Screen (RME) - General Chief Complaint: Wound Recheck Stated Complaint: WOUND CHECK Time Seen by Provider: 07/03/18 18:09 [facility] [[facility]] - Follow up as needed Mode of Arrival: Medic Information source: Patient Notes: Patient presents to the emergency department with reports that his decubitus on his buttocks is getting worse. He reports he has had the decubitus he had a surgery for it here back in May. He is unsure what surgeon did the surgery. Patient reports home health is been coming out taking care of the wound. He reports the wound is now draining green drainage. reports increased pain. Denies fevers. Complains of severe pain to his AKA I have greeted and performed a rapid initial assessment of this patient. A comprehensive ED assessment and evaluation of the patient, analysis of test results and completion of the medical decision making process will be conducted by additional ED providers. Dictation of this chart was performed using voice recognition software; therefore, there may be some unintended grammatical errors. I did TRAVEL OUTSIDE OF THE [place] IN LAST 30 DAYS: No - Related Data Allergies/Adverse Reactions: nalbuphine [From Nubain] Allergy (Verified 07/03/18 15:37) Past Medical History - Past Medical History Cardiac Medical History: Reports: Hx Hypercholesterolemia, Hx Hypertension Pulmonary Medical History: Reports: Hx COPD Neurological Medical History: Reports: Hx Cerebrovascular Accident - x 4 Renal/ Medical History: Denies: Hx Peritoneal Dialysis Psychiatric Medical History: Reports: Hx Depression, Hx Post Traumatic Stress Disorder Past Surgical History: Reports: Hx Abdominal Surgery - ostomy, Hx Bowel Diversion - Diverting colostomy on 06/14/2018, Hx Carotid Endarterectomy - Bilateral, Hx Orthopedic Surgery - left shoulder, left leg amputation, Hx Vascular Surgery - Left femoral endarterectomy with left external iliac angioplasty and stent. - Immunizations Hx Diphtheria, Pertussis, Tetanus Vaccination: Yes Physical Exam - Vital signs Vitals: Temp Pulse Resp BP 98.1 F 74 16 101/69 07/03/18 15:13 07/03/18 15:13 07/03/18 15:13 07/03/18 15:13 Course - Vital Signs Vital signs: Temp Pulse Resp BP Pulse Ox 98.1 F 74 16 101/69 07/03/18 15:13 07/03/18 15:13 07/03/18 15:13 07/03/18 15:13 - Laboratory Result Diagrams: 07/03/18 16:11 07/03/18 16:11 Laboratory results interpreted by me: 07/03/18 07/03/18 16:11 16:11 RBC 4.13 L Hgb 11.8 L Hct 34.9 L RDW 14.5 H Plt Count 545 H Sodium 136.3 L Potassium 5.5 H Doctor's Discharge - Discharge Referrals: [facility] [Primary [facility]] - Follow up as needed
--- NOTE | 2018-07-03 21:24 | ER Document Report ---
ED General - General Chief Complaint: Wound Recheck Stated Complaint: WOUND CHECK Time Seen by Provider: 07/03/18 18:09 Primary Care Provider: ALEE SAGASTUME [Primary Care Provider] - Follow up tomorrow Mode of Arrival: Medic Notes: Patient is a 63-year-old male with a prior CVA, left BKA, debility at baseline, presents due to concerns of possible infection of his chronic right decubitus wound. He has been following with wound management as well as home care. Apparently 1 of the home nursing staff was concerned that he could have infection of the right buttock wound and referred him to the emergency department via EMS. The patient reports that the wound has a constant, throbbing, severe pain not changed today relative to the last several days. Nothing improves or worsens his symptoms. He has had this wound chronically and had operative management performed in May 2018. Has not had fever or constitutional symptoms. TRAVEL OUTSIDE OF THE [place] IN LAST 30 DAYS: No - Related Data Allergies/Adverse Reactions: nalbuphine [From [place]] Allergy (Verified 07/03/18 15:37) Past Medical History - General Information source: Patient - Social History Smoking Status: Current Every Day Smoker Frequency of alcohol use: None Drug Abuse: None Family History: Reviewed & Not Pertinent Patient has suicidal ideation: No Patient has homicidal ideation: No - Past Medical History Cardiac Medical History: Reports: Hx Hypercholesterolemia, Hx Hypertension Pulmonary Medical History: Reports: Hx COPD Neurological Medical History: Reports: Hx Cerebrovascular Accident - x 4 Renal/ Medical History: Denies: Hx Peritoneal Dialysis Psychiatric Medical History: Reports: Hx Depression, Hx Post Traumatic Stress Disorder Past Surgical History: Reports: Hx Abdominal Surgery - ostomy, Hx Bowel Diversion - Diverting colostomy on 06/14/2018, Hx Carotid Endarterectomy - Bilateral, Hx Orthopedic Surgery - left shoulder, left leg amputation, Hx Vascular Surgery - Left femoral endarterectomy with left external iliac angioplasty and stent. - Immunizations Hx Diphtheria, Pertussis, Tetanus Vaccination: Yes Review of Systems - Review of Systems Notes: Constitutional: Negative for fever. HENT: Negative for sore throat. Eyes: Negative for visual changes. Cardiovascular: Negative for chest pain. Respiratory: Negative for shortness of breath. Gastrointestinal: Negative for abdominal pain, vomiting or diarrhea. Genitourinary: Negative for dysuria. Musculoskeletal: Negative for back pain. Skin: Positive for chronic right sacral decubitus wound Neurological: Negative for headaches, weakness or numbness. 10 point ROS negative except as marked above and in HPI. Physical Exam - Vital signs Vitals: Temp Pulse Resp BP 98.1 F 74 16 101/69 07/03/18 15:13 07/03/18 15:13 07/03/18 15:13 07/03/18 15:13 Interpretation: Normal Notes: PHYSICAL EXAMINATION: GENERAL: Appears older than stated age but in no acute distress HEAD: Atraumatic, normocephalic. EYES: Pupils equal round and reactive to light, extraocular movements intact, sclera anicteric, conjunctiva are normal. ENT: nares patent, oropharynx clear without exudates. Mildly dry mucous membranes. NECK: Normal range of motion, supple without lymphadenopathy LUNGS: Breath sounds clear to auscultation bilaterally and equal. No wheezes rales or rhonchi. HEART: Regular rate and rhythm without murmurs ABDOMEN: Soft, nontender, normoactive bowel sounds. No guarding, no rebound. No masses appreciated. EXTREMITIES: Left BKA present. NEUROLOGICAL: No focal neurological deficits. Moves all extremities spontaneously and on command. PSYCH: Normal mood, normal affect. SKIN: Warm, Dry, normal turgor, there is a large right sacral decubitus wound with granulation tissue, scant whitish discharge that is non-malodorous and appears to be consistent with a healing wound. Course - Re-evaluation Re-evalutation: 07/03/18 21:23 Patient presents by EMS due to concerns that his sacral decubitus wound may be infected. Patient was turned, dressing was removed and there is a large extensive right sacral decubitus ulcer stage IV that actually appears to have good granulation tissue. There is no necrotic tissue, no malodorous discharge. Good capillary refill. No spreading erythema or redness beyond additional pressure points on the remaining tissue. No leukocytosis, vitals within normal limits. I do not see an indication for hospitalization and IV antibiotics at this time. Patient likewise agrees states he came here at the behest of his home health care nurse. He is ready on oral antibiotics as an outpatient and I think this should be continued. At this time will discharge with return precautions and follow-up recommendations. Verbal discharge instructions given a the bedside and opportunity for questions given. Medication warnings reviewed. Patient is in agreement with this plan and has verbalized understanding of return precautions and the need for primary care follow-up in the next 24-72 hours. - Vital Signs Vital signs: Temp Pulse Resp BP Pulse Ox 98.1 F 86 17 141/65 H 98 07/03/18 22:00 07/03/18 22:00 07/03/18 22:00 07/03/18 22:00 07/03/18 22:00 - Laboratory Result Diagrams: 07/03/18 16:11 07/03/18 16:11 Laboratory results interpreted by me: 07/03/18 07/03/18 16:11 16:11 RBC 4.13 L Hgb 11.8 L Hct 34.9 L RDW 14.5 H Plt Count 545 H Sodium 136.3 L Potassium 5.5 H Discharge - Discharge Clinical Impression: Sacral decubitus ulcer Qualifiers: Pressure injury stage: stage 4 Qualified Code(s): L89.154 - Pressure ulcer of sacral region, stage 4 Condition: Stable Disposition: HOME, SELF-CARE Additional Instructions: The wound appears to be healing and does not have overt signs of severe infection. White blood cell count is normal there is no immediate indication for hospitalization this time. Please continue to follow with home health and your chronic wound management doctor. Return if you develop a fever greater than 101 F, increasing or foul-smelling drainage from the area, increasing pain or any other symptoms that are worrisome to you. Referrals: [facility] [Primary [facility]] - Follow up tomorrow
[2018-07-03 22:26] VITALS: BP 141/65
== END 2018-07-03 22:25 | disposition home or self-care (01) ==
LOC: ER 14:55
DX: L89.154 Pressure ulcer of sacral region, stage 4 (principal); Z98.890 Other specified postprocedural states; R53.81 Other malaise; F17.200 Nicotine dependence, unspecified, uncomplicated; I10 Essential (primary) hypertension; J44.9 Chronic obstructive pulmonary disease, unspecified; Z89.512 Acquired absence of left leg below knee; Z88.6 Allergy status to analgesic agent
CPT/HCPCS: 36415; 80048; 85025; 99283

== ENCOUNTER → 2018-07-29 | Outpatient (CLI) | payer OTHER ==
--- NOTE | 2018-07-29 12:57 | RADIOLOGY REPORT (SQ) ---
EXAM DESCRIPTION: PELVIS AP COMPLETED DATE/TIME: 07/29/2018 12:02 pm REASON FOR STUDY: PRESSURE ULCER OF SACRAL REGION STAGE 4 COMPARISON: None. NUMBER OF VIEWS: One view TECHNIQUE: AP Pelvis LIMITATIONS: None. FINDINGS: MINERALIZATION: Normal. HIPS: No acute fracture or dislocation. No worrisome bone lesions. PELVIS AND SACRUM: No acute fracture or dislocation. No worrisome bone lesions. No bone destruction. PUBIS AND ISCHIUM: No acute fracture. LOWER LUMBAR SPINE: No significant findings as visualized. SOFT TISSUES: No findings. OTHER: No other significant finding. IMPRESSION: NEGATIVE STUDY OF THE PELVIS. COMMENT: Pelvic fractures are often occult on plain radiographs. If strong clinical suspicion for f racture, recommend CT or MR. TECHNICAL DOCUMENTATION: JOB ID: [id number] [employer]- All Rights Reserved Reading location - IP/workstation name: [email or web address]
== END ==
LOC: RAD 11:23
PROVIDERS: ATTEND Nurse Practitioner Family
DX: L89.154 Pressure ulcer of sacral region, stage 4 (principal)
CPT/HCPCS: 72170

== ENCOUNTER → 2018-08-19 | Outpatient (CLI) | payer OTHER ==
--- NOTE | 2018-08-19 15:10 | RADIOLOGY REPORT (SQ) ---
EXAM DESCRIPTION: SACRUM AND COCCYX COMPLETED DATE/TIME: 08/19/2018 2:39 pm REASON FOR STUDY: PRESSURE ULCER OF SACRAL REGION, STAGE 4 (L89.154) L89.154 PRESSURE ULCER OF SACR AL REGION, STAGE 4 COMPARISON: None. NUMBER OF VIEWS: Three views. TECHNIQUE: AP, lateral, and tilt views of the sacrum and coccyx. LIMITATIONS: None. FINDINGS: MINERALIZATION: Normal. BONES: No acute fracture or dislocation. No worrisome bone lesions. SOFT TISSUES: No soft tissue swelling. No foreign body. OTHER: No other significant finding. IMPRESSION: NEGATIVE STUDY OF THE SACRUM AND COCCYX. TECHNICAL DOCUMENTATION: JOB ID: [id number] [employer]- All Rights Reserved Reading location - IP/workstation name: [email or web address]
[2018-08-19 15:16] LABS: ABSOLUTE BASOPHILS # (AUTO) 0.2 10^3/uL (0.0-0.2); ABSOLUTE EOSINOPHILS # (AUTO) 0.3 10^3/uL (0.0-0.6); ABSOLUTE LYMPHOCYTES (AUTO) 2.9 10^3/uL (0.5-4.7); ABSOLUTE MONOCYTES (AUTO) 0.6 10^3/uL (0.1-1.4); ABSOLUTE NEUT (AUTO) 7.4 10^3/uL (1.7-8.2); BASOPHILS % (AUTO) 1.5 % (0-2); EOSINOPHILS % (AUTO) 2.9 % (0-6); HEMATOCRIT 37.1 % (37.9-51.0); HEMOGLOBIN 12.3 g/dL (13.5-17.0); LYMPHOCYTES % (AUTO) 25.5 % (13-45); MEAN CORPUSCULAR HEMOGLOBIN 27.5 pg (27.0-33.4); MEAN CORPUSCULAR VOLUME 83 fl (80-97); MONOCYTES % (AUTO) 5.4 % (3-13); PLATELET COUNT 488 10^3/uL (150-450); RED BLOOD COUNT 4.46 10^6/uL (4.35-5.55); RED CELL DISTRIBUTION WIDTH 17.4 % (11.5-14.0); SEGMENTED NEUTROPHILS % (AUTO) 64.7 % (42-78); TOTAL CELLS COUNTED % (AUTO) 100 %; WHITE BLOOD COUNT 11.5 10^3/uL (4.0-10.5)
[2018-08-19 15:27] LABS: ALBUMIN 3.8 g/dL (3.5-5.0); ALKALINE PHOSPHATASE 82 U/L (38-126); ANION GAP 8 (5-19); ASPARTATE AMINO TRANSFERASE 11 U/L (17-59); BLOOD UREA NITROGEN 10 mg/dL (7-20); CALCIUM 9.7 mg/dL (8.4-10.2); CARBON DIOXIDE 27 mmol/L (22-30); CHLORIDE 101 mmol/L (98-107); GLUCOSE 94 mg/dL (75-110); POTASSIUM 4.7 mmol/L (3.6-5.0); SODIUM 136.4 mmol/L (137-145); TOTAL PROTEIN 6.7 g/dL (6.3-8.2)
[2018-08-19 15:31] LABS: ALANINE AMINOTRANSFERASE 16 U/L (21-72); BILIRUBIN,DIRECT 0.2 mg/dL (0.0-0.4); BILIRUBIN,TOTAL 0.4 mg/dL (0.2-1.3)
[2018-08-19 16:00] LABS: ERYTHROCYTE SEDIMENTATION RATE 51 mm/hr (0-20)
== END ==
LOC: RAD 14:12
PROVIDERS: ATTEND Nurse Practitioner Family
DX: L89.154 Pressure ulcer of sacral region, stage 4 (principal)
CPT/HCPCS: 36415; 72220; 80053; 85025; 85652; 86140

== ENCOUNTER 2019-01-27 12:50 | Emergency (ER) | payer OTHER ==
[2019-01-27 12:59] VITALS: BP 175/80
--- NOTE | 2019-01-27 13:06 | ER Document Report ---
ED Medical Screen (RME) - General Chief Complaint: Abdominal Swelling Stated Complaint: ABDOMINAL SWELLING Time Seen by Provider: 01/27/19 12:58 Primary Care Provider: CALVIN CHRISTENSEN MD [Primary Care Provider] - Follow up as needed Notes: Patient is a 63-year-old male with a history of stroke with left-sided paralysis and colon resection with colostomy who presents the emergency department with a chief complaint of abdominal swelling. Patient reports this is been present for about 1 week. Patient states he has been eating normally without nausea, vomiting or diarrhea. Patient reports normal bowel movements through the colostomy bag without notable blood. Patient reports urinary frequency. Patient reports that he feels somewhat irritated around the colostomy site TRAVEL OUTSIDE OF THE [place] IN LAST 30 DAYS: No - Related Data Allergies/Adverse Reactions: nalbuphine [From Nubain] Allergy (Verified 07/03/18 15:37) Past Medical History - Past Medical History Cardiac Medical History: Reports: Hx Hypercholesterolemia, Hx Hypertension Pulmonary Medical History: Reports: Hx COPD Neurological Medical History: Reports: Hx Cerebrovascular Accident - x 4 Renal/ Medical History: Denies: Hx Peritoneal Dialysis Psychiatric Medical History: Reports: Hx Depression, Hx Post Traumatic Stress Disorder Past Surgical History: Reports: Hx Abdominal Surgery - ostomy, Hx Bowel Diversion - Diverting colostomy on 06/14/2018, Hx Carotid Endarterectomy - Bilateral, Hx Orthopedic Surgery - left shoulder, left leg amputation, Hx Vascular Surgery - Left femoral endarterectomy with left external iliac angioplasty and stent. - Immunizations Hx Diphtheria, Pertussis, Tetanus Vaccination: Yes Physical Exam - Vital signs Vitals: Temp Pulse Resp BP Pulse Ox 97.7 F 74 20 175/80 H 99 01/27/19 12:58 01/27/19 12:58 01/27/19 12:58 01/27/19 12:58 01/27/19 12:58 - Abdominal Inspection: Normal Distension: No distension Bowel sounds: Normal Tenderness: Nontender Notes: Patient has a colostomy bag to the left lower quadrant. Abdomen is soft and nontender. Patient does have semi-formed stool noted within the bag without obvious blood. Course - Re-evaluation Re-evalutation: 01/27/19 13:06 I have greeted and performed a rapid initial assessment of this patient. A comprehensive ED assessment and evaluation of the patient, analysis of test results and completion of the medical decision making process will be conducted by additional ED providers. - Vital Signs Vital signs: Temp Pulse Resp BP Pulse Ox 97.7 F 74 20 175/80 H 99 01/27/19 12:58 01/27/19 12:58 01/27/19 12:58 01/27/19 12:58 01/27/19 12:58 Doctor's Discharge - Discharge Referrals: CALVIN CHRISTENSEN MD [Primary Care Provider] - Follow up as needed
--- NOTE | 2019-01-27 14:38 | RADIOLOGY REPORT (SQ) ---
EXAM DESCRIPTION: ACUTE ABDOMEN SERIES COMPLETED DATE/TIME: 01/27/2019 2:11 pm REASON FOR STUDY: generalized abd pain COMPARISON: None. NUMBER OF VIEWS: Three views. TECHNIQUE: Frontal chest, supine abdomen and upright/decubitus abdomen radiographic images acquired. LIMITATIONS: None. FINDINGS: CHEST: Lungs clear of infiltrates. FREE AIR: None. No abnormal gas collections. BOWEL GAS PATTERN: Nonobstructive pattern. No dilated loops or air fluid levels. CALCIFICATIONS: No suspicious calcifications. HARDWARE: Colostomy is present left lower quadrant. Left iliac stent. SOFT TISSUES: No gross mass or suggestion of organomegaly. BONES: No acute fracture. No worrisome bone lesions. OTHER: No other significant finding. IMPRESSION: NO RADIOGRAPHIC EVIDENCE FOR ACUTE ABDOMINAL DISEASE. TECHNICAL DOCUMENTATION: JOB ID: [id number] [employer]- All Rights Reserved Reading location - IP/workstation name: [email or web address]
[2019-01-27 15:24] LABS: APPEARANCE,URINE SLIGHTLY-CLOUDY; BILIRUBIN,URINE NEGATIVE (NEGATIVE); COLOR,URINE YELLOW; GLUCOSE, URINE NEGATIVE (NEGATIVE); KETONES,URINE NEGATIVE (NEGATIVE); LEUKOCYTE ESTERASE,URINE SMALL (NEGATIVE); NITRITE,URINE POSITIVE (NEGATIVE); PROTEIN,URINE NEGATIVE (NEGATIVE); URINE SPECIFIC GRAVITY 1.024; UROBILINOGEN,URINE NEGATIVE mg/dL (<2.0)
[2019-01-27] MEDS ORDERED: DOXYCYCLINE HYCLATE 100 MG TABLET PO ONE (15:46)
[2019-01-27] MEDS ORDERED: CEFTRIAXONE INJ 500 MG VIAL IM ONE (15:47)
[2019-01-27] MEDS ORDERED: LIDOCAINE 1% INJ-PF (10 MG/ML) 30 ML SDV INFIL ONE (15:47)
--- NOTE | 2019-01-27 16:28 | ER Document Report ---
Entered by MARIANA DAVIES SCRIBE 01/27/19 1436 Acting as scribe for:LENO SIFUENTES DO ED GI/ - General Chief Complaint: Abdominal Swelling Stated Complaint: ABDOMINAL SWELLING Time Seen by Provider: 01/27/19 12:58 Primary Care Provider: MITESH,ALEE [Primary Care Provider] - Follow up as needed Mode of Arrival: Wheelchair Information source: Patient Notes: This 63-year-old male patient presents to the emergency department today stating that his home health outreach coordinator thought his colostomy might be infected. The patient himself has no complaints and thinks that it is not infected. Patient states the aide told him that his previous aide was positive for MRSA so she "wanted him to get checked out". Patient denies any pain, vomiting, diarrhea, shortness of breath, or any concerns today. Patient also states it is very difficult to get IV access on him so he would prefer to not have blood work done. TRAVEL OUTSIDE OF THE [place] IN LAST 30 DAYS: No - Related Data Allergies/Adverse Reactions: nalbuphine [From Nubain] Allergy (Verified 07/03/18 15:37) Past Medical History - General Information source: Patient - Social History Smoking Status: Former Smoker Cigarette use (# per day): No Frequency of alcohol use: None Drug Abuse: None Lives with: Family Family History: Reviewed & Not Pertinent Patient has suicidal ideation: No Patient has homicidal ideation: No - Past Medical History Cardiac Medical History: Reports: Hx Hypercholesterolemia, Hx Hypertension Pulmonary Medical History: Reports: Hx COPD Neurological Medical History: Reports: Hx Cerebrovascular Accident - x 4 Psychiatric Medical History: Reports: Hx Depression, Hx Post Traumatic Stress Disorder Past Surgical History: Reports: Hx Abdominal Surgery - ostomy, Hx Bowel Diversion - Diverting colostomy on 06/14/2018, Hx Carotid Endarterectomy - Bilateral, Hx Orthopedic Surgery - left shoulder, left leg amputation, Hx Vascular Surgery - Left femoral endarterectomy with left external iliac angioplasty and stent. - Immunizations Hx Diphtheria, Pertussis, Tetanus Vaccination: Yes Review of Systems - Review of Systems Constitutional: See HPI, Other - no real complaints, states his at home energy consultant was concerned for possible colostomy infection EENT: No symptoms reported Cardiovascular: No symptoms reported Respiratory: denies: Short of breath Gastrointestinal: denies: Abdominal pain, Diarrhea, Vomiting Genitourinary: No symptoms reported Male Genitourinary: No symptoms reported Musculoskeletal: No symptoms reported Skin: No symptoms reported Hematologic/Lymphatic: No symptoms reported Neurological/Psychological: No symptoms reported -: Yes All other systems reviewed and negative Physical Exam - Vital signs Vitals: Temp Pulse Resp BP Pulse Ox 97.7 F 74 20 175/80 H 99 01/27/19 12:58 01/27/19 12:58 01/27/19 12:58 01/27/19 12:58 01/27/19 12:58 Interpretation: Normal - General General appearance: Appears well, Alert - HEENT Head: Normocephalic, Atraumatic Eyes: Normal Pupils: PERRL - Respiratory Respiratory status: No respiratory distress Chest status: Nontender Breath sounds: Normal Chest palpation: Normal - Cardiovascular Rhythm: Regular Heart sounds: Normal auscultation Murmur: No - Abdominal Inspection: Other - Colostomy site with no erythema or drainage. Stool output in bag. Site is pink with no evidence for prolapse. Distension: No distension Bowel sounds: Normal Tenderness: Nontender Organomegaly: No organomegaly - Back Back: Normal, Nontender - Extremities General upper extremity: Normal inspection, Nontender, Normal color, Normal ROM, Normal temperature General lower extremity: Normal inspection, Nontender, Normal color, Normal ROM, Normal temperature, Normal weight bearing. No: Suzanne's sign - Neurological Neuro grossly intact: Yes Cognition: Normal Orientation: AAOx4 Miesha Coma Scale Eye Opening: Spontaneous Miesha Coma Scale Verbal: Oriented Miesha Coma Scale Motor: Obeys Commands Miesha Coma Scale Total: 15 Speech: Normal Motor strength normal: LUE, RUE, LLE, RLE Sensory: Normal - Psychological Associated symptoms: Normal affect, Normal mood - Skin Skin Temperature: Warm Skin Moisture: Dry Skin Color: Normal Course - Re-evaluation Re-evalutation: 01/27/19 16:00 Patient apparently left in a cab and was not given medications as per nursing staff. Want to medicate patient he was gone. Attempted to call patient on his phone number and also his next of kin. Message left. Will send prescriptions to [facility] on [address] to cover urine. Patient is a 63-year-old male who was sent in by his aide because she was concerned about his colostomy site. Site appears well with no evidence for infection. Patient is however complaining about dysuria. Initially stated that he just wants to leave in a cab and then was willing to wait for urine to come back. However, when nurse went to medicate the patient for what looks like a nitrate positive UTI, patient had already left. Phone calls were made to patient and his family. Prescription sent to pharmacy near patient's house. He was prescribed cefdinir 300 mg twice daily for 10 days and doxycycline 100 mg twice daily for 10 days. Urine culture sent. - Vital Signs Vital signs: Temp Pulse Resp BP Pulse Ox 97.7 F 74 20 175/80 H 99 01/27/19 12:58 01/27/19 12:58 01/27/19 12:58 01/27/19 12:58 01/27/19 12:58 - Laboratory Laboratory results interpreted by me: 01/27/19 15:06 Urine Blood MODERATE H Urine Nitrite POSITIVE H Ur Leukocyte Esterase SMALL H Discharge - Discharge Clinical Impression: Colostomy care UTI (urinary tract infection) Qualifiers: Urinary tract infection type: site unspecified Hematuria presence: without hematuria Qualified Code(s): N39.0 - Urinary tract infection, site not specified Condition: Stable Disposition: HOME, SELF-CARE Instructions: Urinary Tract Infection ([facility]) Additional Instructions: Your colostomy does not look infected today. Please follow-up with your doctor as scheduled. Prescriptions: Cefdinir 300 mg PO BID #30 capsule Doxycycline Hyclate 100 mg PO BID #20 capsule [facility]errals: [facility] [Primary Care Provider] - Follow up as needed I personally performed the services described in the documentation, reviewed and edited the documentation which was dictated to the scribe in my presence, and it accurately records my words and actions.
== END 2019-01-27 16:16 | disposition home or self-care (01) ==
LOC: ER 12:50
DX: N39.0 Urinary tract infection, site not specified (principal); Z93.3 Colostomy status; R19.00 Intra-abdominal and pelvic swelling, mass and lump, unspecified site; Z86.14 Personal history of Methicillin resistant Staphylococcus aureus infection; Z87.891 Personal history of nicotine dependence; I10 Essential (primary) hypertension; J44.9 Chronic obstructive pulmonary disease, unspecified
CPT/HCPCS: 74022; 81001; 87086; 87088; 87186; 99281

== ENCOUNTER 2019-12-10 19:07 | Inpatient (IN) | payer OTHER, MEDICARE ==
[2019-12-10] MEDS ORDERED: RINGERS LACTATED IV ONE (20:51)
[2019-12-10] MEDS ORDERED: ONDANSETRON HCL INJ/PF 4 MG/2 ML SDV IV ONE (21:00)
--- NOTE | 2019-12-10 21:04 | ER Document Report ---
ED General - General Chief Complaint: Urinary Problem Stated Complaint: VOMITING Time Seen by Provider: 12/10/19 20:22 Primary Care Provider: CARMELLA TAYLOR PA [Primary Care Provider] - Follow up as needed TRAVEL OUTSIDE OF THE [place] IN LAST 30 DAYS: No - HPI Notes: Patient is a 64-year-old male with a history of hypertension, hyperlipidemia, peripheral vascular disease, who presents to the emergency department for evaluation of dysuria and vomiting. He states he was diagnosed with a urinary tract infection by the DC. He was started on an antibiotic, then a second. He does not remember which either of them were. He states that he started vomiting, and he still has dysuria so significantly that he "screams" every time he has to urine. He denies any april hematuria. No fevers but he has had some chills. He has had 2 episodes of nonbloody, nonbilious emesis today. His ostomy output has been normal. He denies any coughing or shortness of breath. Currently denies any pain, does have some nausea. - Related Data Allergies/Adverse Reactions: nalbuphine [From [place]] Allergy (Verified 07/03/18 15:37) Home Medications: Lisinopril, losartan, metoprolol, brillinta Past Medical History - General Information source: Patient - Social History Smoking Status: Current Every Day Smoker Family History: Reviewed & Not Pertinent Patient has homicidal ideation: No - Past Medical History Cardiac Medical History: Reports: Hx Hypercholesterolemia, Hx Hypertension Pulmonary Medical History: Reports: Hx COPD Neurological Medical History: Reports: Hx Cerebrovascular Accident - x 5 Renal/ Medical History: Denies: Hx Peritoneal Dialysis GI Medical History: Reports: Other - Ostomy Skin Medical History: Reports Hx MRSA Psychiatric Medical History: Reports: Hx Depression, Hx Post Traumatic Stress Disorder Past Surgical History: Reports: Hx Bowel Diversion - Diverting colostomy on 06/14/2018, Hx Carotid Endarterectomy - Bilateral, Hx Orthopedic Surgery - left shoulder, left leg amputation, Hx Vascular Surgery - Left femoral endarterectomy with left external iliac angioplasty and stent. - Immunizations Hx Diphtheria, Pertussis, Tetanus Vaccination: Yes Review of Systems - Review of Systems Constitutional: See HPI EENT: No symptoms reported Cardiovascular: No symptoms reported Respiratory: No symptoms reported Gastrointestinal: See HPI Genitourinary: See HPI Musculoskeletal: No symptoms reported Skin: No symptoms reported Neurological/Psychological: No symptoms reported -: Yes All other systems reviewed and negative Physical Exam - Vital signs Vitals: Resp BP Pulse Ox 28 H 184/87 H 90 L 12/10/19 19:11 12/10/19 19:11 12/10/19 19:11 - Notes Notes: This is a 64-year-old male who appears stated age, no acute distress. Vital signs reviewed, please refer to chart. Temperature not documented at this time, but temperature taken by this physician and found to be 100.0 F orally. Head is normocephalic, atraumatic. Pupils equal round, reactive to light. Neck is supple without meningismus. Heart is regular rate and rhythm. Lungs reveal mildly diminished breath sounds without wheezes, rales, rhonchi. Abdomen is soft, nontender, normoactive bowel sounds throughout. Patient has a left AKA, stump not examined. Right lower extremity reveals peripheral skin changes and diminished pulses consistent with history of peripheral vascular disease. No posterior calf tenderness on the right. Patient is awake and alert, oriented x3. He exhibits a left-sided hemiparesis. Course - Re-evaluation Re-evalutation: 12/10/19 21:04 Patient presents to the emergency department for evaluation. He was initially seen by nursing, vital signs as charted. I am concerned about the possibility of sepsis in this patient with an elevated heart rate and recent UTI, which sounds as if it may have been inadequately treated. Laboratory investigations including cultures, lactic acid, VBG are ordered. IV fluids are ordered. Awaiting urinalysis. Patient is currently stable, we will continue to monitor. 12/11/19 01:37 Patient seen on recheck. He did have blood in his urine. His heart rate remains elevated. He felt warm to the touch, rechecked his temperature. He was 102 orally. I am not overwhelmed by the signs of infection in his urine, but given his symptoms, I am concerned about the possibility of a UTI/sepsis as a result. He is already failed Cipro as an outpatient, as verified through pharmacy history. I rechecked his old urine cultures. He did have Pseudomonas in the urine in the past. He was administered cefepime here. I am ordering a chest x-ray, plan on contacting medicine for admission. - Vital Signs Vital signs: Temp Pulse Resp BP Pulse Ox 29 H 184/87 H 90 L 12/10/19 19:12 12/10/19 19:11 12/10/19 19:12 - Laboratory Result Diagrams: 12/10/19 22:20 12/10/19 22:20 Laboratory results interpreted by me: 12/10/19 12/10/19 12/11/19 22:20 22:20 00:15 WBC 15.4 H Lymph % (Auto) 5.8 L Absolute Neuts (auto) 13.6 H Seg Neutrophils % 88.1 H Sodium 133.9 L Potassium 3.5 L Chloride 96 L Glucose 151 H Total Bilirubin 1.8 H Urine Blood LARGE H Discharge - Discharge Clinical Impression: Failure of outpatient treatment Fever Qualifiers: Fever type: unspecified Qualified Code(s): R50.9 - Fever, unspecified UTI (urinary tract infection) Qualifiers: Urinary tract infection type: acute cystitis Hematuria presence: with hematuria Qualified Code(s): N30.01 - Acute cystitis with hematuria Condition: Stable Disposition: ADMITTED INPATIENT Admitting Provider: Bryant (Hospitalist) Unit Admitted: Medical Floor Referrals: CARMELLA TAYLOR PA [Primary Care Provider] - Follow up as needed
[2019-12-10 22:43] LABS: ABSOLUTE BASOPHILS # (AUTO) 0.1 10^3/uL (0.0-0.2); ABSOLUTE LYMPHOCYTES (AUTO) 0.9 10^3/uL (0.5-4.7); ABSOLUTE MONOCYTES (AUTO) 0.9 10^3/uL (0.1-1.4); ABSOLUTE NEUT (AUTO) 13.6 10^3/uL (1.7-8.2); BASOPHILS % (AUTO) 0.4 % (0-2); EOSINOPHILS % (AUTO) 0.1 % (0-6); HEMATOCRIT 39.7 % (37.9-51.0); LYMPHOCYTES % (AUTO) 5.8 % (13-45); MEAN CORPUSCULAR HEMOGLOBIN 30.3 pg (27.0-33.4); MEAN CORPUSCULAR HGB CONC 35.2 g/dL (32.0-36.0); MEAN CORPUSCULAR VOLUME 86 fl (80-97); MONOCYTES % (AUTO) 5.6 % (3-13); PLATELET COUNT 290 10^3/uL (150-450); RED BLOOD COUNT 4.61 10^6/uL (4.35-5.55); RED CELL DISTRIBUTION WIDTH 13.4 % (11.5-14.0); SEGMENTED NEUTROPHILS % (AUTO) 88.1 % (42-78); TOTAL CELLS COUNTED % (AUTO) 100 %; WHITE BLOOD COUNT 15.4 10^3/uL (4.0-10.5)
[2019-12-10 22:49] LABS: INTERNATIONAL RATION (INR) 1.04; PROTHROMBIN TIME 13.8 SEC (11.4-15.4)
[2019-12-10 22:58] LABS: ALBUMIN 4.3 g/dL (3.5-5.0); ALKALINE PHOSPHATASE 99 U/L (38-126); ANION GAP 10 (5-19); ASPARTATE AMINO TRANSFERASE 17 U/L (17-59); BILIRUBIN,DIRECT 0.4 mg/dL (0.0-0.4); BILIRUBIN,TOTAL 1.8 mg/dL (0.2-1.3); BLOOD UREA NITROGEN 9 mg/dL (7-20); CALCIUM 9.5 mg/dL (8.4-10.2); CARBON DIOXIDE 28 mmol/L (22-30); CHLORIDE 96 mmol/L (98-107); GLUCOSE 151 mg/dL (75-110); POTASSIUM 3.5 mmol/L (3.6-5.0); TOTAL PROTEIN 7.2 g/dL (6.3-8.2)
[2019-12-10] MEDS ORDERED: ACETAMINOPHEN 325 MG TABLET PO ONE (23:56)
[2019-12-11] MEDS ORDERED: ONDANSETRON HCL INJ/PF 4 MG/2 ML SDV IV ONE (00:15)
[2019-12-11 00:56] LABS: APPEARANCE,URINE CLEAR; BILIRUBIN,URINE NEGATIVE (NEGATIVE); COLOR,URINE STRAW; GLUCOSE, URINE NEGATIVE (NEGATIVE); KETONES,URINE NEGATIVE (NEGATIVE); PROTEIN,URINE NEGATIVE (NEGATIVE); URINE SPECIFIC GRAVITY 1.003; UROBILINOGEN,URINE NEGATIVE mg/dL (<2.0)
[2019-12-11] MEDS ORDERED: CEFEPIME 1 GM/D5W RTU 1 GM/50 ML RTUPB IV ONE (01:35)
--- NOTE | 2019-12-11 02:19 | RADIOLOGY REPORT (SQ) ---
EXAM DESCRIPTION: XR CHEST 1 VIEW COMPLETED DATE/TME: 12/11/2019 01:35 CLINICAL HISTORY: 64 years, Male, sepsis COMPARISON: None. NUMBER OF VIEWS: 1 TECHNIQUE: Portable chest LIMITATIONS: None. FINDINGS: The heart size is normal. Lungs are clear. No pneumothorax. Mild atheromatous change thoracic aorta. Surgical clips in the neck IMPRESSION: No acute cardiopulmonary process copyright 2010 [employer]- All Rights Reserved
[2019-12-11 03:32] LABS: VENOUS BLOOD BASE EXCESS 0.8 mmol/L; VENOUS BLOOD HCO3 26.5 mmol/L (20-32); VENOUS BLOOD PCO2 46.2 mmHg (35-63); VENOUS BLOOD PH 7.38 (7.30-7.42)
[2019-12-11] MEDS ORDERED: PHENAZOPYRIDINE HCL 200 MG TABLET PO ONE (03:50)
[2019-12-11] MEDS ORDERED: LEVALBUTEROL HCL NEB 0.63 MG/3 ML AMPUL NEB PRN (04:22)
[2019-12-11] MEDS ORDERED: MAG HYDROX/AL HYDROX/SIMETH SUSP 30 ML UDCUP PO PRN (04:22)
[2019-12-11] MEDS ORDERED: MAGNESIUM HYDROXIDE SUSP 30 ML UDCUP PO PRN (04:22)
[2019-12-11] MEDS ORDERED: NICOTINE 21 MG/24 HR PATCH.TD24 TD PRN (04:25)
[2019-12-11] MEDS ORDERED: METOPROLOL TARTRATE PF/INJ 5 MG/5 ML SDV IV PRN (04:25)
[2019-12-11] MEDS ORDERED: HYDRALAZINE HCL INJ/PF 20 MG/1 ML SDV IV PRN (04:25)
[2019-12-11] MEDS ORDERED: LORAZEPAM INJ 2 MG/1 ML VIAL IV PRN (04:25)
[2019-12-11] MEDS ORDERED: GUAIFENESIN SYRP 200 MG/10 ML UDC PO PRN (04:25)
[2019-12-11] MEDS ORDERED: MORPHINE SULFATE 10 MG/ML INJ IV PRN ×4 (04:25→05:46)
[2019-12-11] MEDS ORDERED: MELATONIN 5 MG TABLET PO PRN (04:25)
[2019-12-11] MEDS ORDERED: FLUCONAZOLE 400 MG/NS RTU 400 MG/200 ML RTUPB IV ONE (04:27)
[2019-12-11] MEDS ORDERED: PROMETHAZINE HCL INJ 25 MG/1 ML VIAL IV PRN (04:28)
[2019-12-11] MEDS ORDERED: MEROPENEM 1 GM VIAL IV SCH (04:30)
[2019-12-11] MEDS ORDERED: MEROPENEM 1 GM VIAL IV PRN (04:37)
[2019-12-11] MEDS ORDERED: MEROPENEM 1 GM in NORMAL SALINE 50 ML IV ONE (04:45)
--- NOTE | 2019-12-11 06:35 | PDOC H&P ---
History of Present Illness Admission Date/PCP: 12/11/2019 03:52 GREY QUIJANO Patient complains of: Dysuria History of Present Illness: MIRYAM GOFF is a 64 year old male who presents to the emergency room with a 2-week history of dysuria. He has been treated by the [facility] with 2 different antibiotic courses for a urinary tract infection without improvement and with progressively worsening dysuria. His dysuria is now extremely severe and has recently been accompanied by nausea with vomiting and occasional chills he denies other associated or accompanying signs and symptoms. He denies prior similar episodes. He has not identified any aggravating or ameliorating factors for his dysuria. In the emergency room he was found to have a low-grade fever and a urinalysis that showed 5 RBCs, 2 white cells and a negative leukocyte esterase and a negative nitrite. He was empirically started on antibiotic therapy in the emergency room after obtaining urine and blood cultures. He was subsequently admitted to observation status for further evaluation treatment. Past Medical History Cardiac Medical History: Reports: Hyperlipidema, Hypertension, Peripheral Vascular Disease Denies: Coronary Artery Disease, DVT, Pulmonary Embolism Pulmonary Medical History: Reports: Chronic Obstructive Pulmonary Disease (COPD) Denies: Asthma EENT Medical History: Denies: Cataracts, Ears - Hearing aids Neurological Medical History: Denies: Hemorrhagic CVA, Ischemic CVA, Seizures Endocrine Medical History: Denies: Diabetes Mellitus Type 1, Diabetes Mellitus Type 2, Hyperthyroidism, Hypothyroidism, Obesity Renal/ Medical History: Denies: Chronic Kidney Disease, Nephrolithiasis Malignancy Medical History: Reports: None GI Medical History: Reports: Other - Ostomy Denies: Cirrhosis, Hepatitis, Peptic Ulcer Disease Musculoskeltal Medical History: Denies: Arthritis, Fibromyalgia Skin Medical History: Denies: Eczema, Psoriasis Psychiatric Medical History: Reports: Depression, Post Traumatic Stress Disorder, Tobacco Dependency Denies: Alcohol Dependency, Substance Abuse Traumatic Medical History: Reports: None Hematology: Denies: Anemia, Bleeding Tendencies Infectious Medical History: Reports: None Past Surgical History Past Surgical History: Reports: Carotid Endarterectomy - Bilateral, Colostomy - Diverting colostomy to allow for wound healing, Orthopedic Surgery - left shoulder, left BKA, Vascular Surgery - Left femoral endarterectomy with left external iliac angioplasty and stent. Social History Information Source: Patient Lives with: Alone Smoking Status: Current Every Day Smoker Electronic Cigarette use?: No Frequency of Alcohol Use: None Hx Recreational Drug Use: No Drugs: None Hx Prescription Drug Abuse: No - Advance Directive Resuscitation Status: Full Code Surrogate healthcare decision maker:: Michel Goff Family History Family History: CAD, Hypertension. denies: DM, Malignancy Parental Family History Reviewed: Yes Children Family History Reviewed: No Sibling(s) Family History Reviewed.: No Medication/Allergy Home Medications: Amitriptyline HCl [Elavil 25 mg Tablet] 25 mg PO QHS 06/10/18 Baclofen [Baclofen 10 mg Tablet] 10 mg PO Q12 06/10/18 Clopidogrel Bisulfate [Plavix 75 mg Tablet] 75 mg PO DAILY 06/10/18 Ezetimibe [Zetia 10 mg Tablet] 10 mg PO DAILY 06/10/18 Gabapentin [Neurontin 300 mg Capsule] 300 mg PO Q8 06/10/18 Hydroxyzine HCl [Atarax 10 mg Tablet] 10 mg PO TIDP PRN 06/10/18 Losartan Potassium [Cozaar 50 mg Tablet] 100 mg PO DAILY 06/10/18 Metoprolol Tartrate [Lopressor 50 mg Tablet] 50 mg PO Q12 06/10/18 Nicotine [Nicoderm 21 mg/24 Hr Transderm Patch] 1 patch TD DAILY 06/10/18 [place]-3 Fatty Acids/Fish Oil [Fish Oil 1,000 mg Capsule] 2,000 mg PO BID 06/10/18 Oxycodone HCl [Oxy-Ir 5 mg Tablet] 2.5 mg PO Q12HP PRN 06/10/18 Sildenafil Citrate [Viagra] 100 mg PO ASDIR PRN 06/10/18 Tamsulosin HCl [Flomax 0.4 mg Cap.sr] 0.4 mg PO DAILY 06/10/18 Amox Tr/Potassium Clavulanate [Augmentin 500-125 Tablet] 1 tab PO Q8 #30 tablet 06/17/18 Collagenase Clostridium Hist. [Santyl Ointment 30 gm] 1 applic TP DAILY #1 tube 06/17/18 Sulfamethoxazole/Trimethoprim [Bactrim Ds Tablet] 2 each PO BID #20 tablet 06/17/18 Cefdinir 300 mg PO BID #30 capsule 01/27/19 Doxycycline Hyclate 100 mg PO BID #20 capsule 01/27/19 Allergies/Adverse Reactions: nalbuphine [From Nubain] Allergy (Verified 07/03/18 15:37) Review of Systems Constitutional: ABSENT: chills, fever(s) Eyes: ABSENT: visual disturbances, other - Eye pain Ears: ABSENT: hearing changes, other - Ear pain Nose, Mouth, and Throat: ABSENT: headache(s), sore throat Cardiovascular: ABSENT: chest pain, palpitations Respiratory: ABSENT: cough, dyspnea Gastrointestinal: PRESENT: nausea, vomiting. ABSENT: abdominal pain, constipation, diarrhea Genitourinary: PRESENT: dysuria. ABSENT: hematuria Musculoskeletal: ABSENT: back pain, joint swelling Integumentary: ABSENT: pruritus, rash Neurological: ABSENT: confusion, convulsions, focal weakness, memory loss, syncope Psychiatric: ABSENT: anxiety, depression Endocrine: ABSENT: cold intolerance, heat intolerance Hematologic/Lymphatic: ABSENT: easy bruising, lymphadenopathy Allergic/Immunologic: ABSENT: seasonal rhinorrhea Physical Exam Vital Signs: Temp Pulse Resp BP Pulse Ox 29 H 184/87 H 90 L 12/10/19 19:12 12/10/19 19:11 12/10/19 19:12 Intake & Output 12/09/19 12/10/19 12/11/19 23:59 23:59 23:59 Weight 79.9 kg General appearance: PRESENT: no acute distress, cooperative Head exam: PRESENT: atraumatic, normocephalic Eye exam: PRESENT: conjunctiva pink. ABSENT: conjunctival injection, scleral icterus Ear exam: PRESENT: normal external ear exam. ABSENT: bleeding, drainage Mouth exam: PRESENT: dry mucosa, neck supple Neck exam: PRESENT: thyromegaly, tracheal deviation Respiratory exam: PRESENT: prolonged expiratory phas - Minimally prolonged expiratory phase throughout all veal, symmetrical, wheezes - Minimal wheezes throughout all vela Cardiovascular exam: PRESENT: RRR. ABSENT: clicks, gallop, rubs Pulses: PRESENT: normal carotid pulses, normal radial pulses Vascular exam: PRESENT: normal capillary refill. ABSENT: pallor GI/Abdominal exam: PRESENT: normal bowel sounds, soft, tenderness - Minimal tenderness in the suprapubic., other - Colostomy noted Rectal exam: PRESENT: deferred Extremities exam: PRESENT: other - Left BKA noted. ABSENT: joint swelling Musculoskeletal exam: ABSENT: deformity, dislocation Neurological exam: PRESENT: alert, oriented to person, oriented to place, oriented to time, oriented to situation, CN II-XII grossly intact. ABSENT: motor sensory deficit Psychiatric exam: PRESENT: appropriate affect, normal mood Skin exam: PRESENT: dry, warm. ABSENT: jaundice, rash, urticaria Results Laboratory Results: 12/10/19 22:20 12/10/19 22:20 12/10/19 12/10/19 12/10/19 22:20 22:20 22:20 WBC 15.4 H RBC 4.61 Hgb 14.0 Hct 39.7 MCV 86 MCH 30.3 MCHC 35.2 RDW 13.4 Plt Count 290 Seg Neutrophils % 88.1 H VBG pH VBG pCO2 VBG HCO3 VBG Base Excess Sodium 133.9 L Potassium 3.5 L Chloride 96 L Carbon Dioxide 28 Anion Gap 10 BUN 9 Creatinine 0.81 Est GFR ( Amer) > 60 Glucose 151 H Lactic Acid 1.2 Calcium 9.5 Total Bilirubin 1.8 H AST 17 Alkaline Phosphatase 99 Total Protein 7.2 Albumin 4.3 Urine Color Urine Appearance Urine pH Ur Specific [place] Urine Protein Urine Glucose (UA) Urine Ketones Urine Blood Urine RBC (Auto) 12/11/19 12/11/19 12/11/19 00:15 03:18 03:18 WBC RBC Hgb Hct MCV MCH MCHC RDW Plt Count Seg Neutrophils % VBG pH 7.38 VBG pCO2 46.2 VBG HCO3 26.5 VBG Base Excess 0.8 Sodium Potassium Chloride Carbon Dioxide Anion Gap BUN Creatinine Est GFR ( Amer) Glucose Lactic Acid 1.4 Calcium Total Bilirubin AST Alkaline Phosphatase Total Protein Albumin Urine Color STRAW Urine Appearance CLEAR Urine pH 7.0 Ur Specific [place] 1.003 Urine Protein NEGATIVE Urine Glucose (UA) NEGATIVE Urine Ketones NEGATIVE Urine Blood LARGE H Urine RBC (Auto) 5 Impressions: Chest X-Ray 12/11/19 01:35 IMPRESSION: No acute cardiopulmonary process copyright 2011 [employer]- All Rights Reserved Assessment and Plan - Diagnosis (1) Urethritis, nonspecific Is this a current diagnosis for this admission?: Yes (2) Nausea and vomiting Qualifiers: Vomiting type: unspecified Vomiting Intractability: non-intractable Qualified Code(s): R11.2 - Nausea with vomiting, unspecified Is this a current diagnosis for this admission?: Yes (3) Febrile illness Is this a current diagnosis for this admission?: Yes (4) Peripheral vascular disease Is this a current diagnosis for this admission?: Yes (5) HTN (hypertension) Qualifiers: Hypertension type: essential hypertension Qualified Code(s): I10 - Essential (primary) hypertension Is this a current diagnosis for this admission?: Yes (6) HLD (hyperlipidemia) Qualifiers: Hyperlipidemia type: unspecified Qualified Code(s): E78.5 - Hyperlipidemia, unspecified Is this a current diagnosis for this admission?: Yes (7) Tobacco dependence Is this a current diagnosis for this admission?: Yes - Plan Summary Summary: Patient will be admitted on observation status to the medical floor, where he will receive routine supportive and symptomatic cares. He will be given Pyridium 100 mg p.o. with meals for a 5-day course. He received Diflucan 400 mg IV x1 in the ER. He will receive morphine sulfate 2 to 4 mg IV every 2 hours as needed for pain control. He will receive Ativan 1 mg IV every 4 hours as needed for anxiety or restlessness. Antibiotic therapy will be converted to meropenem 1 g IV every 8 hours pending results of blood and urine cultures. Further laboratory and/or radiographic evaluations will be obtained as needed. Patient received a cardiac diet. - Time Time Spent with patient: Less than 15 minutes Smoking Cessation Education: 3 to 10 minutes Medications reviewed and adjusted accordingly: Yes Anticipated Discharge Disposition: Home, Self Care Anticipated Discharge Timeframe: within 72 hours - Inpatient Certification Based on my medical assessment, after consideration of the patient's comorbidities, presenting symptoms, or acuity I expect that the services needed warrant INPATIENT care.: No I certify that my determination is in accordance with my understanding of Medicare's requirements for reasonable and necessary INPATIENT services [42 CFR 412.3e].: No
[2019-12-11] MEDS ORDERED: FAMOTIDINE 20 MG TABLET PO SCH (10:00)
[2019-12-11] MEDS: DOCUSATE SODIUM 100 MG CAPSULE PO SCH ×2 (10:23→17:31)
[2019-12-11] MEDS: MORPHINE SULFATE 10 MG/ML INJ IV PRN ×2 (10:25→13:24)
[2019-12-11] MEDS: ACETAMINOPHEN 325 MG TABLET PO PRN ×2 (13:23→17:32)
[2019-12-11] MEDS ORDERED: OXYCODONE HCL IR 5 MG TABLET PO PRN (13:24)
[2019-12-11] MEDS ORDERED: HYDROXYZINE HCL 10 MG TABLET PO PRN (13:24)
[2019-12-11] MEDS: PHENAZOPYRIDINE HCL 100 MG TABLET PO SCH ×3 (13:35→17:41)
[2019-12-11] MEDS ORDERED: MEROPENEM 1 GM in NORMAL SALINE 50 ML IV SCH (14:00)
[2019-12-11] MEDS: HEPARIN SOD (PORCINE) 5,000 UNIT/ML 1 ML VIAL SUBCUT SCH ×3 (17:32→22:18)
--- NOTE | 2019-12-11 18:09 | Progress Note ---
Provider Note Provider Note: See H&P for full details of admission. Patient admitted late this morning by Dr. Hurtado. Patient seen and evaluated by me today. I have reconciled his home medications. We will obtain a CT abdomen/pelvis. Discussed this with the patient who is in agreement.
[2019-12-11] MEDS ORDERED: AMITRIPTYLINE HCL 25 MG TABLET PO SCH (22:00)
[2019-12-11] MEDS: BACLOFEN 10 MG TABLET PO SCH (22:17)
[2019-12-12] MEDS ORDERED: LINEZOLID 600 MG/300 ML RTUPB IV ONE ×2 (00:30→01:41)
[2019-12-12] MEDS: METOPROLOL TARTRATE 50 MG TABLET PO SCH ×3 (00:36→21:19)
[2019-12-12] MEDS ORDERED: TRAZODONE HCL 50 MG TABLET PO ONE (01:00)
--- NOTE | 2019-12-12 02:10 | RADIOLOGY REPORT (SQ) ---
CLINICAL HISTORY: Vomiting, pelvic pain COMPARISON: None. TECHNIQUE: CT ABDOMEN PELVIS WITHOUT THEN WITH IV CONTRAST on 12/11/2019 2:30 PM CDT This exam was performed according to our departmental dose-optimization program, which includes automated exposure control, adjustment of the mA and/or kV according to patient size and/or use of iterative reconstruction technique. FINDINGS: Lower lungs are clear. Abdomen: The liver is normal in appearance. There is no biliary dilatation. Gallbladder contains layering sludge. The pancreas and spleen are normal in appearance. There is a right adrenal adenoma measuring 2.3 cm. Left adrenal gland is unremarkable. Right kidney is unremarkable. There is mild stranding in the perinephric fat of the left kidney. Left kidney contains several small cysts in addition to a small area of decreased perfusion of the anterior midpole. Abdominal aorta is densely calcified without aneurysm. There is a stent within the left common and external iliac arteries. There is no free air. There is no retroperitoneal adenopathy. Pelvis: There is a left lower quadrant diverting colostomy with extensive peristomal small bowel containing hernia. There is no bowel obstruction. Urinary bladder is unremarkable. There is no free fluid. Appendix is not clearly seen. Skeleton: There are no acute osseous findings. No suspicious bony lesions. IMPRESSION: Suspect mild left pyelonephritis. No bowel obstruction.
[2019-12-12] MEDS: ACETAMINOPHEN 325 MG TABLET PO PRN (08:47)
[2019-12-12] MEDS: PHENAZOPYRIDINE HCL 100 MG TABLET PO SCH ×3 (08:48→17:48)
--- NOTE | 2019-12-12 09:49 | RADIOLOGY REPORT (SQ) ---
EXAM DESCRIPTION: U/S [facility] DUPLEX ART/KEANU FLOW IMAGES COMPLETED DATE/TIME: 12/12/2019 9:33 am REASON FOR STUDY: suspected renal artery stenosis COMPARISON: None. TECHNIQUE: Realtime and static grayscale images acquired. Selected color Doppler, velocities and spe ctral images recorded. LIMITATIONS: None. FINDINGS: RIGHT KIDNEY: RENAL ARTERY VELOCITIES: Origin: 146 Cm/sec. Mid: Nonvisualized. Hilum: 177 Cm/sec. Segmental ar yandel velocity 118 cm/sec. RENAL VEIN: Color doppler flow present, patent. VELOCITY RATIO: 0.77. Normal waveforms. KIDNEY: Normal size measuring 11.9 cm No significant pathology. LEFT KIDNEY: RENAL ARTERY VELOCITIES: Origin: 100 Cm/sec. Mid: Nonvisualized. Hilum: 147 Cm/sec. Segmental art sonal velocity 126 cm/sec. RENAL VEIN: Color doppler flow present, patent. VELOCITY RATIO: 0.64. Normal waveforms. KIDNEY: Normal size measuring 10.5 cm No significant pathology. BLADDER: Normal. OTHER: Aortic velocity 231 cm/sec. IMPRESSION: NO DOPPLER EVIDENCE OF HEMODYNAMICALLY SIGNIFICANT RENAL ARTERY STENOSIS. COMMENT: NORMAL RENAL ARTERY/AORTA VELOCITY RATIO IS LESS THAN OR EQUAL TO 3.5. TECHNICAL DOCUMENTATION: JOB ID: [id number] 2010 [employer]- All Rights Reserved Reading location - IP/workstation name: [email or web address]
[2019-12-12] MEDS: DOCUSATE SODIUM 100 MG CAPSULE PO SCH ×2 (10:14→17:48)
[2019-12-12] MEDS: BACLOFEN 10 MG TABLET PO SCH ×2 (10:14→21:19)
[2019-12-12] MEDS: EZETIMIBE 10 MG TABLET PO SCH (10:14)
[2019-12-12] MEDS: MORPHINE SULFATE 10 MG/ML INJ IV PRN ×2 (10:14→19:39)
[2019-12-12] MEDS: LOSARTAN POTASSIUM 50 MG TABLET PO SCH (10:14)
[2019-12-12] MEDS: LINEZOLID 600 MG/300 ML RTUPB IV SCH ×2 (10:16→21:19)
[2019-12-12 11:06] LABS: HEMATOCRIT 32.8 % (37.9-51.0); MEAN CORPUSCULAR HEMOGLOBIN 30.1 pg (27.0-33.4); MEAN CORPUSCULAR HGB CONC 35.1 g/dL (32.0-36.0); MEAN CORPUSCULAR VOLUME 86 fl (80-97); PLATELET COUNT 212 10^3/uL (150-450); RED BLOOD COUNT 3.83 10^6/uL (4.35-5.55); RED CELL DISTRIBUTION WIDTH 13.3 % (11.5-14.0); WHITE BLOOD COUNT 9.3 10^3/uL (4.0-10.5)
[2019-12-12 11:08] LABS: HEMOGLOBIN 11.5 g/dL (13.5-17.0)
[2019-12-12 11:27] LABS: ANION GAP 6 (5-19); BLOOD UREA NITROGEN 8 mg/dL (7-20); CALCIUM 8.4 mg/dL (8.4-10.2); CARBON DIOXIDE 28 mmol/L (22-30); CHLORIDE 98 mmol/L (98-107); GLUCOSE 131 mg/dL (75-110)
[2019-12-12 12:18] LABS: PROSTATE SPECIFIC ANTIGEN 0.91 ng/mL (<4.00)
[2019-12-12] MEDS: POTASSIUM CHLORIDE 20 MEQ PACKET PO SCH ×2 (14:46→21:18)
[2019-12-12] MEDS ORDERED: PROMETHAZINE HCL INJ 25 MG/1 ML VIAL IV PRN (15:00)
[2019-12-12] MEDS: HEPARIN SOD (PORCINE) 5,000 UNIT/ML 1 ML VIAL SUBCUT SCH ×2 (15:02→21:19)
--- NOTE | 2019-12-12 16:58 | PDOC PROGRESS REPORT ---
Subjective Subjective:: Per Previous Physician: "MIRYAM GOFF is a 64 year old male who presents to the emergency room with a 2-week history of dysuria. He has been treated by the [facility] with 2 different antibiotic courses for a urinary tract infection without improvement and with progressively worsening dysuria. His dysuria is now extremely severe and has recently been accompanied by nausea with vomiting and occasional chills he denies other associated or accompanying signs and symptoms. He denies prior similar episodes. He has not identified any aggravating or ameliorating factors for his dysuria. In the emergency room he was found to have a low-grade fever and a urinalysis that showed 5 RBCs, 2 white cells and a negative leukocyte esterase and a negative nitrite. He was empirically started on antibiotic therapy in the emergency room after obtaining urine and blood cultures. He was subsequently admitted to observation status for further evaluation treatment." 12/12/2019 CT abdomen/pelvis has not been read and patient has a 2.3 cm right adrenal adenoma found incidentally. I initiated an adrenal adenoma work-up for hormone secreting tumor. So far, results have not been consistent with a hormone secreting adenoma. PSA is within normal limits. Patient still feels like he is "pissing razor blades" and is still having a great deal of pain when he urinates. I started him on Flomax and nursing did a PVR that only showed approximately 100 cc of urine in his bladder. UA was bloody but not overtly infected. It did not meet criteria for reflex to culture. Blood culture 1/2 bottles positive for staph epidermidis, almost certainly a contaminant. I called the patient's son and discussed the case with him in great detail after I had already discussed the case in great detail with the patient himself. I encouraged both of them to please be respectful to the nurses and not verbally abuse them as has been done so far. CT abdomen pelvis also showed possible renal blood flow insufficiency order renal artery/vein PVL which did not show any acute abnormalities. Ultimately, patient needs a urology evaluation which we do not have at this facility. He has had multiple courses of antibiotics and they have not made any difference in his symptoms according to the patient and his son. I recommend he get a pyelogram from a urologist. I am not sure I will be able to solve his problem here and this may need to be a work-up that is continued outpatient in the urology clinic. Reason For Visit: COMPLICATED UTI, FAILED OUTPATIENT IV ABX Physical Exam Vital Signs: Temp Pulse Resp BP Pulse Ox 97.5 F 75 15 108/59 L 92 12/12/19 15:20 12/12/19 15:20 12/12/19 15:20 12/12/19 15:20 12/12/19 15:20 Intake & Output 12/11/19 12/12/19 12/13/19 06:59 06:59 06:59 Intake Total 2700 800 260 Output Total 650 Balance 2700 150 260 Weight 79.9 kg 174.2 kg Exam: General appearance: PRESENT: no acute distress, well-developed, well-nourished, states his urethra still very painful Head exam: PRESENT: atraumatic, normocephalic Eye exam: PRESENT: conjunctiva pink. ABSENT: scleral icterus Mouth exam: PRESENT: moist Respiratory exam: PRESENT: clear to auscultation kami. ABSENT: rales, rhonchi, wheezes Cardiovascular exam: PRESENT: RRR. ABSENT: diastolic murmur, rubs, systolic murmur GI/Abdominal exam: PRESENT: normal bowel sounds, soft. ABSENT: distended, guarding, mass, organolmegaly, rebound, tenderness Neurological exam: PRESENT: alert, awake, oriented to person, oriented to place, oriented to time, oriented to situation Psychiatric exam: PRESENT: appropriate affect, normal mood Skin exam: PRESENT: dry, intact, warm Results Laboratory Results: 12/12/19 10:50 12/12/19 10:50 12/12/19 12/12/19 12/12/19 10:50 10:50 10:50 WBC 9.3 RBC 3.83 L Hgb 11.5 L D Hct 32.8 L MCV 86 MCH 30.1 MCHC 35.1 RDW 13.3 Plt Count 212 Sodium 132.4 L Potassium 3.0 L* Chloride 98 Carbon Dioxide 28 Anion Gap 6 BUN 8 Creatinine 0.70 Est GFR ( Amer) > 60 Glucose 131 H Calcium 8.4 Magnesium 1.9 Prostate Specific Ag 0.910 12/11/19 03:18 Blood Blood Culture (PCR) - Final Impressions: Chest X-Ray 12/11/19 01:35 IMPRESSION: No acute cardiopulmonary process copyright 2011 [employer]- All Rights Reserved Abdomen/Pelvis CT 12/11/19 14:30 IMPRESSION: Suspect mild left pyelonephritis. No bowel obstruction. Vascular Ultrasound 12/12/19 00:00 IMPRESSION: NO DOPPLER EVIDENCE OF HEMODYNAMICALLY SIGNIFICANT RENAL ARTERY STENOSIS. Assessment and Plan - Diagnosis (1) Urethritis, nonspecific Is this a current diagnosis for this admission?: Yes Plan: Unclear etiology, has failed multiple courses of antibiotics outpatient given to [facility] abdomen/pelvis showed questionable mild pyelonephritis on the left Pyridium Needs urology outpatient evaluation and likely would benefit from pyelogram/cystogram (2) Nausea and vomiting Qualifiers: Vomiting type: unspecified Vomiting Intractability: non-intractable Qualified Code(s): R11.2 - Nausea with vomiting, unspecified Is this a current diagnosis for this admission?: Yes Plan: Antiemetics Resolved (3) Peripheral vascular disease Is this a current diagnosis for this admission?: Yes Plan: Brilinta continued Needs follow-up with outpatient vascular surgery (4) Acute encephalopathy Is this a current diagnosis for this admission?: Yes Plan: Unclear if patient was actually altered on admission or if this is simply his baseline vascular dementia (5) HLD (hyperlipidemia) Qualifiers: Hyperlipidemia type: unspecified Qualified Code(s): E78.5 - Hyperlipidemia, unspecified Is this a current diagnosis for this admission?: Yes Plan: Diet controlled (6) HTN (hypertension) Qualifiers: Hypertension type: essential hypertension Qualified Code(s): I10 - Essential (primary) hypertension Is this a current diagnosis for this admission?: Yes Plan: Home medications, controlled (7) History of CVA (cerebrovascular accident) Is this a current diagnosis for this admission?: Yes Plan: Has had approximately 5 strokes per the patient's son, and has some vascular dementia as a result of this Baseline mentation currently per son (8) 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 He will be given Pyridium 100 mg p.o. with meals for a 5-day course. He received Diflucan 400 mg IV x1 in the ER. He will receive morphine sulfate 2 to 4 mg IV every 2 hours as needed for pain control. He will receive Ativan 1 mg IV every 4 hours as needed for anxiety or restlessness. Antibiotic therapy will be converted to meropenem 1 g IV every 8 hours pending results of blood and urine cultures. Further laboratory and/or radiographic evaluations will be obtained as needed. Patient received a cardiac diet. - Time Time Spent with patient: 35 or more minutes Medications reviewed and adjusted accordingly: Yes Anticipated Discharge Disposition: Home, Self Care Anticipated Discharge Timeframe: within 72 hours - Inpatient Certification Based on my medical assessment, after consideration of the patient's comorbidities, presenting symptoms, or acuity I expect that the services needed warrant INPATIENT care.: Yes I certify that my determination is in accordance with my understanding of Medicare's requirements for reasonable and necessary INPATIENT services [42 CFR 412.3e].: Yes Medical Necessity: Significant Comorbidiites Make Outpatient Treatment Too Risky, Need Close Monitoring Due to Risk of Patient Decompensation, Need for IV Antibiotics, Risk of Complication if Not Cared For in Hospital, Risk of Diagnosis Which Will Require Inpatient Eval/Care/Monitoring
[2019-12-12] MEDS ORDERED: TRAZODONE HCL 50 MG TABLET PO SCH (22:00)
[2019-12-13] MEDS: PHENAZOPYRIDINE HCL 100 MG TABLET PO SCH ×2 (07:52→12:09)
[2019-12-13] MEDS: METOPROLOL TARTRATE 50 MG TABLET PO SCH (09:16)
[2019-12-13] MEDS: EZETIMIBE 10 MG TABLET PO SCH (09:16)
[2019-12-13] MEDS: BACLOFEN 10 MG TABLET PO SCH (09:17)
[2019-12-13] MEDS: POTASSIUM CHLORIDE 20 MEQ PACKET PO SCH (09:17)
[2019-12-13] MEDS: LOSARTAN POTASSIUM 50 MG TABLET PO SCH (09:17)
[2019-12-13] MEDS: DOCUSATE SODIUM 100 MG CAPSULE PO SCH (09:17)
[2019-12-13 09:42] LABS: ANION GAP 7 (5-19); BLOOD UREA NITROGEN 7 mg/dL (7-20); CALCIUM 8.5 mg/dL (8.4-10.2); CARBON DIOXIDE 29 mmol/L (22-30); CHLORIDE 99 mmol/L (98-107); GLUCOSE 109 mg/dL (75-110); POTASSIUM 3.4 mmol/L (3.6-5.0)
[2019-12-13] MEDS: LINEZOLID 600 MG/300 ML RTUPB IV SCH (10:49)
[2019-12-13] MEDS: ACETAMINOPHEN 325 MG TABLET PO PRN (11:17)
[2019-12-13] MEDS: HEPARIN SOD (PORCINE) 5,000 UNIT/ML 1 ML VIAL SUBCUT SCH ×3 (13:53→14:03)
[2019-12-13 14:33] VITALS: BP 120/70
--- NOTE | 2019-12-13 16:03 | PDOC DISCHARGE SUMMARY ---
Impression - Admit/DC Date/PCP Admission Date/Primary Care Provider: 12/12/19 13:07 GREY QUIJANO Discharge Date: 12/13/19 - Discharge Diagnosis (1) Urethritis, nonspecific Is this a current diagnosis for this admission?: Yes (2) Nausea and vomiting Is this a current diagnosis for this admission?: Yes (3) Peripheral vascular disease Is this a current diagnosis for this admission?: Yes (4) Acute encephalopathy Is this a current diagnosis for this admission?: Yes (5) HLD (hyperlipidemia) Is this a current diagnosis for this admission?: Yes (6) HTN (hypertension) Is this a current diagnosis for this admission?: Yes (7) History of CVA (cerebrovascular accident) Is this a current diagnosis for this admission?: Yes (8) 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 He will be given Pyridium 100 mg p.o. with meals for a 5-day course. He received Diflucan 400 mg IV x1 in the ER. He will receive morphine sulfate 2 to 4 mg IV every 2 hours as needed for pain control. He will receive Ativan 1 mg IV every 4 hours as needed for anxiety or restlessness. Antibiotic therapy will be converted to meropenem 1 g IV every 8 hours pending results of blood and urine cultures. Further laboratory and/or radiographic evaluations will be obtained as needed. Patient received a cardiac diet. - Additional Information Resuscitation Status: Full Code Discharge Diet: As Tolerated Discharge Activity: Activity As Tolerated, Balance Activity w/Rest Referrals: CARMELLA TAYLOR PA [Primary Care Provider] - Follow up as needed Prescriptions: Ciprofloxacin HCl [Cipro 500 mg Tablet] 500 mg PO BID 5 Days #10 tablet Tamsulosin HCl [Flomax 0.4 mg Cap.sr] 0.4 mg PO DAILY #30 cap.sr.24h Nicotine [Nicoderm 21 mg/24 Hr Transderm Patch] 1 each TD DAILY #30 patch.td24 Phenazopyridine HCl [Pyridium 100 mg Tablet] 100 mg PO BID #20 tablet Home Medications: Amitriptyline HCl [Elavil 25 mg Tablet] 25 mg PO QHS 06/10/18 Baclofen [Baclofen 10 mg Tablet] 10 mg PO Q12 06/10/18 Ezetimibe [Zetia 10 mg Tablet] 10 mg PO DAILY 06/10/18 Hydroxyzine HCl [Atarax 10 mg Tablet] 10 mg PO TIDP PRN 06/10/18 Losartan Potassium [Cozaar 50 mg Tablet] 100 mg PO DAILY 06/10/18 Metoprolol Tartrate [Lopressor 50 mg Tablet] 50 mg PO Q12 06/10/18 Oxycodone HCl [Oxy-Ir 5 mg Tablet] 2.5 mg PO Q12HP PRN 06/10/18 Ticagrelor [Brilinta] 60 mg PO Q12 12/11/19 Ciprofloxacin HCl [Cipro 500 mg Tablet] 500 mg PO BID 5 Days #10 tablet 12/13/19 Nicotine [Nicoderm 21 mg/24 Hr Transderm Patch] 1 each TD DAILY #30 patch.td24 12/13/19 Phenazopyridine HCl [Pyridium 100 mg Tablet] 100 mg PO BID #20 tablet 12/13/19 Tamsulosin HCl [Flomax 0.4 mg Cap.sr] 0.4 mg PO DAILY #30 cap.sr.24h 12/13/19 History of Present Illiness History of Present Illness: MIRYAM GOFF is a 64 year old male Per Previous Physician: "MIRYAM GOFF is a 64 year old male who presents to the emergency room with a 2-week history of dysuria. He has been treated by the [facility] with 2 di fferent antibiotic courses for a urinary tract infection without improvement and with progressively worsening dysuria. His dysuria is now extremely severe and has recently been accompanied by nausea with vomiting and occasional chills he denies other associated or accompanying signs and symptoms. He denies prior similar episodes. He has not identified any aggravating or ameliorating factors for his dysuria. In the emergency room he was found to have a low-grade fever and a urinalysis that showed 5 RBCs, 2 white cells and a negative leukocyte esterase and a negative nitrite. He was empirically started on antibiotic therapy in the emergency room after obtaining urine and blood cultures. He was subsequently admitted to observation status for further evaluation treatment." Hospital Course Hospital Course: Per Previous Physician: "MIRYAM GOFF is a 64 year old male who presents to the emergency room with a 2-week history of dysuria. He has been treated by the [facility] with 2 different antibiotic courses for a urinary tract infection without improvement and with progressively worsening dysuria. His dysuria is now extremely severe and has recently been accompanied by nausea with vomiting and occasional chills he denies other associated or accompanying signs and symptoms. He denies prior similar episodes. He has not identified any aggravating or ameliorating factors for his dysuria. In the emergency room he was found to have a low-grade fever and a urinalysis that showed 5 RBCs, 2 white cells and a negative leukocyte esterase and a negative nitrite. He was empirically started on antibiotic therapy in the emergency room after obtaining urine and blood cultures. He was subsequently admitted to observation status for further evaluation treatment." 12/12/2019 CT abdomen/pelvis has not been read and patient has a 2.3 cm right adrenal adenoma found incidentally. I initiated an adrenal adenoma work-up for hormone secreting tumor. So far, results have not been consistent with a hormone secreting adenoma. PSA is within normal limits. Patient still feels like he is "pissing razor blades" and is still having a great deal of pain when he urinates. I started him on Flomax and nursing did a PVR that only showed approximately 100 cc of urine in his bladder. UA was bloody but not overtly infected. It did not meet criteria for reflex to culture. Blood culture 1/2 bottles positive for staph epidermidis, almost certainly a contaminant. I called the patient's son and discussed the case with him in great detail after I had already discussed the case in great detail with the patient himself. I encouraged both of them to please be respectful to the nurses and not verbally abuse them as has been done so far. CT abdomen pelvis also showed possible renal blood flow insufficiency order renal artery/vein PVL which did not show any acute abnormalities. Ultimately, patient needs a urology evaluation which we do not have at this facility. He has had multiple courses of antibiotics and they have not made any difference in his symptoms according to the patient and his son. I recommend he get a pyelogram from a urologist. I am not sure I will be able to solve his problem here and this may need to be a work-up that is continued outpatient in the urology clinic. Highly suspect patient has nephrolithiasis and has passed a kidney stone and this was the cause of his urethral pain as well as the findings on the CT scan showing suspected pyelonephritis mild. Pain is completely resolved on day of discharge. Patient given a short course of Pyridium and he will complete antibiotics with ciprofloxacin. Blood cultures 1/2 contaminated with staph epidermidis. ED did not send patient's urine for culture before starting antibiotics. Plan discussed with patient and his son both are in agreement. Patient needs to follow-up with urology within the next week. (1) Urethritis, nonspecific, suspect nephrolithiasis Is this a current diagnosis for this admission?: Yes Plan: -Suspect patient has passed a kidney stone, pain is completely resolved at discharge has failed multiple courses of antibiotics outpatient given to him by [facility] abdomen/pelvis showed questionable mild pyelonephritis on the left Pyridium Needs urology outpatient evaluation and may benefit from pyelogram/cystogram Ciprofloxacin to complete antibiotic course at discharge (2) Nausea and vomiting Qualifiers: Vomiting type: unspecified Vomiting Intractability: non-intractable Qualified Code(s): R11.2 - Nausea with vomiting, unspecified Is this a current diagnosis for this admission?: Yes Plan: Antiemetics Resolved (3) Peripheral vascular disease Is this a current diagnosis for this admission?: Yes Plan: Brilinta continued Needs follow-up with outpatient vascular surgery (4) Acute encephalopathy Is this a current diagnosis for this admission?: Yes Plan: Unclear if patient was actually altered on admission or if this is simply his baseline vascular dementia (5) HLD (hyperlipidemia) Qualifiers: Hyperlipidemia type: unspecified Qualified Code(s): E78.5 - Hyperlipidemia, unspecified Is this a current diagnosis for this admission?: Yes Plan: Diet controlled (6) HTN (hypertension) Qualifiers: Hypertension type: essential hypertension Qualified Code(s): I10 - Essential (primary) hypertension Is this a current diagnosis for this admission?: Yes Plan: Home medications, controlled (7) History of CVA (cerebrovascular accident) Is this a current diagnosis for this admission?: Yes Plan: Has had approximately 5 strokes per the patient's son, and has some vascular dementia as a result of this Baseline mentation currently per son (8) 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 Is this a current diagnosis for this admission?: Yes Plan: Hormone work-up ordered, many lab results pending at discharge, discussed with patient and son these must be followed up with PCP Seen on CT Must be followed outpatient with serial imaging for growth and changes Physical Exam Vital Signs: Temp Pulse Resp BP Pulse Ox 97.7 F 71 20 120/70 93 12/13/19 14:30 12/13/19 14:30 12/13/19 14:30 12/13/19 14:30 12/13/19 14:30 Intake & Output 12/12/19 12/13/19 12/14/19 06:59 06:59 06:59 Intake Total 800 1320 300 Output Total 650 600 300 Balance 150 720 0 Weight 174.2 kg 80.7 kg Exam: General appearance: PRESENT: no acute distress, well-developed, well-nourished, states his pain is completely resolved and he would like to go home Head exam: PRESENT: atraumatic, normocephalic Eye exam: PRESENT: conjunctiva pink. ABSENT: scleral icterus Mouth exam: PRESENT: moist Respiratory exam: PRESENT: clear to auscultation kami. ABSENT: rales, rhonchi, wheezes Cardiovascular exam: PRESENT: RRR. ABSENT: diastolic murmur, rubs, systolic murmur GI/Abdominal exam: PRESENT: normal bowel sounds, soft. ABSENT: distended, guarding, mass, organolmegaly, rebound, tenderness Neurological exam: PRESENT: alert, awake, oriented to person, oriented to place, oriented to time, oriented to situation Psychiatric exam: PRESENT: appropriate affect, normal mood Skin exam: PRESENT: dry, intact, warm Results Laboratory Results: WBC 9.3 10^3/uL (4.0-10.5) 12/12/19 10:50 RBC 3.83 10^6/uL (4.35-5.55) L 12/12/19 10:50 Hgb 11.5 g/dL (13.5-17.0) L D 12/12/19 10:50 Hct 32.8 % (37.9-51.0) L 12/12/19 10:50 MCV 86 fl (80-97) 12/12/19 10:50 MCH 30.1 pg (27.0-33.4) 12/12/19 10:50 MCHC 35.1 g/dL (32.0-36.0) 12/12/19 10:50 RDW 13.3 % (11.5-14.0) 12/12/19 10:50 Plt Count 212 10^3/uL (150-450) 12/12/19 10:50 Lymph % (Auto) 5.8 % (13-45) L 12/10/19 22:20 [place] % (Auto) 5.6 % (3-13) 12/10/19 22:20 Eos % (Auto) 0.1 % (0-6) 12/10/19 22:20 Baso % (Auto) 0.4 % (0-2) 12/10/19 22:20 Absolute Neuts (auto) 13.6 10^3/uL (1.7-8.2) H 12/10/19 22:20 Absolute Lymphs (auto) 0.9 10^3/uL (0.5-4.7) 12/10/19 22:20 Absolute Monos (auto) 0.9 10^3/uL (0.1-1.4) 12/10/19 22:20 Absolute Eos (auto) 0.0 10^3/uL (0.0-0.6) 12/10/19 22:20 Absolute Basos (auto) 0.1 10^3/uL (0.0-0.2) 12/10/19 22:20 Seg Neutrophils % 88.1 % (42-78) H 12/10/19 22:20 PT 13.8 SEC (11.4-15.4) 12/10/19 22:20 INR 1.04 12/10/19 22:20 VBG pH 7.38 (7.30-7.42) 12/11/19 03:18 VBG pCO2 46.2 mmHg (35-63) 12/11/19 03:18 VBG HCO3 26.5 mmol/L (20-32) 12/11/19 03:18 VBG Base Excess 0.8 mmol/L 12/11/19 03:18 Sodium 135.1 mmol/L (137-145) L 12/13/19 07:43 Potassium 3.4 mmol/L (3.6-5.0) L 12/13/19 07:43 Chloride 99 mmol/L (98-107) 12/13/19 07:43 Carbon Dioxide 29 mmol/L (22-30) 12/13/19 07:43 Anion Gap 7 (5-19) 12/13/19 07:43 BUN 7 mg/dL (7-20) 12/13/19 07:43 Creatinine 0.81 mg/dL (0.52-1.25) 12/13/19 07:43 Est GFR ( Amer) > 60 (>60) 12/13/19 07:43 Est GFR (MDRD) Non-Af > 60 (>60) 12/13/19 07:43 Glucose 109 mg/dL (75-110) 12/13/19 07:43 Lactic Acid 1.1 mmol/L (0.7-2.1) 12/11/19 08:38 Calcium 8.5 mg/dL (8.4-10.2) 12/13/19 07:43 Magnesium 1.9 mg/dL (1.6-2.3) 12/12/19 10:50 Total Bilirubin 1.8 mg/dL (0.2-1.3) H 12/10/19 22:20 Direct Bilirubin 0.4 mg/dL (0.0-0.4) 12/10/19 22:20 Neonat Total Bilirubin Not Reportable 12/10/19 22:20 Neonat Direct Bilirubin Not Reportable 12/10/19 22:20 Neonat Indirect Bili Not Reportable 12/10/19 22:20 AST 17 U/L (17-59) 12/10/19 22:20 ALT 10 U/L (<50) 12/10/19 22:20 Alkaline Phosphatase 99 U/L (38-126) 12/10/19 22:20 Total Protein 7.2 g/dL (6.3-8.2) 12/10/19 22:20 Albumin 4.3 g/dL (3.5-5.0) 12/10/19 22:20 Prostate Specific Ag 0.910 ng/mL (<4.00) 12/12/19 10:50 Random Cortisol 14.60 ug/dL (None Established) 12/12/19 10:50 Urine Color STRAW 12/11/19 00:15 Urine Appearance CLEAR 12/11/19 00:15 Urine pH 7.0 (5.0-9.0) 12/11/19 00:15 Ur Specific [place] 1.003 12/11/19 00:15 Urine Protein NEGATIVE mg/dL (NEGATIVE) 12/11/19 00:15 Urine Glucose (UA) NEGATIVE mg/dL (NEGATIVE) 12/11/19 00:15 Urine Ketones NEGATIVE mg/dL (NEGATIVE) 12/11/19 00:15 Urine Blood LARGE (NEGATIVE) H 12/11/19 00:15 Urine Nitrite (Reflex) NEGATIVE (NEGATIVE) 12/11/19 00:15 Urine Bilirubin NEGATIVE (NEGATIVE) 12/11/19 00:15 Urine Urobilinogen NEGATIVE mg/dL (<2.0) 12/11/19 00:15 Leukocyte Esterase Rfl NEGATIVE (NEGATIVE) 12/11/19 00:15 Urine RBC (Auto) 5 /HPF 12/11/19 00:15 Urine Bacteria (Auto) 1+ /HPF 12/11/19 00:15 Urine WBC (Reflex) 2 /HPF 12/11/19 00:15 Urine Ascorbic Acid NEGATIVE (NEGATIVE) 12/11/19 00:15 Impressions: Chest X-Ray 12/11/19 01:35 IMPRESSION: No acute cardiopulmonary process copyright 2011 [employer]- All Rights Reserved Abdomen/Pelvis CT 12/11/19 14:30 IMPRESSION: Suspect mild left pyelonephritis. No bowel obstruction. Vascular Ultrasound 12/12/19 00:00 IMPRESSION: NO DOPPLER EVIDENCE OF HEMODYNAMICALLY SIGNIFICANT RENAL ARTERY STENOSIS. Plan Plan of Treatment: Follow-up with PCP Follow-up with urology Ciprofloxacin to complete antibiotic course Time Spent: Greater than 30 Minutes Stroke Is this a Stroke Patient?: Yes Stroke Pt being discharged on Anti-thrombolytic therapy?: No Reason(s) for not prescribing Anti-thrombolytic therapy:: Procedure not indicated Stroke Pt being discharged on Anti-coagulation therapy?: No Reason(s) for not prescribing Anti-coagulation therapy:: Procedure not indicated Stroke Pt being discharged on Statins?: Yes Acute Heart Failure Is this a Heart Failure Patient?: No
[2019-12-14 10:55] LABS: TESTOSTERONE FREE (DIRECT) 6.6 pg/mL (6.6-18.1)
== END 2019-12-13 16:26 | disposition home or self-care (01) | DRG 690 ==
LOC: ER 19:07 → INTOOBSV 12-11 04:06 → EH 12-11 04:06 → 5 12-11 07:57 → OBSVTOIN 12-12 13:07
PROVIDERS: ADMIT Emergency Medicine; ATTEND Internal Medicine
DX: N34.2 Other urethritis (principal); N12 Tubulo-interstitial nephritis, not specified as acute or chronic; N20.0 Calculus of kidney; F32.9 Major depressive disorder, single episode, unspecified; D35.00 Benign neoplasm of unspecified adrenal gland; F43.10 Post-traumatic stress disorder, unspecified; E78.5 Hyperlipidemia, unspecified; R41.82 Altered mental status, unspecified; I10 Essential (primary) hypertension; F17.200 Nicotine dependence, unspecified, uncomplicated; J44.9 Chronic obstructive pulmonary disease, unspecified; Z86.73 Personal history of transient ischemic attack (TIA), and cerebral infarction without residual deficits; Z86.14 Personal history of Methicillin resistant Staphylococcus aureus infection; Z88.8 Allergy status to other drugs, medicaments and biological substances; Z89.512 Acquired absence of left leg below knee; Z82.49 Family history of ischemic heart disease and other diseases of the circulatory system; Z79.899 Other long term (current) drug therapy; Z79.02 Long term (current) use of antithrombotics/antiplatelets
CPT/HCPCS: 36415; 71045; 74178; 80048; 80053; 81001; 82024; 82088; 82157; 82530; 82533; 82626; 82803; 83498; 83605; 83735; 84153; 84244; 84402; 84403; 85025; 85027; 85610; 86592; 87040; 87077; 87150; 87186; 93976; 96361; 96365; 96375; 99285; G0378; J0692; J1450; J1644; J2020; J2185; J2270; J2405; J2550; J3490; J7120

== ENCOUNTER 2020-02-04 12:45 | Emergency (ER) | payer OTHER, MEDICARE ==
--- NOTE | 2020-02-04 12:57 | ER Document Report ---
ED Medical Screen (RME) - General Chief Complaint: Abdominal Pain Stated Complaint: ABDOMINAL PAIN Time Seen by Provider: 02/04/20 12:53 Primary Care Provider: CARMELLA TAYLOR PA [Primary Care Provider] - Follow up as needed Mode of Arrival: Medic Information source: Patient Notes: 64-year-old male presented to ED for not being able to eat not been able to keep anything down for about a week or 2. He states he went to [facility] yesterday and they told him to come to the emergency room to get CAT scans and labs to find out why he could need they think he has a bowel obstruction. He has a colostomy and is is empty. He states the colostomy bag has been empty for about 5 or 6 days. I have greeted and performed a rapid initial assessment of this patient. A comprehensive ED assessment and evaluation of the patient, analysis of test results and completion of medical decision making process will be conducted by an additional ED providers. He does not have a rectum due to an injury to the rectum TRAVEL OUTSIDE OF THE [place] IN LAST 30 DAYS: No - Related Data Allergies/Adverse Reactions: nalbuphine [From Nubain] Allergy (Verified 07/03/18 15:37) Past Medical History - General Information source: Patient - Past Medical History Cardiac Medical History: Reports: Hx Hypercholesterolemia, Hx Hypertension, Hx Peripheral Vascular Disease Denies: Hx Coronary Artery Disease, Hx DVT, Hx Pulmonary Embolism Pulmonary Medical History: Reports: Hx COPD Denies: Hx Asthma Neurological Medical History: Reports: Hx Cerebrovascular Accident - x 5. Denies: Hx Seizures Endocrine Medical History: Denies: Hx Diabetes Mellitus Type 1, Hx Diabetes Mellitus Type 2, Hx Hyperthyroidism, Hx Hypothyroidism Renal/ Medical History: Denies: Hx Peritoneal Dialysis GI Medical History: Denies: Hx Cirrhosis, Hx Hepatitis Musculoskeltal Medical History: Reports Hx Arthritis, Denies Hx Fibromyalgia Skin Medical History: Denies Hx Eczema, Reports Hx MRSA, Denies Hx Psoriasis Psychiatric Medical History: Reports: Hx Depression, Hx Post Traumatic Stress Disorder Infectious Medical History: Denies: Hx Hepatitis Past Surgical History: Reports: Hx Abdominal Surgery - ostomy, Hx Bowel Diversion - Diverting colostomy on 06/14/2018, Hx Carotid Endarterectomy - Bilateral, Hx Colostomy - Diverting colostomy to allow for wound healing, Hx Orthopedic Surgery - left shoulder, left BKA, Hx Vascular Surgery - Left femoral endarterectomy with left external iliac angioplasty and stent. - Immunizations Hx Diphtheria, Pertussis, Tetanus Vaccination: Yes Doctor's Discharge - Discharge Referrals: CARMELLA TAYLOR PA [Primary Care Provider] - Follow up as needed
--- NOTE | 2020-02-04 14:43 | ER Document Report ---
ED General - General Chief Complaint: Medical Complaint Stated Complaint: ABDOMINAL PAIN Time Seen by Provider: 02/04/20 12:53 Primary Care Provider: CARMELLA TAYLOR PA [Primary Care Provider] - Follow up as needed Mode of Arrival: Medic Notes: Patient with prior strokes and diverting colostomy secondary to sacral decubiti and poorly healing wounds in setting of incontinence presents with decreased output from his ostomy bag for 3 days. No stool no gas but he did not have abdominal pain but does feel nauseous and is unable to tolerate any p.o. Denies distention. TRAVEL OUTSIDE OF THE [place] IN LAST 30 DAYS: No - Related Data Allergies/Adverse Reactions: nalbuphine [From Nubain] Allergy (Verified 07/03/18 15:37) Past Medical History - General Information source: Patient - Social History Smoking Status: Current Every Day Smoker Family History: CAD, Hypertension. denies: DM, Malignancy Patient has homicidal ideation: No - Past Medical History Cardiac Medical History: Reports: Hx Hypercholesterolemia, Hx Hypertension, Hx Peripheral Vascular Disease Denies: Hx Coronary Artery Disease, Hx DVT, Hx Pulmonary Embolism Pulmonary Medical History: Reports: Hx COPD Denies: Hx Asthma Neurological Medical History: Reports: Hx Cerebrovascular Accident - x 5. Denies: Hx Seizures Endocrine Medical History: Denies: Hx Diabetes Mellitus Type 1, Hx Diabetes Mellitus Type 2, Hx Hyperthyroidism, Hx Hypothyroidism Renal/ Medical History: Denies: Hx Peritoneal Dialysis GI Medical History: Denies: Hx Cirrhosis, Hx Hepatitis Musculoskeletal Medical History: Reports Hx Arthritis, Denies Hx Fibromyalgia Skin Medical History: Denies Hx Eczema, Reports Hx MRSA, Denies Hx Psoriasis Psychiatric Medical History: Reports: Hx Depression, Hx Post Traumatic Stress Disorder Infectious Medical History: Denies: Hx Hepatitis Past Surgical History: Reports: Hx Abdominal Surgery - ostomy, Hx Bowel Diversion - Diverting colostomy on 06/14/2018, Hx Carotid Endarterectomy - Bilateral, Hx Colostomy - Diverting colostomy to allow for wound healing, Hx Orthopedic Surgery - left shoulder, left BKA, Hx Vascular Surgery - Left femoral endarterectomy with left external iliac angioplasty and stent. - Immunizations Hx Diphtheria, Pertussis, Tetanus Vaccination: Yes Review of Systems - Review of Systems Notes: REVIEW OF SYSTEMS GEN: Denies fever, chills, weight loss ENT: Denies sore throat, nasal discharge, ear pain EYES: Denies blurry vision, eye pain, discharge CV: Denies chest pain, palpitations, edema RESP: Denies cough, shortness of breath, wheezing GI: Decreased stool output MSK: Denies joint pain/swelling, edema, SKIN: Denies rash, skin lesions LYMPH: Denies swollen glands/lymph nodes NEURO: Denies headache, focal weakness or numbness, dizziness PSYCH: Denies depression, suicidal or homicidal ideation PHYSICAL EXAMINATION General: No acute distress, well-nourished Head: Atraumatic, normocephalic ENT: Mouth normal, oropharynx moist, no exudates or tonsillar enlargement Eyes: Conjunctiva normal, pupils equal, lids normal Neck: No JVD, supple, no guarding CVS: Normal rate, regular rhythm, no murmurs Resp: No resp distress, equal and normal breath sounds bilaterally GI: Bowel sounds soft no tenderness nondistended empty ostomy bag Ext: No deformities, no edema, normal range of motion in upper and lower ext Back: No CVA or midline TTP Skin: No rash, warm Lymphatic: No lymphadeopathy noted Neuro: Awake, alert. Face symmetric. GCS 15. Physical Exam - Vital signs Vitals: Temp 98.8 F 02/04/20 13:02 Course - Re-evaluation Re-evalutation: 02/04/20 15:41 Patient presents with p.o. intolerance decreased ostomy output without pain or distention. Ileus versus obstruction versus dehydration Could also be a stricture or stenosis He was difficult to get IV access on and refused further attempts by nursing. In order to get his diagnosis going I did a noncontrast scan. 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 I went to reassess him after a few hours in the ED and there is still no gas in his bag, there is no peristalsis of his ostomy although it does look pink, and there is no tenderness around his ostomy. He tried to drink water in my presence and spit it back up immediately. I placed an ultrasound-guided IV fluids Zofran and discussed with Dr. Omer. 02/04/20 16:43 Dr. Omer has examined the patient. He probed and examined the ostomy with his finger not feel an obstruction. Patient states that usually if he eats Ensure it goes right through him and would like to try that. He does take chronic narcotics for his chronic leg pain. We will get him pain meds given his leg is hurting and now his belly hurts after the ostomy exam. Dr. Omer and I agreed that if the patient is able to tolerate p.o. and empty bowels or fluid into his back and wants to go home he can. If he remains unable to tolerate p.o. 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 Erin Gutierrez assuming he may need to be admitted but also prepped him for discharge as needed disposition based on the plan above is fine with me Dr. Martin will notify hospitalist that the patient is to be admitted - Vital Signs Vital signs: Temp Pulse Resp BP Pulse Ox 98.8 F 02/04/20 13:02 - Laboratory Results Result Diagrams: 02/04/20 15:40 02/04/20 15:40 Laboratory Results Interpreted: 02/04/20 02/04/20 15:40 15:40 WBC 15.5 H Lymph % (Auto) 5.5 L Absolute Neuts (auto) 13.8 H Seg Neutrophils % 88.7 H Glucose 114 H Critical Laboratory Results Reviewed: No Critical Results - Radiology Results Critical Radiology Results Reviewed: No Critical Results Procedures - Additional Procedures IV insertion Additional Procedures: IV insertion Notes: 02/04/20 16:13 Left antecubital/deep brachial vein prepped in the usual manner with ChloraPrep. Probe sterilized. Using sterile gel and anemic ultrasound guidance the right deep brachial vein was cannulated with an extralong 20-gauge catheter which was flushed and secured in usual fashion Patient tolerated the procedure well Discharge - Discharge Clinical Impression: Narcotic bowel syndrome Condition: Good Disposition: HOME, SELF-CARE Instructions: Abdominal Pain ([facility]) Additional Instructions: your surgeon, Dr. Omer, has evaluated you and determined that your slow bowels are due to narcotic use. Please supplement with a bowel regimen such as MiraLAX 1 or 2 capfuls per day. Please follow-up with Dr. Omer in his office within the next week. If you develop worsening pain cannot tolerate anything, vomiting or decreased output from urostomy bag return to ED immediately. Referrals: CLAUDIA,CARMELLA M, PA [Primary Care Provider] - Follow up as needed
[2020-02-04] MEDS ORDERED: NORMAL SALINE 1000 ML 1,000 ML IV ONE (15:32)
[2020-02-04] MEDS ORDERED: ONDANSETRON HCL INJ/PF 4 MG/2 ML SDV IV ONE (15:32)
--- NOTE | 2020-02-04 15:40 | RADIOLOGY REPORT (SQ) ---
EXAM DESCRIPTION: CT ABD/PELVIS NO ORAL OR IV IMAGES COMPLETED DATE/TIME: 02/04/2020 3:15 pm REASON FOR STUDY: SBO COMPARISON: 12/11/2019 TECHNIQUE: CT scan of the abdomen and pelvis performed without intravenous or oral contrast. Images reviewed with lung, soft tissue, and bone windows. Reconstructed coronal and sagittal MPR images revi ewed. All images stored on PACS. All CT scanners at this facility use dose modulation, iterative reconstruction, and/or weight based d osing when appropriate to reduce radiation dose to as low as reasonably achievable (ALARA). [facility]: Dose Right [facility]: CareDose [facility]: Dose Right [facility]: Teradose 4D [facility]: Smart [employer] RADIATION DOSE: CT Rad equipment meets quality standard of care and radiation dose reduction techniq ues were employed. CTDIvol: 11.6 mGy. DLP: 600 mGy-cm.mGy. LIMITATIONS: None. FINDINGS: LOWER CHEST: Minimal dependent hypoventilatory change a right. NON-CONTRASTED LIVER, SPLEEN, ADRENALS: Evaluation limited by lack of IV contrast. Low-attenuation ( -21 Hounsfield units) 16 mm right adrenal nodule compatible with lipid rich adenoma. No other Identi fied significant masses. Calcified splenic granuloma. PANCREAS: No masses. No peripancreatic inflammatory changes. GALLBLADDER: No identified stones by CT criteria. No inflammatory changes to suggest cholecystitis. RIGHT KIDNEY AND URETER: No suspicious masses. Assessment limited by lack of IV contrast. Scattered vascular calcifications with possible punctate nonobstructing stones. No hydronephrosis or hydrour eter. LEFT KIDNEY AND URETER: No suspicious masses. Exophytic 22 mm cyst. Assessment limited by lack of I V contrast. Scattered vascular calcifications with possible punctate nonobstructing stones. No hy dronephrosis or hydroureter. AORTA AND RETROPERITONEUM: Scattered vascular calcifications without aneurysm. Left iliac stents. P artially visualized right SFA stent. Unchanged hypoattenuation about the proximal SFA, likely seroma . BOWEL AND PERITONEAL CAVITY: Mild debris-filled distal esophagus. No evidence of intestinal obstruct ion. Large bowel and fat containing left lower quadrant parastomal hernia. No evidence of intestina l obstruction. APPENDIX: Not identified. PELVIS, BLADDER, AND ABDOMINAL WALL:Unremarkable urinary bladder. No pelvic free fluid, adenopathy o r mass. Postsurgical changes within the bilateral groins with seroma in the right groin as above. BONES: No acute bony abnormality. No suspicious lytic or blastic osseous lesions. OTHER: No other significant finding. IMPRESSION: 1. No evidence of intestinal obstruction. Left lower quadrant fat and bowel containing parastomal hernia. 2. No other evidence of acute intra-abdominal/pelvic process. Incidental findings as above. COMMENT: Quality ID # [id number]: Final reports with documentation of one or more dose reduction techniques (e.g., Automated exposure control, adjustment of the mA and/or kV according to patient size, use of iterative reconstruction technique) TECHNICAL DOCUMENTATION: JOB ID: [id number] 2010 [employer]- All Rights Reserved Reading location - IP/workstation name: [email or web address]
[2020-02-04 15:56] LABS: ABSOLUTE BASOPHILS # (AUTO) 0.1 10^3/uL (0.0-0.2); ABSOLUTE LYMPHOCYTES (AUTO) 0.8 10^3/uL (0.5-4.7); ABSOLUTE MONOCYTES (AUTO) 0.8 10^3/uL (0.1-1.4); ABSOLUTE NEUT (AUTO) 13.8 10^3/uL (1.7-8.2); BASOPHILS % (AUTO) 0.6 % (0-2); EOSINOPHILS % (AUTO) 0.2 % (0-6); HEMOGLOBIN 14.2 g/dL (13.5-17.0); LYMPHOCYTES % (AUTO) 5.5 % (13-45); MEAN CORPUSCULAR HEMOGLOBIN 28.6 pg (27.0-33.4); MEAN CORPUSCULAR HGB CONC 33.8 g/dL (32.0-36.0); MEAN CORPUSCULAR VOLUME 85 fl (80-97); PLATELET COUNT 323 10^3/uL (150-450); RED BLOOD COUNT 4.96 10^6/uL (4.35-5.55); RED CELL DISTRIBUTION WIDTH 13.9 % (11.5-14.0); SEGMENTED NEUTROPHILS % (AUTO) 88.7 % (42-78); TOTAL CELLS COUNTED % (AUTO) 100 %; WHITE BLOOD COUNT 15.5 10^3/uL (4.0-10.5)
[2020-02-04 16:18] LABS: ANION GAP 11 (5-19); BLOOD UREA NITROGEN 16 mg/dL (7-20); CALCIUM 9.8 mg/dL (8.4-10.2); CARBON DIOXIDE 29 mmol/L (22-30); CHLORIDE 101 mmol/L (98-107); GLUCOSE 114 mg/dL (75-110); POTASSIUM 3.7 mmol/L (3.6-5.0)
[2020-02-04] MEDS ORDERED: FENTANYL CITRATE INJ/PF 100 MCG/2 ML AMPUL IV ONE (16:33)
[2020-02-04] MEDS ORDERED: OXYCODONE-ACETAMINOPHEN 5-325 MG TABLET PO ONE (16:33)
[2020-02-04 18:09] VITALS: BP 210/92
== END 2020-02-04 18:56 | disposition other institution (70) ==
LOC: ER 12:45
DX: R10.9 Unspecified abdominal pain (principal); K59.03 Drug induced constipation; Z93.3 Colostomy status; Z88.8 Allergy status to other drugs, medicaments and biological substances; I10 Essential (primary) hypertension; J44.9 Chronic obstructive pulmonary disease, unspecified
CPT/HCPCS: 99285; 96361; 96374; 96375; 36415; 83605; 85025; 80048; 74176; J3010; J2405; J7030